=== PATIENT | male | born 1945 | race Caucasian/White ===

== ENCOUNTER 2021-08-31 12:52 | Emergency (ER) | payer MEDICARE, SELFPAY ==
[2021-08-31 16:09] VITALS: BP 180/95; PULSE 81; RESP 18; TEMP 37.3; O2SAT 99; BMI 39.4
[2021-08-31 17:53] LABS: COVID-19 Test Negative (Negative); IDNOW Serial# 08D9AD1C
--- NOTE | 2021-08-31 18:14 | ED.URI ---
HPI - URI/Sore Throat General Chief Complaint: Upper Respiratory Symptoms Stated Complaint: sore throat chest pain Time Seen by Provider: 08/31/21 17:43 History of Present Illness HPI Narrative: Patient here for COVID testing, he did have a mild cough for a day or 2 and a mild sore throat but both symptoms are gone today he is asymptomatic He is eating and drinking with no discomfort no shortness of breath no cough no sputum, he is fully vaccinated Related Data Allergies Allergy/AdvReac Type Severity Reaction Status Date / Time No Known Allergies Allergy Unverified 05/20/20 19:28 [No Known Allergies*] Review of Systems Review of Systems: Negatives are no fever no chills no dizziness no weakness no headache no runny nose no sore throat no neck pain no chest pain no shortness of breath no sputum no abdominal pain no nausea or vomiting Yes all other systems are reviewed and are negative FOR[facility]LY [facility], [facility] Past Medical History Source: nursing notes reviewed Medical History (Updated 09/01/21 @ 00:00 by Background Daemon) Hypertension Social History Social History Advance Directives: No Advance Directives Information Provided: No Physical Exam Vital Signs: Vital Signs: Last Vital Signs Temp 99.2 F 08/31/21 16:09 Pulse 81 08/31/21 16:09 Resp 18 08/31/21 16:09 BP 180/95 H 08/31/21 16:09 Pulse Ox 99 08/31/21 16:09 BMI result Body Mass Index 39.4 General appearance comfortable no acute distress The eyes no redness or discharge The sinuses nontender The pharynx clear with moist mucous membranes no redness swelling or exudate The neck is supple The chest is clear to auscultation bilateral with full symmetric equal breath sounds Heart no murmur auscultated Extremities full range of motion x4 Course Course Course Narrative: Well-appearing patient with negative COVID test is discharged, he is asymptomatic at this time MDM - URI/Sore Throat Lab Data Labs: Lab Results 08/31/21 Range/Units 17:00 COVID-19 (RUMA) Negative (Negative) COVID-19 Clin Com SEE NOTE Discharge Plan Discharge Clinical Impression: Upper respiratory infection Patient Disposition: Home, Self-Care Additional Instructions: COVID test today was negative, and her called symptoms seem to be done Your exam was normal, oxygen level was normal Your blood pressure was elevated so follow with primary doctor for further evaluation to control blood pressure Return to the ER any worse condition or any concerns Interventions: ED Discharge Assessment Last Done: 08/31/21 18:36 Discharge Date/Time: 08/31/21 18:37
== END 2021-08-31 18:37 | disposition home or self-care (01) ==
PROVIDERS: Emergency Provider Emergency Medicine Emergency Medical Services; PCP Internal Medicine
DX: J06.9 Acute upper respiratory infection, unspecified (principal); Z20.822 Contact with and (suspected) exposure to COVID-19; J02.9 Acute pharyngitis, unspecified; I10 Essential (primary) hypertension
CPT/HCPCS: 36415; 87635; 99283

== ENCOUNTER 2021-10-29 14:17 | Inpatient (IN) | payer MEDICARE, SELFPAY ==
--- NOTE | 2021-10-29 | ECG_ITS ---
Test Reason : CHEST PAIN Blood Pressure : / mmHG Vent. Rate : 075 BPM Atrial Rate : 075 BPM P-R Int : 140 ms QRS Dur : 084 ms QT Int : 356 ms P-R-T Axes : -11 -49 042 degrees QTc Int : 397 ms Normal sinus rhythm Left axis deviation Abnormal ECG No previous ECGs available Referred By: Generic ED Physician Electronically Signed By:ARPITA KEBEDE
--- NOTE | ~2021-10-29 | US_ITS ---
EXAMINATION: US VENOUS ULTRASOUND WITH DOPPLER LOWER EXTREMITY, BILATERAL CLINICAL INFORMATION: Shortness of breath. Found to have pulmonary thromboembolism on CTA of the chest done on 10/29/2021. Bilateral lower extremity DVT study is requested. Patient apparently has history of DVT x2 on the left. COMPARISON: CT of the chest done on 10/29/2021. Right lower extremity DVT study done on 08/12/2019. TECHNIQUE: Ultrasound of the deep veins is performed from the hip to the calf with compression sonography and color and pulse Doppler assessment. Spectral analysis with color-flow imaging is performed. FINDINGS: RIGHT: There is normal venous compression and respiratory variation and augmented flow. The visualized common femoral vein, superficial femoral vein, profunda femoral vein, popliteal vein, and the trifurcation region shows no evidence of deep venous thrombosis. There is no significant popliteal fossa cyst. LEFT: There is normal venous compression and respiratory variation and augmented flow. The visualized common femoral vein, superficial femoral vein, and profunda femoral vein shows no evidence of deep venous thrombosis. Intraluminal thrombus however is noted within the distal femoral vein as well as popliteal vein, likely chronic. There are no prior studies available at the moment for comparison. There is no significant popliteal fossa cyst. US/US venous duplex LE BI IMPRESSION: 1. No DVT demonstrated in the right lower extremity, unchanged since 08/12/2019. 2. Intraluminal thrombus is present within the left distal femoral vein and popliteal vein, likely chronic. There are however no prior studies available at the moment for comparison. Follow-up evaluation is recommended in 5-7 days to assess for any possible change. This critical result was discussed with Dr. Mason at 9:16 AM on 10/30/2021 and it was ascertained that the content and urgency of the report was understood at the time of direct communication.
--- NOTE | ~2021-10-29 | CT_ITS ---
EXAMINATION: CT ANGIOGRAM OF THE CHEST WITH CONTRAST (CT PULMONARY ANGIOGRAM FOR PE) CLINICAL INFORMATION: Shortness of breath. Elevated D-dimer test. COMPARISON: CXR from 10/29/2021 TECHNIQUE: Prior to contrast administration, noncontrast localization images were obtained. Subsequently, multidetector volumetric imaging was performed from the thoracic inlet to below the diaphragms following the administration of 65 mL Omnipaque 350 intravenous contrast. No contrast reaction reported. Sagittal, coronal, and MIP oblique sagittal reformatted images were obtained on the CT workstation, uploaded to PACS, and reviewed. This CT examination was performed using dose optimization techniques as appropriate, variously including the following: *Automated exposure control *Adjustment of mA and/or kV according to patient size (this includes techniques or standardized protocols for targeted exams where dose is matched to indication/reason for exam; i.e. extremities or head) *Use of iterative reconstruction technique DLP: Total exam dose-length product 666 mGy-cm FINDINGS: LUNGS AND PLEURA: Trachea and central airways are widely patent and normal in caliber. Linear opacity of mild atelectasis in right lower lobe. No pulmonary consolidation or pleural effusion. Small, 0.3 cm calcified granuloma is present in the right lower lobe (image 328, series 7). No suspicious lung nodule. QUALITY OF STUDY/CONTRAST BOLUS: Satisfactory. CARDIOVASCULAR: Pulmonary arteries are normal in size. There is a nonocclusive filling defect in the anterior segmental branch of the left upper lobe (images [id number], series 7). There are no large pulmonary emboli. The heart size is normal. Trace pericardial effusion is present. There is atherosclerotic calcification of the left anterior descending coronary artery. Mild atherosclerosis of the thoracic aorta without aneurysm or dissection. MEDIASTINUM/LOWER NECK: The esophagus is unremarkable. No mediastinal mass. LYMPHATICS: No pathologic sized axillary, hilar or mediastinal lymph nodes. There are peribronchial lymph nodes in the central right lower lobe that, on coronal images, measures 0.5 cm and 0.8 cm short axis dimension and the 0.5 cm lymph node is partially calcified. These are likely secondary to old granulomatous disease, given the finding of a calcified nodule in the right lower lobe. UPPER ABDOMEN: There is mild reflux of contrast into the inferior vena cava. This could be secondary to rapid rate of intravenous contrast administration and/or presence of mild heart strain. Note that there is no inward bowing of the interventricular septum. Therefore, there is no overt heart strain. OSSEOUS STRUCTURES: No acute or suspicious osseous abnormality. CT/CT angio chest PE protocol IMPRESSION: * Small embolism in the branch to the anterior segment of the left upper lobe. * Mild coronary artery atherosclerosis. Trace pericardial effusion is present. * The finding of contrast reflux into the IVC could be a manifestation of mild right heart strain. The critical test result was discussed with Neelam Servin NP, at 9:27 PM on 10/29/2021 and it was ascertained that the content and the importance of the findings was understood at the time of the direct communication.
--- NOTE | ~2021-10-29 | XR_ITS ---
EXAMINATION: XR CHEST CLINICAL INFORMATION: Shortness of breath COMPARISON: None TECHNIQUE: Frontal view of the chest was obtained. FINDINGS: No significant abnormality is noted involving the heart, lungs, mediastinum, bony thorax or soft tissues. XR/XR chest 1V IMPRESSION: Unremarkable examination.
[2021-10-29 14:25] VITALS: BP 158/85; PULSE 81; RESP 17; TEMP 36.6; O2SAT 99; BMI 38.6
--- NOTE | 2021-10-29 16:46 | ED.CHESTPAIN ---
HPI - Chest Pain General Chief Complaint: Chest Pain Stated Complaint: CP/SOB Time Seen by Provider: 10/29/21 21:48 Source: patient Mode of arrival: ambulatory Limitations: no limitations History of Present Illness HPI narrative: 76-year-old male presents for 2 weeks of chest pain, shortness of breath, shortness of breath on exertion, and chills over the past few days. Chest pain and shortness of breath worsens with exertion, does not notice any edema, dizziness, or changes in vision. MD complaint: chest pain Onset (ago): week(s) (2) Timing of current episode: episodic Prior episodes: Yes Onset: during rest and during exertion Pain location: substernal Pain radiation: none Severity: moderate Pain scale (0-10): 6 Quality: tightness and aching Exacerbating factors: exertion and inspiration Treatment prior to arrival: none Risk Factors Coronary artery disease risk factors: diabetes, hyperlipidemia and hypertension Thoracic aortic dissection risk factors: none Pulmonary embolism risk factors: history of deep vein thrombosis Related Data Home Medications Medication Instructions Recorded Confirmed cholecalciferol (vitamin D3) 50 1 tab PO DAILY 10/29/21 10/29/21 mcg (2,000 unit) tablet duloxetine 20 mg capsule,delayed 1 cap PO DAILY 10/29/21 10/29/21 release glipizide 5 mg tablet 1 tab PO BID 10/29/21 10/29/21 levothyroxine 150 mcg tablet 1 tab PO DAILY 10/29/21 10/29/21 loratadine 10 mg tablet 1 tab PO DAILY 10/29/21 10/29/21 metformin 500 mg tablet 2 tab PO BID 10/29/21 10/29/21 tamsulosin 0.4 mg capsule 1 cap PO BEDTIME 10/29/21 10/29/21 warfarin 5 mg tablet 5 mg PO DAILY 10/29/21 10/29/21 Allergies Allergy/AdvReac Type Severity Reaction Status Date / Time No Known Allergies Allergy Verified 10/29/21 23:26 [No Known Allergies*] Review of Systems Review of Systems: Constitutional: No Weight loss, No Fever, positive Chills, No Night Sweats, No Fatigue, No Malaise ENT/Mouth: No Hearing loss, No Ear Pain, No Nasal Congestion, No Sinus Pain, No Hoarseness, No sore throat, No Rhinorrhea, No Swallowing Difficulty Eyes: No Eye Pain, No Swelling, No Redness, No Foreign Body, No Discharge, No Vision Changes Cardiovascular: Positive Chest Pain, positive SOB, positive Dyspnea on Exertion, No Orthopnea, No Edema, No Palpitations Respiratory: No Cough, No Sputum, No Wheezing, No Smoke Exposure, No Dyspnea Gastrointestinal: No Nausea, No Vomiting, No Diarrhea, No abdominal Pain, No Hematochezia, No Melena Genitourinary: No irregular bleeding, No Dysuria, No Urinary Frequency, No Hematuria, No Urinary Incontinence, No Urgency, No Flank Pain, No Urinary Flow Changes, No Hesitancy Musculoskeletal: No joint pain, No Myalgias, No Joint Swelling Skin: No Skin Lesions, No rash Neuro: No Weakness, No Numbness, No Paresthesias, No Loss of Consciousness, No Dizziness, No Headache Psych: No Anxiety/Panic, No Depression, No SI/HI/AH/VH Heme/Lymph: No Bruising, No Bleeding,No Lymphadenopathy Endocrine: No Polyuria, No Polydipsia, No Temperature Intolerance Yes all other systems are reviewed and are negative [facility] Past Medical History Attestation statement: The following information was validated with the patient. Source: old records reviewed Medical History Hypertension Social History Social History Advance Directives: No Advance Directives Information Provided: No Physical Exam Vital Signs: Vital Signs: Last Vital Signs Temp 98.2 F 10/29/21 23:29 Pulse 66 10/29/21 23:29 Resp 18 10/29/21 23:29 BP 172/94 H 10/29/21 23:29 Pulse Ox 98 10/29/21 23:29 BMI result Body Mass Index 37.8 Appearance: Alert. Oriented X3. No acute distress. Head: Normal external exam. Normocephalic. Atraumatic. No Nathan signs noted. No raccoon eyes noted Eyes: PERRLA. EOMI. Conjunctiva and sclera normal. Eyelids normal. ENT: TM's Normal. Pharynx normal. Uvula midline. Moist mucous membranes. No trismus noted. No drooling noted. No muffled voice noted. Neck: Normal inspection. Neck supple. No adenopathy. CVS: Normal heart rate and rhythm. Heart sound normal. No murmurs noted. Apical pulse equal to pulses to extremities. No edema noted. Respiratory: No respiratory distress. Painless inspiration. Breath sounds normal. No wheezes/rales/rhonchi noted. Chest nontender. No accessory muscle usage noted or decreased air movement noted. Abdomen: Soft and nontender. Bowel sounds normal in all 4 quadrants. No distention noted. No organomegaly noted. No visible injury noted. Back: No CVA tenderness. Full range of motion noted. Skin: Skin warm and dry. Normal skin color. Normal skin turgor. No rashes/lesions/lacerations noted. Extremities: No lower extremity edema. Extremities exhibit normal range of motion. Extremities nontender. Neuro: cranial nerves 2-12 intact, no focal neural deficits, strength 5/5 to all extremities, No motor deficit. No sensory deficit. Course Course Course Narrative: 76-year-old male presents with approximately 2 weeks of chest pain, shortness of breath and shortness of breath on exertion with a few days of chills. Patient does not report any fevers, sick contacts, productive cough, dizziness, or abdominal pain. 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 18:40 elevated D-dimer. Order for PE study 21:30 discussion with Radiology study is positive for embolism to the anterior segment of left upper lobe and there is a finding of contrast reflux into the IVC which could be a manifestation of mild right heart strain. Patient does have trace pericardial effusion and mild coronary artery arthrosclerosis. 22:15 discussion with hospitalist, plan of care is to admit for right heart strain and PE. Will start heparin drip at this time. MDM - Chest Pain Differential Diagnosis Differential diagnosis: Likely fracture of rib, pneumothorax, stable angina, atypical chest pain, st elevation myocardial infarction, chest pain and biliary colic Differential diagnosis: PE Medical Records Data Attestation: I reviewed the patient's medical records. Lab Data Attestation: I reviewed the patient's lab results. Result diagrams: 10/29/21 17:29 10/29/21 17:55 Labs: Lab Results 10/29/21 10/29/21 10/29/21 Range/Units 17:29 17:29 17:29 WBC 4.1 L (4.8-10.8) X10*3/uL RBC 5.16 (4.60-5.80) X10*6/uL Hgb 13.6 L (14.0-18.0) g/dl Hct 45.0 (42.0-52.0) % MCV 87.2 (80.0-98.0) fL MCH 26.4 L (27.0-33.0) pg MCHC 30.2 L (31.0-36.0) g/dl RDW 13.9 (11.0-16.0) % Plt Count 225 (160-400) X10*3/uL MPV 10.3 (9.4-12.4) fL Immature Gran % (Auto) 0.2 (0.0-0.4) % Neut % (Auto) 47.5 (45-73) % Lymph % (Auto) 40.1 H (20-40) % [place] % (Auto) 8.1 (2-11) % Eos % (Auto) 3.4 (0-4) % Baso % (Auto) 0.7 (0-2) % Lymph # (Auto) 1.6 (1.2-4.9) X10*3/uL [place] # (Auto) 0.3 (0.1-1.2) X10*3/uL Eos # (Auto) 0.1 (0.0-0.4) X10*3/uL Baso # (Auto) 0.0 (0.0-0.2) X10*3/uL Abs Immat Gran (auto) 0.01 (0.00-0.03) X10*3/uL Absolute Neuts (auto) 1.9 L (2.0-8.3) x10*3/uL Absolute Nucleated RBC 0.000 (0.0-0.012) X10*3/uL Nucleated RBC % (auto) 0.0 (0.0-0.2) /100WBC PT 17.7 H (9.9-13.0) SEC INR 1.5 H (0.9-1.1) APTT 32.9 (24.1-38.0) SEC D-Dimer High Sensitivty 756 NG/ML Sodium (135-145) mmol/L Potassium (3.3-5.1) mmol/L Chloride (96-108) mmol/L Carbon Dioxide (22-29) mmol/L Anion Gap (12-20) BUN (9-16) mg/dL Creatinine (0.5-1.4) mg/dL Estim Creat Clear Calc Estimated GFR POC Glucose (60-115) mg/dL Random Glucose (60-115) mg/dL Calcium (8.4-10.2) mg/dL Magnesium (1.6-2.6) mg/dL Total Bilirubin (0.0-1.0) mg/dL Direct Bilirubin (0.0-0.5) mg/dL AST (5-37) U/L ALT (0-40) U/L Alkaline Phosphatase (39-117) U/L Troponin I High Sens 5.2 (<3.5-35.0) ng/L B-Natriuretic Peptide 72 (<100) pg/mL Total Protein (6.5-8.0) g/dL Albumin (3.5-5.0) g/dL Lipase (8-78) U/L Urine Color Urine Appearance Urine pH (5.0-8.0) Ur Specific [place] (1.005-1.025) Urine Protein (NEG-TRACE) MG/DL Urine Glucose (UA) (NEG) MG/DL Urine Ketones (NEG) MG/DL Urine Blood (NEG) Urine Nitrite (NEG) Ur Leukocyte Esterase (NEG) COVID-19 (RUMA) (Negative) COVID-19 Clin Com 10/29/21 10/29/21 10/29/21 Range/Units 17:29 17:53 17:55 WBC (4.8-10.8) X10*3/uL RBC (4.60-5.80) X10*6/uL Hgb (14.0-18.0) g/dl Hct (42.0-52.0) % MCV (80.0-98.0) fL MCH (27.0-33.0) pg MCHC (31.0-36.0) g/dl RDW (11.0-16.0) % Plt Count (160-400) X10*3/uL MPV (9.4-12.4) fL Immature Gran % (Auto) (0.0-0.4) % Neut % (Auto) (45-73) % Lymph % (Auto) (20-40) % [place] % (Auto) (2-11) % Eos % (Auto) (0-4) % Baso % (Auto) (0-2) % Lymph # (Auto) (1.2-4.9) X10*3/uL [place] # (Auto) (0.1-1.2) X10*3/uL Eos # (Auto) (0.0-0.4) X10*3/uL Baso # (Auto) (0.0-0.2) X10*3/uL Abs Immat Gran (auto) (0.00-0.03) X10*3/uL Absolute Neuts (auto) (2.0-8.3) x10*3/uL Absolute Nucleated RBC (0.0-0.012) X10*3/uL Nucleated RBC % (auto) (0.0-0.2) /100WBC PT (9.9-13.0) SEC INR (0.9-1.1) APTT (24.1-38.0) SEC D-Dimer High Sensitivty NG/ML Sodium 142 (135-145) mmol/L Potassium 4.5 (3.3-5.1) mmol/L Chloride 109 H (96-108) mmol/L Carbon Dioxide 24 (22-29) mmol/L Anion Gap 14 (12-20) BUN 11 (9-16) mg/dL Creatinine 1.09 (0.5-1.4) mg/dL Estim Creat Clear Calc 80.2 Estimated GFR > 60 POC Glucose 103 (60-115) mg/dL Random Glucose 118 H (60-115) mg/dL Calcium 8.8 (8.4-10.2) mg/dL Magnesium 2.1 (1.6-2.6) mg/dL Total Bilirubin 0.5 (0.0-1.0) mg/dL Direct Bilirubin 0.2 (0.0-0.5) mg/dL AST 17 (5-37) U/L ALT 8 (0-40) U/L Alkaline Phosphatase 67 (39-117) U/L Troponin I High Sens (<3.5-35.0) ng/L B-Natriuretic Peptide (<100) pg/mL Total Protein 6.6 (6.5-8.0) g/dL Albumin 3.8 (3.5-5.0) g/dL Lipase 25 (8-78) U/L Urine Color Urine Appearance Urine pH (5.0-8.0) Ur Specific [place] (1.005-1.025) Urine Protein (NEG-TRACE) MG/DL Urine Glucose (UA) (NEG) MG/DL Urine Ketones (NEG) MG/DL Urine Blood (NEG) Urine Nitrite (NEG) Ur Leukocyte Esterase (NEG) COVID-19 (RUMA) Negative (Negative) COVID-19 Clin Com See Note 10/29/21 10/29/21 Range/Units 19:30 22:04 WBC (4.8-10.8) X10*3/uL RBC (4.60-5.80) X10*6/uL Hgb (14.0-18.0) g/dl Hct (42.0-52.0) % MCV (80.0-98.0) fL MCH (27.0-33.0) pg MCHC (31.0-36.0) g/dl RDW (11.0-16.0) % Plt Count (160-400) X10*3/uL MPV (9.4-12.4) fL Immature Gran % (Auto) (0.0-0.4) % Neut % (Auto) (45-73) % Lymph % (Auto) (20-40) % [place] % (Auto) (2-11) % Eos % (Auto) (0-4) % Baso % (Auto) (0-2) % Lymph # (Auto) (1.2-4.9) X10*3/uL [place] # (Auto) (0.1-1.2) X10*3/uL Eos # (Auto) (0.0-0.4) X10*3/uL Baso # (Auto) (0.0-0.2) X10*3/uL Abs Immat Gran (auto) (0.00-0.03) X10*3/uL Absolute Neuts (auto) (2.0-8.3) x10*3/uL Absolute Nucleated RBC (0.0-0.012) X10*3/uL Nucleated RBC % (auto) (0.0-0.2) /100WBC PT (9.9-13.0) SEC INR (0.9-1.1) APTT (24.1-38.0) SEC D-Dimer High Sensitivty NG/ML Sodium (135-145) mmol/L Potassium (3.3-5.1) mmol/L Chloride (96-108) mmol/L Carbon Dioxide (22-29) mmol/L Anion Gap (12-20) BUN (9-16) mg/dL Creatinine (0.5-1.4) mg/dL Estim Creat Clear Calc Estimated GFR POC Glucose (60-115) mg/dL Random Glucose (60-115) mg/dL Calcium (8.4-10.2) mg/dL Magnesium (1.6-2.6) mg/dL Total Bilirubin (0.0-1.0) mg/dL Direct Bilirubin (0.0-0.5) mg/dL AST (5-37) U/L ALT (0-40) U/L Alkaline Phosphatase (39-117) U/L Troponin I High Sens 3.6 (<3.5-35.0) ng/L B-Natriuretic Peptide (<100) pg/mL Total Protein (6.5-8.0) g/dL Albumin (3.5-5.0) g/dL Lipase (8-78) U/L Urine Color YELLOW Urine Appearance CLEAR Urine pH 6.0 (5.0-8.0) Ur Specific [place] 1.025 (1.005-1.025) Urine Protein NEG (NEG-TRACE) MG/DL Urine Glucose (UA) NEG (NEG) MG/DL Urine Ketones NEG (NEG) MG/DL Urine Blood NEG (NEG) Urine Nitrite NEG (NEG) Ur Leukocyte Esterase NEG (NEG) COVID-19 (RUMA) (Negative) COVID-19 Clin Com Imaging Data Chest x-ray: Attestation: I personally reviewed and interpreted this imaging study as follows: Radiologist's impression: EXAMINATION: XR CHEST CLINICAL INFORMATION: Shortness of breath COMPARISON: None TECHNIQUE: Frontal view of the chest was obtained. FINDINGS: No significant abnormality is noted involving the heart, lungs, mediastinum, bony thorax or soft tissues. XR/XR chest 1V IMPRESSION: Unremarkable examination. CT PE: Attestation: I personally reviewed and interpreted this imaging study as follows: Radiologist's impression: FINDINGS: LUNGS AND PLEURA: Trachea and central airways are widely patent and normal in caliber. Linear opacity of mild atelectasis in right lower lobe. No pulmonary consolidation or pleural effusion. Small, 0.3 cm calcified granuloma is present in the right lower lobe (image 328, series 7). No suspicious lung nodule. QUALITY OF STUDY/CONTRAST BOLUS: Satisfactory. CARDIOVASCULAR: Pulmonary arteries are normal in size. There is a nonocclusive filling defect in the anterior segmental branch of the left upper lobe (images [id number], series 7). There are no large pulmonary emboli. The heart size is normal. Trace pericardial effusion is present. There is atherosclerotic calcification of the left anterior descending coronary artery. Mild atherosclerosis of the thoracic aorta without aneurysm or dissection. MEDIASTINUM/LOWER NECK: The esophagus is unremarkable. No mediastinal mass. LYMPHATICS: No pathologic sized axillary, hilar or mediastinal lymph nodes. There are peribronchial lymph nodes in the central right lower lobe that, on coronal images, measures 0.5 cm and 0.8 cm short axis dimension and the 0.5 cm lymph node is partially calcified. These are likely secondary to old granulomatous disease, given the finding of a calcified nodule in the right lower lobe. UPPER ABDOMEN: There is mild reflux of contrast into the inferior vena cava. This could be secondary to rapid rate of intravenous contrast administration and/or presence of mild heart strain. Note that there is no inward bowing of the interventricular septum. Therefore, there is no overt heart strain. OSSEOUS STRUCTURES: No acute or suspicious osseous abnormality.? CT/CT angio chest PE protocol IMPRESSION: *? Small embolism in the branch to the anterior segment of the left upper lobe. *? Mild coronary artery atherosclerosis. Trace pericardial effusion is present. *? The finding of contrast reflux into the IVC could be a manifestation of mild right heart strain. ? ? The critical test result was discussed with Neelam Servin NP, at 9:27 PM on 10/29/2021 and it was ascertained that the content and the importance of the findings was understood at the time of the direct communication. ECG Data ECG #1: Attestation: I personally reviewed and interpreted this ECG as follows: ECG interpretation date: 10/29/21 ECG interpretation time: 14:29 Prior ECG tracings: not available for review Interpretation: Vent. rate 75 BPM ID interval 140 ms QRS duration 84 ms QT/QTc 356/397 ms P-R-T axes -11 -49 42 Normal sinus rhythm Left anterior fascicular block Abnormal ECG No previous ECGs available Scores [place] PE Clinical symptoms of DVT: 3 Previous DVT or PE: 1.5 Score: 4.5 2-tier Risk: likely risk (17-53%) Critical Care Time Critical Care Time Critical Care Time: Yes Total Critical Care Time: 65 Attestation: I have personally provided critical care time exclusive of time spent on separately billable procedures. Time includes review of laboratory data, radiology results, discussion with consultants, and monitoring for potential decompensation. Interventions were performed as documented. Discharge Plan Discharge Clinical Impression: Chest pain, Pulmonary embolism, Ventricular dysfunction, right Patient Disposition: Admitted As Inpatient
[2021-10-29 16:57] VITALS: BP 152/91; PULSE 68; RESP 16; TEMP 36.8; O2SAT 98
[2021-10-29 17:33] LABS: MANUAL DIFF FLAG NO
[2021-10-29 17:35] LABS: Basophils Percent Auto 0.7 % (0-2); Eosinophils Absolute Auto 0.1 X10*3/uL (0.0-0.4); Eosinophils Percent Auto 3.4 % (0-4); Hemoglobin 13.6 g/dl (14.0-18.0); Imm Gran Abs Auto 0.01 X10*3/uL (0.00-0.03); Imm Gran Pct Auto 0.2 % (0.0-0.4); Lymphocytes Absolute Auto 1.6 X10*3/uL (1.2-4.9); Lymphocytes Percent Auto 40.1 % (20-40); Mean Corpuscular HGB Conc 30.2 g/dl (31.0-36.0); Mean Corpuscular Hemoglobin 26.4 pg (27.0-33.0); Mean Corpuscular Volume 87.2 fL (80.0-98.0); Mean Platelet Volume 10.3 fL (9.4-12.4); Monocytes Absolute Auto 0.3 X10*3/uL (0.1-1.2); Monocytes Percent Auto 8.1 % (2-11); Neutrophils Absolute Auto 1.9 x10*3/uL (2.0-8.3); Neutrophils Percent Auto 47.5 % (45-73); Platelet Count 225 X10*3/uL (160-400); Red Blood Count 5.16 X10*6/uL (4.60-5.80); Red Cell Distribution Width 13.9 % (11.0-16.0); White Blood Count 4.1 X10*3/uL (4.8-10.8)
[2021-10-29 17:42] LABS: INTERNATIONAL NORM RATIO 1.5 (0.9-1.1); Prothrombin Time 17.7 SEC (9.9-13.0)
[2021-10-29 17:44] VITALS: BP 143/87; PULSE 68; RESP 16; TEMP 36.8; O2SAT 97
[2021-10-29 17:45] LABS: D Dimer High Sensitivity 756 NG/ML; Partial Thromboplastin Time 32.9 SEC (24.1-38.0)
[2021-10-29 17:55] LABS: B Type Natriuretic Peptide 72 pg/mL (<100); Troponin-I High Sensitivity 5.2 ng/L (<3.5-35.0)
[2021-10-29 17:58] LABS: Glucose, Whole Blood 103 mg/dL (60-115)
[2021-10-29 18:16] LABS: COVID-19 Test Negative (Negative)
[2021-10-29 18:27] LABS: Alanine Aminotransferase 8 U/L (0-40); Albumin Level 3.8 g/dL (3.5-5.0); Alkaline Phosphatase 67 U/L (39-117); Anion Gap 14 (12-20); Aspartate Amino Transferase 17 U/L (5-37); Bilirubin Direct 0.2 mg/dL (0.0-0.5); Bilirubin Total 0.5 mg/dL (0.0-1.0); Blood Urea Nitrogen 11 mg/dL (9-16); Calcium 8.8 mg/dL (8.4-10.2); Carbon Dioxide 24 mmol/L (22-29); Chloride 109 mmol/L (96-108); Creatinine Clr Calc Pharmacy 80.2; Estimated Glomerular Filt Rate > 60; Glucose Random 118 mg/dL (60-115); Lipase 25 U/L (8-78); Magnesium 2.1 mg/dL (1.6-2.6); Potassium 4.5 mmol/L (3.3-5.1); Sodium 142 mmol/L (135-145); Total Protein 6.6 g/dL (6.5-8.0)
[2021-10-29 19:18] VITALS: BP 149/94; PULSE 65; RESP 16; TEMP 36.7; O2SAT 97
[2021-10-29 19:40] LABS: Appearance Urine CLEAR; Color Urine YELLOW; Glucose Urine UA NEG (NEG); Leukocyte Esterase Urine NEG (NEG); Nitrite Urine NEG (NEG); Specific Gravity - Urine 1.025 (1.005-1.025); Urine Blood NEG (NEG); Urine Ketones NEG (NEG); Urine Protein NEG (NEG-TRACE)
[2021-10-29] MEDS: iohexoL 350 MG/ML 100 ML INFUS..BTL 65 ML IV (19:53)
[2021-10-29 21:36] VITALS: BP 159/90; PULSE 60; RESP 16; O2SAT 98
[2021-10-29 22:37] LABS: Troponin-I High Sensitivity 3.6 ng/L (<3.5-35.0)
[2021-10-29 22:45] VITALS: BMI 37.8
[2021-10-29] MEDS: Heparin Sodium,Porcine/1/2NS 25,000 UNIT/250 ML IV.SOLN 17.23 UNIT IVCONT (23:21)
--- NOTE | 2021-10-29 23:26 | PM.IMHP ---
History of Present Illness Date of Service: 10/29/21 Chief Complaint: sob, chest pain This is a 76-year-old male with past medical history of hypertension, DVT, depression anxiety, diabetes, hypothyroidism, BPH, presents to the hospital with complaints of left-sided chest pain. Patient reports that his pain has been going on for about 3-4 weeks, intermittent, radiating to both arms, lasting few minutes, occurring spontaneous and resolving spontaneously. Worse with deep inspiration. He describes the pain as sharp pain, 6/10. Patient reports some cough, as well as some sputum production, no abdominal pain nausea or vomiting, no diarrhea constipation, no urinary symptoms and no lower extremity edema. On arrival to the ED patient hemodynamically stable with no significant abnormal vitals except for a slightly elevated blood pressure Labs are significant for WBC count of 4.0, PT of 17.7, INR of 1.5, BNP of 72, troponin of 3.6, UA negative, Chest CT angiogram shows small embolism in the branch to the anterior segment of the left upper lobe. Contrast reflux into the IVC could be manage station of mild right heart failure Per patient he has had DVT in his left lower extremity twice in the past and has had placement of a filter in his left femoral vein and takes Coumadin. Patient reports compliance with Coumadin. Review of Systems Review of Systems: Yes all other systems are reviewed and are negative [facility] Medical History (Updated 10/30/21 @ 06:23 by Saroj Nagel MD) BPH (benign prostatic hyperplasia) Depression Diabetes History of colon cancer History of DVT (deep vein thrombosis) Hypertension Hypothyroidism Family History (Updated 10/30/21 @ 06:24 by Saroj aNgel MD) Mother Diabetes Other Hypertension Surgical History (Updated 10/30/21 @ 06:23 by Saroj Nagel MD) H/O thyroidectomy History of colon surgery S/P IVC filter Social History (Updated 10/30/21 @ 06:24 by Saroj Nagel MD) Alcohol intake: current Patient Tobacco Use Status: Never used Tobacco Use of substances other than those prescribed or required for medical reasons: No Advance Directives: No Advance Directives Information Provided: No Meds Allergies Allergy/AdvReac Type Severity Reaction Status Date / Time No Known Allergies Allergy Verified 10/29/21 23:26 [No Known Allergies*] Active Medications: Current Medications Heparin Sodium (Porcine) (Heparin Sodium,Porcine 5,000 Unit/Ml Vial) 4,900 unit 40 unit/kg (4900 unit) IVPUSH PROTOCOL BOLUS PRN; Protocol PRN Reason: 40 unit/kg - Heparin Protocol Heparin Sodium (Porcine) (Heparin Sodium,Porcine 5,000 Unit/Ml Vial) 9,800 unit 80 unit/kg (9800 unit) IVPUSH PROTOCOL BOLUS PRN; Protocol PRN Reason: 80 unit/kg - Heparin Protocol Heparin Sodium/Sodium Chloride () 25,000 unit in 250 mls @ 0 mls/hr IVCONT .Q0M EL; Protocol Last Admin: 10/29/21 23:21 Dose: 14 units/kg/hr, 17.23 mls/hr Documented by: Home Medications Medication Instructions Recorded Confirmed Last Taken Type cholecalciferol (vitamin D3) 50 1 tab PO DAILY 10/29/21 10/29/21 Unknown History mcg (2,000 unit) tablet duloxetine 20 mg capsule,delayed 1 cap PO DAILY 10/29/21 10/29/21 Unknown History release glipizide 5 mg tablet 1 tab PO BID 10/29/21 10/29/21 Unknown History levothyroxine 150 mcg tablet 1 tab PO DAILY 10/29/21 10/29/21 Unknown History loratadine 10 mg tablet 1 tab PO DAILY 10/29/21 10/29/21 Unknown History metformin 500 mg tablet 2 tab PO BID 10/29/21 10/29/21 Unknown History tamsulosin 0.4 mg capsule 1 cap PO BEDTIME 10/29/21 10/29/21 Unknown History warfarin 5 mg tablet 5 mg PO DAILY 10/29/21 10/29/21 Unknown History Physical Exam Vital Signs and Narrative: Vital Signs: Last Vital Signs Temp 98.0 F 10/29/21 19:18 Pulse 60 10/29/21 21:36 Resp 16 10/29/21 21:36 BP 159/90 H 10/29/21 21:36 Pulse Ox 98 10/29/21 21:36 BMI result Body Mass Index 37.8 Const: General: cooperative and no acute distress Orientation/consciousness: patient oriented x3 Eyes: General: appearance normal, both eyes and all related structures Resp: Effort & Inspection: normal respiratory effort Auscultation: clear to auscultation bilaterally Cardio: Rate: regular rate Rhythm: regular rhythm GI: Palpation (GI): Soft to palpation Auscultation: normal bowel sounds Skin: General skin exam: no rashes or lesions noted Neuro: General: patient oriented x3 Cognition (Neuro): normal cognition Extrem: General: Yes normal to inspection and Yes no pedal edema Results Labs CBC and Chem 7: 10/30/21 05:49 10/30/21 05:49 Labs: Laboratory Results - last 24 hr 10/29/21 10/29/21 10/29/21 17:29 17:29 17:29 MCV 87.2 MCH 26.4 L MCHC 30.2 L RDW 13.9 Plt Count 225 MPV 10.3 Immature Gran % (Auto) 0.2 Neut % (Auto) 47.5 Lymph % (Auto) 40.1 H [place] % (Auto) 8.1 Eos % (Auto) 3.4 Baso % (Auto) 0.7 Lymph # (Auto) 1.6 [place] # (Auto) 0.3 Eos # (Auto) 0.1 Baso # (Auto) 0.0 Abs Immat Gran (auto) 0.01 Absolute Neuts (auto) 1.9 L Absolute Nucleated RBC 0.000 Nucleated RBC % (auto) 0.0 PT 17.7 H INR 1.5 H APTT 32.9 D-Dimer High Sensitivty 756 Anion Gap Estim Creat Clear Calc Estimated GFR POC Glucose Random Glucose Calcium Magnesium Total Bilirubin Direct Bilirubin AST ALT Alkaline Phosphatase B-Natriuretic Peptide 72 Total Protein Albumin Lipase Urine Color Urine Appearance Urine pH Ur Specific [place] Urine Protein Urine Glucose (UA) Urine Ketones Urine Blood Urine Nitrite Ur Leukocyte Esterase COVID-19 (RUMA) COVID-19 Clin Com 10/29/21 10/29/21 10/29/21 17:29 17:53 17:55 MCV MCH MCHC RDW Plt Count MPV Immature Gran % (Auto) Neut % (Auto) Lymph % (Auto) [place] % (Auto) Eos % (Auto) Baso % (Auto) Lymph # (Auto) [place] # (Auto) Eos # (Auto) Baso # (Auto) Abs Immat Gran (auto) Absolute Neuts (auto) Absolute Nucleated RBC Nucleated RBC % (auto) PT INR APTT D-Dimer High Sensitivty Anion Gap 14 Estim Creat Clear Calc 80.2 Estimated GFR > 60 POC Glucose 103 Random Glucose 118 H Calcium 8.8 Magnesium 2.1 Total Bilirubin 0.5 Direct Bilirubin 0.2 AST 17 ALT 8 Alkaline Phosphatase 67 B-Natriuretic Peptide Total Protein 6.6 Albumin 3.8 Lipase 25 Urine Color Urine Appearance Urine pH Ur Specific [place] Urine Protein Urine Glucose (UA) Urine Ketones Urine Blood Urine Nitrite Ur Leukocyte Esterase COVID-19 (RUMA) Negative COVID-19 Clin Com See Note 10/29/21 19:30 MCV MCH MCHC RDW Plt Count MPV Immature Gran % (Auto) Neut % (Auto) Lymph % (Auto) [place] % (Auto) Eos % (Auto) Baso % (Auto) Lymph # (Auto) [place] # (Auto) Eos # (Auto) Baso # (Auto) Abs Immat Gran (auto) Absolute Neuts (auto) Absolute Nucleated RBC Nucleated RBC % (auto) PT INR APTT D-Dimer High Sensitivty Anion Gap Estim Creat Clear Calc Estimated GFR POC Glucose Random Glucose Calcium Magnesium Total Bilirubin Direct Bilirubin AST ALT Alkaline Phosphatase B-Natriuretic Peptide Total Protein Albumin Lipase Urine Color YELLOW Urine Appearance CLEAR Urine pH 6.0 Ur Specific [place] 1.025 Urine Protein NEG Urine Glucose (UA) NEG Urine Ketones NEG Urine Blood NEG Urine Nitrite NEG Ur Leukocyte Esterase NEG COVID-19 (RUMA) COVID-19 Clin Com Imaging Radiologist's Impressions: Impressions Chest X-Ray 10/29/21 14:45 IMPRESSION: Unremarkable examination. Chest CTA 10/29/21 20:30 IMPRESSION: * Small embolism in the branch to the anterior segment of the left upper lobe. * Mild coronary artery atherosclerosis. Trace pericardial effusion is present. * The finding of contrast reflux into the IVC could be a manifestation of mild right heart strain. The critical test result was discussed with Neelam Servin NP, at 9:27 PM on 10/29/2021 and it was ascertained that the content and the importance of the findings was understood at the time of the direct communication. Assessment and Plan (1) Pulmonary embolism: Status: Acute (2) Chest pain: Status: Acute (3) Ventricular dysfunction, right: Status: Acute Plan 76-year-old male with past medical history of DVT on Coumadin, with subtherapeutic INR presents to the hospital found to have PE # pulmonary embolus - likely secondary to subtherapeutic INR - patient reports history of IVC filter as well as history of DVT x2 in the past - INR subtherapeutic - will place on heparin drip - there is evidence of right heart strain, BNP is negative, will obtain echocardiogram - consult Hematology-Oncology # chest pain - likely secondary to PE - troponin negative x1, EKG shows no ST T-wave changes - will obtain echocardiogram in the setting of PE to rule out right heart dysfunction # diabetes - low-dose sliding scale insulin - hold oral antihyperglycemics - diabetic diet # BPH - continue tamsulosin # hypothyroidism - continue levothyroxine DVT prophylaxis: heparin Quality Stroke Does the patient have a stroke diagnosis?: No VTE Prior VTE?: No VTE Risk Level:: Medical - moderate - high VTE Device Contraindication: Treatment Not Indicated VTE Drug Contraindication: N/A - Med Ordered
[2021-10-29 23:29] VITALS: BP 172/94; PULSE 66; RESP 18; TEMP 36.8; O2SAT 98
--- NOTE | 2021-10-29 23:34 | PC.NURSE ---
patient resting comfortably in bed at this time. patient updated on plan of care and started on heparin drip. contacted provider for heparin bolus order, no heparin bolus desired at this time by care team. patient on secured entrance monitor, call sheikh in reach.
[2021-10-30 02:52] VITALS: BP 168/95; PULSE 61; RESP 14; O2SAT 98
--- NOTE | 2021-10-30 02:55 | PC.NURSE ---
Pt asleep on stretcher in between care in NAD, breathing with ease on RA, VSS. Pt awoke during VS, denies pain/discomfort. Heparin gtt continues to infuse appropriately. Pt SB-NSR on ekg monitor. Pt stretcher in low locked position, rails raised, call sheikh within reach.
[2021-10-30 05:44] VITALS: BP 173/90; PULSE 62; RESP 12; TEMP 36.7; O2SAT 98
[2021-10-30 05:54] LABS: MANUAL DIFF FLAG NO
[2021-10-30 05:55] LABS: Basophils Percent Auto 0.7 % (0-2); Eosinophils Absolute Auto 0.2 X10*3/uL (0.0-0.4); Hematocrit 44.7 % (42.0-52.0); Imm Gran Abs Auto 0.01 X10*3/uL (0.00-0.03); Imm Gran Pct Auto 0.2 % (0.0-0.4); Lymphocytes Percent Auto 50.4 % (20-40); Mean Corpuscular HGB Conc 31.3 g/dl (31.0-36.0); Mean Corpuscular Hemoglobin 26.6 pg (27.0-33.0); Monocytes Absolute Auto 0.3 X10*3/uL (0.1-1.2); Monocytes Percent Auto 6.9 % (2-11); Neutrophils Absolute Auto 1.4 x10*3/uL (2.0-8.3); Neutrophils Percent Auto 35.8 % (45-73); Platelet Count 220 X10*3/uL (160-400); Red Blood Count 5.26 X10*6/uL (4.60-5.80); Red Cell Distribution Width 13.9 % (11.0-16.0)
--- NOTE | 2021-10-30 05:55 | PC.NURSE ---
Pt awoken during VS and blood draw, denies pain/discomfort. Pt remains SB-NSR on quality assurance monitor chassis. Stretcher in low locked position, rails raised, call sheikh within reach. Awaiting PTT HD to result to titrate heparin gtt accordingly
[2021-10-30 06:12] LABS: Anion Gap 12 (12-20); Blood Urea Nitrogen 9 mg/dL (9-16); Carbon Dioxide 24 mmol/L (22-29); Chloride 107 mmol/L (96-108); Creatinine Clr Calc Pharmacy 81.6; Estimated Glomerular Filt Rate > 60; Glucose Random 113 mg/dL (60-115); Potassium 4.1 mmol/L (3.3-5.1); Sodium 139 mmol/L (135-145)
[2021-10-30 06:51] LABS: PTT Heparin Drip 188.6 SEC (53-77.9)
--- NOTE | 2021-10-30 06:54 | PC.NURSE ---
Pt's PTT HD critically high. Per protocol, heparin being held at this time and stat PTT HD ordered. Oncoming RN to be made aware.
[2021-10-30 07:23] LABS: Glucose, Whole Blood 112 mg/dL (60-115)
--- NOTE | 2021-10-30 07:24 | PHA.MEDREC ---
Pharmacy Consult ? Medication Reconciliation RN has completed the medication reconciliation. Pharmacy reviewed.
--- NOTE | 2021-10-30 08:01 | P.PNIM_ITS ---
Subjective Subjective Date of Service: 10/30/21 Interval History: pulm embolism , has of left leg dvt Review of Systems Patient chest tightness and shortness of breath seems to be improving Denies any abdominal pain or nausea or vomiting or fever or chills. Physical Exam Vital Signs: Vital Signs: Last Vital Signs Temp 98.0 F 10/30/21 05:44 Pulse 62 10/30/21 05:44 Resp 12 10/30/21 05:44 BP 173/90 H 10/30/21 05:44 Pulse Ox 98 10/30/21 05:44 BMI result Body Mass Index 37.8 Appearance: Alert.? Oriented X3.? not in distress.? Eyes: Pupils equal, round and reactive to light.? Sclera nonicteric.? ENT: Pharynx normal.? Moist mucous membranes. cvs: rrr, [id number] . res: clear to auscultation ,no rhonchii or wheezing abd: no rebound or guarding ,nt, bs present. ext pulses present , no cyanosis, has ch venostasis type changes on lower ext left>right . neuro: axo3 , nonfocal. Objective Data Active Medications Acetaminophen (Acetaminophen 325 Mg Tablet) 650 mg PO Q6H PRN PRN Reason: Pain, Mild (Pain Scale 1-3) Dextrose (Dextrose 50 % 25 Gm/50 Ml Syringe) 25 gm IVPUSH Q15M PRN; Protocol PRN Reason: per Hypoglycemia Standing Ord. Docusate Sodium (Docusate Sodium 100 Mg Capsule) 100 mg PO DAILY PRN PRN Reason: Constipation Duloxetine HCl (Duloxetine Hcl 20 Mg Capsule.Dr) 20 mg PO DAILY EL Glucose (Glucose Gel 15 Gm Gel..Gram.) 15 gm PO Q15M PRN; Protocol PRN Reason: per Hypoglycemia Standing Ord. Heparin Sodium (Porcine) (Heparin Sodium,Porcine 5,000 Unit/Ml Vial) 4,900 unit 40 unit/kg (4900 unit) IVPUSH PROTOCOL BOLUS PRN; Protocol PRN Reason: 40 unit/kg - Heparin Protocol Heparin Sodium (Porcine) (Heparin Sodium,Porcine 5,000 Unit/Ml Vial) 9,800 unit 80 unit/kg (9800 unit) IVPUSH PROTOCOL BOLUS PRN; Protocol PRN Reason: 80 unit/kg - Heparin Protocol Heparin Sodium/Sodium Chloride () 25,000 unit in 250 mls @ 0 mls/hr IVCONT .Q0M [facility]; Protocol Last Titration: 10/30/21 06:58 Dose: 0 units/kg/hr, 0 mls/hr Documented by: GHULAM Cosigned by: JOCELYN Insulin Human Lispro (Insulin Lispro 100 Unit/Ml 3 Ml Vial) 0 unit SUBCUT QIDACHS [facility]; Protocol Last Admin: 10/30/21 07:34 Dose: Not Given Documented by: JUANCARLOS Non-Admin Reason: No Insulin Coverage Levothyroxine Sodium (Levothyroxine Sodium 150 Mcg Tablet) 150 mcg PO DAILY@0600 [facility] Loratadine (Loratadine 10 Mg Tablet) 10 mg PO DAILY [facility] Ondansetron HCl (Ondansetron Hcl 4 Mg/2 Ml Vial) 4 mg IVPUSH Q8H PRN PRN Reason: Nausea and Vomiting Sodium Chloride (0.9 % Sodium Chloride Flush 3 Ml Syringe) 3 ml IVFLUSH QSHIFT [facility] Last Admin: 10/29/21 23:51 Dose: Not Given Documented by: GHULAM Non-Admin Reason: IV Running Tamsulosin HCl (Tamsulosin Hcl 0.4 Mg Capsule) 0.4 mg PO BEDTIME [facility] Vitamin D (Cholecalciferol (Vitamin D3) 25 Mcg Tablet) 50 mcg PO DAILY [facility] Labs CBC & Chem 7: 10/30/21 05:49 10/30/21 05:49 Labs: Laboratory Results - last 24 hr 10/29/21 10/29/21 10/29/21 17:29 17:29 17:29 MCV 87.2 MCH 26.4 L MCHC 30.2 L RDW 13.9 Plt Count 225 MPV 10.3 Immature Gran % (Auto) 0.2 Neut % (Auto) 47.5 Lymph % (Auto) 40.1 H [place] % (Auto) 8.1 Eos % (Auto) 3.4 Baso % (Auto) 0.7 Lymph # (Auto) 1.6 [place] # (Auto) 0.3 Eos # (Auto) 0.1 Baso # (Auto) 0.0 Abs Immat Gran (auto) 0.01 Absolute Neuts (auto) 1.9 L Absolute Nucleated RBC 0.000 Nucleated RBC % (auto) 0.0 PT 17.7 H INR 1.5 H APTT 32.9 aPTT Heparin Protocol D-Dimer High Sensitivty 756 Anion Gap Estim Creat Clear Calc Estimated GFR POC Glucose Random Glucose Calcium Magnesium Total Bilirubin Direct Bilirubin AST ALT Alkaline Phosphatase B-Natriuretic Peptide 72 Total Protein Albumin Lipase Urine Color Urine Appearance Urine pH Ur Specific [place] Urine Protein Urine Glucose (UA) Urine Ketones Urine Blood Urine Nitrite Ur Leukocyte Esterase COVID-19 (RUMA) COVID-19 Clin Com 10/29/21 10/29/21 10/29/21 17:29 17:53 17:55 MCV MCH MCHC RDW Plt Count MPV Immature Gran % (Auto) Neut % (Auto) Lymph % (Auto) [place] % (Auto) Eos % (Auto) Baso % (Auto) Lymph # (Auto) [place] # (Auto) Eos # (Auto) Baso # (Auto) Abs Immat Gran (auto) Absolute Neuts (auto) Absolute Nucleated RBC Nucleated RBC % (auto) PT INR APTT aPTT Heparin Protocol D-Dimer High Sensitivty Anion Gap 14 Estim Creat Clear Calc 80.2 Estimated GFR > 60 POC Glucose 103 Random Glucose 118 H Calcium 8.8 Magnesium 2.1 Total Bilirubin 0.5 Direct Bilirubin 0.2 AST 17 ALT 8 Alkaline Phosphatase 67 B-Natriuretic Peptide Total Protein 6.6 Albumin 3.8 Lipase 25 Urine Color Urine Appearance Urine pH Ur Specific [place] Urine Protein Urine Glucose (UA) Urine Ketones Urine Blood Urine Nitrite Ur Leukocyte Esterase COVID-19 (RUMA) Negative COVID-19 Clin Com See Note 10/29/21 10/30/21 10/30/21 19:30 05:49 05:49 MCV 85.0 MCH 26.6 L MCHC 31.3 RDW 13.9 Plt Count 220 MPV 10.0 Immature Gran % (Auto) 0.2 Neut % (Auto) 35.8 L Lymph % (Auto) 50.4 H [place] % (Auto) 6.9 Eos % (Auto) 6.0 H Baso % (Auto) 0.7 Lymph # (Auto) 2.0 [place] # (Auto) 0.3 Eos # (Auto) 0.2 Baso # (Auto) 0.0 Abs Immat Gran (auto) 0.01 Absolute Neuts (auto) 1.4 L Absolute Nucleated RBC 0.000 Nucleated RBC % (auto) 0.0 PT INR APTT aPTT Heparin Protocol 188.6 H* D-Dimer High Sensitivty Anion Gap Estim Creat Clear Calc Estimated GFR POC Glucose Random Glucose Calcium Magnesium Total Bilirubin Direct Bilirubin AST ALT Alkaline Phosphatase B-Natriuretic Peptide Total Protein Albumin Lipase Urine Color YELLOW Urine Appearance CLEAR Urine pH 6.0 Ur Specific [place] 1.025 Urine Protein NEG Urine Glucose (UA) NEG Urine Ketones NEG Urine Blood NEG Urine Nitrite NEG Ur Leukocyte Esterase NEG COVID-19 (RUMA) COVID-19 Clin Com 10/30/21 10/30/21 05:49 07:19 MCV MCH MCHC RDW Plt Count MPV Immature Gran % (Auto) Neut % (Auto) Lymph % (Auto) [place] % (Auto) Eos % (Auto) Baso % (Auto) Lymph # (Auto) [place] # (Auto) Eos # (Auto) Baso # (Auto) Abs Immat Gran (auto) Absolute Neuts (auto) Absolute Nucleated RBC Nucleated RBC % (auto) PT INR APTT aPTT Heparin Protocol D-Dimer High Sensitivty Anion Gap 12 Estim Creat Clear Calc 81.6 Estimated GFR > 60 POC Glucose 112 Random Glucose 113 Calcium 9.0 Magnesium Total Bilirubin Direct Bilirubin AST ALT Alkaline Phosphatase B-Natriuretic Peptide Total Protein Albumin Lipase Urine Color Urine Appearance Urine pH Ur Specific [place] Urine Protein Urine Glucose (UA) Urine Ketones Urine Blood Urine Nitrite Ur Leukocyte Esterase COVID-19 (RUMA) COVID-19 Clin Com Assessment and Plan (1) Pulmonary embolism: Status: Acute (2) Ventricular dysfunction, right: Status: Acute (3) Chest pain: Status: Acute Plan 76-year-old male with past medical history of DVT on Coumadin, with subtherapeut ic INR presents to the hospital found to have PE 1. pulmonary embolus-? likely secondary to subtherapeutic INR sob and chest pain improving - ? patient reports history of IVC filter as well as history of DVT x2 in the past dvt study repeated-?Intraluminal thrombus is present within the left distal femoral vein and popliteal vein, likely chronic.?There are however no prior studies available at the moment for comparison. Follow-up evaluation is recommended in 5-7 days to assess for any possible change. -? INR subtherapeutic trop and bnp seems fine. on place on heparin drip -? there is evidence of right heart strain, BNP is negative, obtain echocardiogram -? consult Hematology-Oncology 2. chest pain -? likely secondary to PE -? troponin negative x2, EKG shows no ST T-wave changes echocardiogram in the setting of PE to rule out right heart dysfunction 3.? diabetes -? low-dose sliding scale insulin -? hold oral antihyperglycemics -? diabetic diet 4. ? BPH -? continue tamsulosin 5.? hypothyroidism -? continue levothyroxine ?DVT prophylaxis: heparin Quality Stroke Does the patient have a stroke diagnosis?: No VTE Prior VTE?: No VTE Risk Level:: Medical - moderate - high VTE Device Contraindication: Treatment Not Indicated VTE Drug Contraindication: N/A - Med Ordered
[2021-10-30 08:15] LABS: PTT Heparin Drip > 200.0 SEC (53-77.9)
[2021-10-30] MEDS: Levothyroxine Sodium 150 MCG TABLET PO (08:23)
[2021-10-30] MEDS: Loratadine 10 MG TABLET PO (08:23)
[2021-10-30] MEDS: Cholecalciferol (Vitamin D3) 25 MCG TABLET 50 MCG PO (08:23)
[2021-10-30] MEDS: 0.9 % Sodium Chloride Flush 3 ML SYRINGE IVFLUSH (08:23)
[2021-10-30] MEDS: DULoxetine HCl 20 MG CAPSULE.DR PO (08:23)
--- NOTE | 2021-10-30 08:27 | PC.NURSE ---
PTT-HD remains critical, greater than 200. Heparin gtt remains held at this time. no bleeding noted or reported. Voided 200 of yellow urine. Bedside ultrasound of lower extr at this time. No insulin coverage needed POC 112. Breathing even/unlabored, sat 98% on room air. AM meds given
[2021-10-30 09:37] LABS: PTT Heparin Drip 59.1 SEC (53-77.9)
--- NOTE | 2021-10-30 10:09 | PC.NURSE ---
New PTT-HD 59.1, will restart per protocol at 10units/kg/hr
[2021-10-30 11:21] VITALS: BP 169/96; PULSE 66; RESP 15; TEMP 36.5; O2SAT 97
[2021-10-30 12:12] LABS: Glucose, Whole Blood 102 mg/dL (60-115)
[2021-10-30 16:47] LABS: PTT Heparin Drip 71.8 SEC (53-77.9)
--- NOTE | 2021-10-30 16:49 | PM.HEMONCCN ---
Subjective - Subjective Chief complaint: pulmonary embolism Patient: new to practice Consult date: 10/30/21 Primary Care Provider: Chloe Ridley MD HPI - Consult Narrative Reason for consult: pulmonary embolism left upper lobe Narrative: Timothy Quiroz is a 76 year old male who came to the ER with several days of chest pain and was found to have a PE in his IKE. He has a history about ten years ago of DVT in the left leg and a second clot and is on indefinite anticoagulation with warfarin. The INR on admission was subtherapeutic.He receives primary care at [facility] in [place] on [facility]. He may have had an IVC filter at one point but it is not mentioned in the report of an abdominal CT done at [facility]. Review of Systems - Constitutional Reports fatigue - ENT Reports other - Cardiovascular Reports chest pain - Respiratory Reports dyspnea - Gastrointestinal Reports other - Genitourinary Genitourinary: Reports difficulty urinating - Musculoskeletal Reports other [facility] Medical History: Medical History (Last Updated 10/30/21 @ 06:23 by Saroj Nagel MD) BPH (benign prostatic hyperplasia) Depression Diabetes History of colon cancer History of DVT (deep vein thrombosis) Hypertension Hypothyroidism Family History: Family History (Last Updated 10/30/21 @ 06:24 by Saroj Nagel MD) Mother Diabetes Other Hypertension Surgical History: Surgical History (Last Updated 10/30/21 @ 06:23 by Saroj Nagel MD) H/O thyroidectomy History of colon surgery S/P IVC filter Social History: Social History (Last Updated 10/30/21 @ 06:24 by Saroj Nagel MD) Tobacco History: Patient Tobacco Use Status: Never used Tobacco Substance Use History: Use of substances other than those prescribed or required for medical reasons: No Advance Directives: Advance Directives: No Advance Directives Information Provided: No Home Medications and Allergies Current Medications: Current Medications Acetaminophen (Acetaminophen 325 Mg Tablet) 650 mg PO Q6H PRN PRN Reason: Pain, Mild (Pain Scale 1-3) Dextrose (Dextrose 50 % 25 Gm/50 Ml Syringe) 25 gm IVPUSH Q15M PRN; Protocol PRN Reason: per Hypoglycemia Standing Ord. Docusate Sodium (Docusate Sodium 100 Mg Capsule) 100 mg PO DAILY PRN PRN Reason: Constipation Duloxetine HCl (Duloxetine Hcl 20 Mg Capsule.) 20 mg PO DAILY [facility] Last Admin: 10/30/21 08:23 Dose: 20 mg Documented by: Glucose (Glucose Gel 15 Gm Gel..Gram.) 15 gm PO Q15M PRN; Protocol PRN Reason: per Hypoglycemia Standing Ord. Heparin Sodium (Porcine) (Heparin Sodium,Porcine 5,000 Unit/Ml Vial) 4,900 unit 40 unit/kg (4900 unit) IVPUSH PROTOCOL BOLUS PRN; Protocol PRN Reason: 40 unit/kg - Heparin Protocol Heparin Sodium (Porcine) (Heparin Sodium,Porcine 5,000 Unit/Ml Vial) 9,800 unit 80 unit/kg (9800 unit) IVPUSH PROTOCOL BOLUS PRN; Protocol PRN Reason: 80 unit/kg - Heparin Protocol Heparin Sodium/Sodium Chloride () 25,000 unit in 250 mls @ 0 mls/hr IVCONT .Q0M [facility]; Protocol Last Titration: 10/30/21 10:25 Dose: 10 units/kg/hr, 12.85 mls/hr Documented by: Insulin Human Lispro (Insulin Lispro 100 Unit/Ml 3 Ml Vial) 0 unit SUBCUT QIDACHS [facility]; Protocol Last Admin: 10/30/21 12:41 Dose: Not Given Documented by: Levothyroxine Sodium (Levothyroxine Sodium 150 Mcg Tablet) 150 mcg PO DAILY@0600 [facility] Last Admin: 10/30/21 08:23 Dose: 150 mcg Documented by: Loratadine (Loratadine 10 Mg Tablet) 10 mg PO DAILY [facility] Last Admin: 10/30/21 08:23 Dose: 10 mg Documented by: Ondansetron HCl (Ondansetron Hcl 4 Mg/2 Ml Vial) 4 mg IVPUSH Q8H PRN PRN Reason: Nausea and Vomiting Sodium Chloride (0.9 % Sodium Chloride Flush 3 Ml Syringe) 3 ml IVFLUSH QSHIFT [facility] Last Admin: 10/30/21 08:23 Dose: 3 ml Documented by: Tamsulosin HCl (Tamsulosin Hcl 0.4 Mg Capsule) 0.4 mg PO BEDTIME [facility] Vitamin D (Cholecalciferol (Vitamin D3) 25 Mcg Tablet) 50 mcg PO DAILY [facility] Last Admin: 10/30/21 08:23 Dose: 50 mcg Documented by: Home Medications Medication Instructions Recorded Confirmed Type cholecalciferol (vitamin D3) 50 1 tab PO DAILY 10/29/21 10/29/21 History mcg (2,000 unit) tablet duloxetine 20 mg capsule,delayed 1 cap PO DAILY 10/29/21 10/29/21 History release glipizide 5 mg tablet 1 tab PO BID 10/29/21 10/29/21 History levothyroxine 150 mcg tablet 1 tab PO DAILY 10/29/21 10/29/21 History loratadine 10 mg tablet 1 tab PO DAILY 10/29/21 10/29/21 History metformin 500 mg tablet 2 tab PO BID 10/29/21 10/29/21 History tamsulosin 0.4 mg capsule 1 cap PO BEDTIME 10/29/21 10/29/21 History warfarin 5 mg tablet 5 mg PO DAILY 10/29/21 10/29/21 History Allergies Allergy/AdvReac Type Severity Reaction Status Date / Time No Known Allergies Allergy Verified 10/29/21 23:26 [No Known Allergies*] Physical Exam Vital signs: Vital Signs Temp 97.7 F 10/30/21 11:21 Pulse 66 10/30/21 11:21 Resp 15 10/30/21 11:21 BP 169/96 H 10/30/21 11:21 Pulse Ox 97 10/30/21 11:21 Intake & Output 10/29/21 10/30/21 10/30/21 18:59 06:59 18:59 Intake Total 131.235 / 131.235 0 / 0 Output Total 700 / 700 200 / 200 Balance -568.765 / -568.765 -200 / -200 Urine Output (Average ml/kg/hr) 0.47 0.14 Intake: Intake, IV Amount 131.235 / 131.235 0 / 0 Heparin Sodium,Porcine/1/2NS 25 131.235 / 131.235 0 / 0 ,000 unit In 250 ml @ Per Protocol IVCONT .Q0M [facility] Rx#: [id number] Output: Output, Urine Amount 700 / 700 200 / 200 Other: Weight 125.645 kg 123.1 kg Weight in Grams [id number] Weight 123.1 kg - Constitutional Present: no acute distress - Routine HEENT Exam Head: Present: atraumatic, normal inspection - Routine Neck Exam Present: supple, full ROM, JVD - Routine Chest/Breast/Axilla Exam Breast: Present: Normal Exam - Routine Respiratory Exam Present: decreased breath sounds - Routine Cardiovascular Exam Cardiovascular: Present: RRR, S1, S2 - Routine Abdominal Exam Present: diminished bowel sounds - Routine Extremities Exam Present: full ROM, nontender Hem/Onc Consult Result - Labs CBC & Chem 7: 10/30/21 05:49 10/30/21 05:49 Labs: Short CBC 10/29/21 10/30/21 Range/Units 17:29 05:49 WBC 4.1 L 4.0 L (4.8-10.8) X10*3/uL Hgb 13.6 L 14.0 (14.0-18.0) g/dl Hct 45.0 44.7 (42.0-52.0) % Plt Count 225 220 (160-400) X10*3/uL BMP 10/29/21 10/30/21 17:55 05:49 Sodium 142 139 Potassium 4.5 4.1 Chloride 109 H 107 Carbon Dioxide 24 24 BUN 11 9 Creatinine 1.09 1.06 Calcium 8.8 9.0 Liver Function 10/29/21 Range/Units 17:55 Total Bilirubin 0.5 (0.0-1.0) mg/dL Direct Bilirubin 0.2 (0.0-0.5) mg/dL AST 17 (5-37) U/L ALT 8 (0-40) U/L Alkaline Phosphatase 67 (39-117) U/L Albumin 3.8 (3.5-5.0) g/dL Urine 10/29/21 Range/Units 19:30 Urine Color YELLOW Urine Appearance CLEAR Urine pH 6.0 (5.0-8.0) Ur Specific Grant 1.025 (1.005-1.025) Urine Protein NEG (NEG-TRACE) MG/DL Urine Glucose (UA) NEG (NEG) MG/DL Assessment and Plan Patient Active problem list reviewed?: Yes (1) Pulmonary embolism Status: Acute Assessment and plan: We will need old records to see about the IVC filter and any thrombophilia evaluation. He should be on iv heparin for several days then either resume warfarin if he has been noncompliant or move to [facility] after discussion roxy ;the PCP. - Time Spent With Patient Time Spent with Patient (in minutes): 25
[2021-10-30 16:59] LABS: Glucose, Whole Blood 126 mg/dL (60-115)
--- NOTE | 2021-10-30 18:13 | PC.NURSE ---
Per protocol last PTT-HD, no rate change on heparin gtt pt remains at 10units/kg/hr
[2021-10-30] MEDS: Heparin Sodium,Porcine/1/2NS 25,000 UNIT/250 ML IV.SOLN 12.85 UNIT IVCONT (20:27)
[2021-10-30] MEDS: Tamsulosin HCL 0.4 MG CAPSULE PO (20:28)
[2021-10-30 21:02] LABS: Glucose, Whole Blood 101 mg/dL (60-115)
[2021-10-30 23:58] VITALS: BP 156/87; PULSE 66; RESP 16; TEMP 36.6; O2SAT 97
[2021-10-31] VITALS (7 sets, daily range): BP systolic 120–174; BP diastolic 78–96; PULSE 62–78; RESP 14–18; TEMP 36.2–36.8; O2SAT 96–98
[2021-10-31] MEDS: 0.9 % Sodium Chloride Flush 3 ML SYRINGE IVFLUSH ×3 (01:26→15:54)
[2021-10-31] MEDS: Levothyroxine Sodium 150 MCG TABLET PO (05:51)
[2021-10-31 07:38] LABS: Glucose, Whole Blood 115 mg/dL (60-115)
[2021-10-31 08:44] LABS: PTT Heparin Drip 61.8 SEC (53-77.9)
[2021-10-31] MEDS: Cholecalciferol (Vitamin D3) 25 MCG TABLET 50 MCG PO (10:03)
[2021-10-31] MEDS: DULoxetine HCl 20 MG CAPSULE.DR PO (10:04)
[2021-10-31] MEDS: Loratadine 10 MG TABLET PO (10:04)
[2021-10-31] MEDS: amLODIPine Besylate 2.5 MG TABLET PO (10:05)
--- NOTE | 2021-10-31 10:30 | CA_ITS ---
Transthoracic Echocardiogram Patient (Last, First, Middle): Timothy Layton, Gender: Male Date of : 1945 Age: 76 Procedure Date: 10/31/2021 Procedure Type: Transthoracic Echocardiogram Location: S3W Height: 180.34 cm Weight: 122.93 kg BSA: 2.40 m2 Heart Rate: bpm BP: 174 / 84 mmHg [place] Reamer: Referring MD: Saroj Nagel MD Symptoms: PE w R heart strain Study Quality: Fair ECG Rhythm: Sinus Conclusions: - The left ventricular systolic function is mildly decreased. The visually estimated ejection fraction is between 40-45%. - The basal inferior segment is hypokinetic. - The left atrium is moderately dilated. - There is mild dilatation of the sinuses of Valsalva measuring 4.20 cm and mild dilatation of the ascending aorta measuring 3.90 cm. Findings Left Ventricle Normal left ventricular cavity size. There is normal left ventricular wall thickness. The left ventricular systolic function is mildly decreased. The visually estimated ejection fraction is between 40-45%. There is evidence of regional wall motion abnormalities. Abnormal diastolic function is noted. Spectral Doppler is indicative of an impaired relaxation filling pattern. E/E prime ratio is between 8 and 15 consistent with indeterminate filling pressures. Wall Motion Rest Echo Findings The basal inferior segment is hypokinetic. Right Ventricle Normal right ventricular cavity size and systolic function. Atria The left atrium is moderately dilated. Aortic Valve Normal aortic valve structure and function. There is no aortic valve stenosis. There is trace (trivial) aortic valve regurgitation. Mitral Valve The mitral valve appears normal. There is trace mitral valve regurgitation. There is no mitral valve stenosis. Pulmonic Valve The pulmonic valve is likely normal. Tricuspid Valve Normal tricuspid valve structure and function. There is no tricuspid valve regurgitation. Tricuspid regurgitation envelope is inadequate for calculation of right ventricular systolic pressure. Normal right atrial pressure. Great Vessels There is mild dilatation of the sinuses of Valsalva measuring 4.20 cm and mild dilatation of the ascending aorta measuring 3.90 cm. Venous The inferior vena cava is normal in size and collapses greater than 50% with inspiration. Pericardium/Pleural There is no evidence of pericardial effusion. Prior Study Comparison No prior study available for comparison. Measurements 2D Linear Measurements IVSd: 1.00 0.6-0.9/0.6-1.0 cm LVIDd: 5.76 3.9-5.3/4.2-5.9 cm LVIDd Index: 2.40 2.4-3.2/2.2-3.1 cm/m2 LVIDs: 4.06 2.0-3.6 cm LVPWd: 1.13 0.7-1.1 cm Ao Root: 4.20 2.1-3.5 cm LA Diam: 4.30 2.7-3.8/3.0-4.0 cm LAIDs Index: 1.79 1.5-2.3 cm/m2 LV Mass: 311.29 67-162/88-224 g LV Mass Index: 129.71 43-95/49-115 g/m2 LVOT Diam: 2.40 3.0+(-)1.3 cm 2D Systolic Function EF 4C: 41.20 >55% EF 2C: 36.90 >55% EF BiP: 38.00 >55% Mitral Valve MV Pk E: 0.55 MV PK A: 0.91 MV Decel Time: 181.00 E/A: 0.60 E'Lateral: 4.13 E'Medial: 4.03 E/E' Med: 13.70 E/E' Lat: 13.40 PHT: 53.00 MVA PHT: 4.15 Decel Sutter: 3.05 Aortic Valve AoV Pk Jose Eduardo: 1.16 AoV Mn Jose Eduardo: 0.79 AoV VTI: 0.28 AoV Pk Grad: 5.00 Aov Mn Grad: 3.00 BARTOLO Cont.VTI: 3.25 LVOT LVOT Pk Jose Eduardo: 0.81 LVOT Mn Jose Eduardo: 0.62 LVOT VTI: 0.20 LVOT Pk Grad: 3.00 LVOT Mn Grad: 2.00 LVOT Diam: 2.40 LVOT Area: 4.52 Diastolic Function MV Pk E: 0.55 MV Pk A: 0.91 E/A: 0.60 E'Medial: 4.03 E/E' Med: 13.70 E' Laterial: 4.13 E/E' Lat: 13.40 Right Ventricle TAPSE (mm): 18.00 TVS' Jose Eduardo: 11.00 Tricuspid Valve TR Pk Jose Eduardo: 1.77 TR Pk Grad: 13.00 Great Vessels Aorta Ao Root-2D: 4.20 2.0-3.7 cm Sinus of Valsalva: 4.20 2.0-3.5 cm Ao Asc: 3.90 2.1-3.4 cm Pulmonary Valve PV Pk Jose Eduardo: 0.82 Peak PV Grad: 3.00 Updated in Other Vendor System with Status of Final Gurdeep Lamar MD electronically signed on 11/01/2021 4:21:00 PM with status of Final
--- NOTE | 2021-10-31 11:45 | MHC.CM.PN ---
PATIENT IS INDEPENDENT WITH HIS ADLS. HE HAS NOT BEEN DRIVING SINCE HIS KNEE SURGERY AND HAS A FRIEND THAT ASSISTS WITH TRANSPORT. HE DOES USE A CANE FOR AMBULATION ASSIST. NO VNA OR DIGITAL WATCH ASSEMBLER IN THE HOME. [facility] DID A HOME ASSESSMENT TWO WEEKS PRIOR TO THIS ADMISSION AND HE ANTICIPATES SOME SERVICES IN THE HOME SOON. PATIENT HAS BEEN COVID-19 VACCINATED AND A BOOSTER MODERNA 11/11/20 AND 12/08/20 PFIZER BOOSTER 09/02/21 INFORMATION UPLOADED INTO [employer] [facility] 10/31 IN CHART
[2021-10-31 11:48] LABS: Glucose, Whole Blood 109 mg/dL (60-115)
--- NOTE | 2021-10-31 12:10 | HO.PM.IMPN ---
Subjective Subjective Date of Service: 10/31/21 Interval History: left leg dvt?(chronic ) , new Pulm embolism Review of Systems Denies any chest pain or shortness of breath or abdominal pain or fever or chills Physical Exam Vital Signs: Vital Signs: Last Vital Signs Temp 97.4 F 10/31/21 11:40 Pulse 71 10/31/21 11:40 Resp 17 10/31/21 11:40 BP 137/94 H 10/31/21 11:40 Pulse Ox 97 10/31/21 11:40 BMI result Body Mass Index 37.8 Appearance: Alert.? Oriented X3.? not in distress.? Eyes: Pupils equal, round and reactive to light.? Sclera nonicteric.? ENT: Pharynx normal.? Moist mucous membranes. cvs: rrr, [id number] . res: clear to auscultation ,no rhonchii or wheezing abd: no rebound or guarding ,nt, bs present. ext pulses present , no cyanosis, has? ch venostasis type changes on lower ext left>right . neuro: axo3 , nonfocal. Objective Data Active Medications Acetaminophen (Acetaminophen 325 Mg Tablet) 650 mg PO Q6H PRN PRN Reason: Pain, Mild (Pain Scale 1-3) Amlodipine Besylate (Amlodipine Besylate 2.5 Mg Tablet) 2.5 mg PO DAILY ON LICENSE OF [facility]; Protocol Last Admin: 10/31/21 10:05 Dose: 2.5 mg Documented by: GIOVANNA Dextrose (Dextrose 50 % 25 Gm/50 Ml Syringe) 25 gm IVPUSH Q15M PRN; Protocol PRN Reason: per Hypoglycemia Standing Ord. Docusate Sodium (Docusate Sodium 100 Mg Capsule) 100 mg PO DAILY PRN PRN Reason: Constipation Duloxetine HCl (Duloxetine Hcl 20 Mg Capsule.) 20 mg PO DAILY ON LICENSE OF [facility] Last Admin: 10/31/21 10:04 Dose: 20 mg Documented by: GIOVANNA Glucose (Glucose Gel 15 Gm Gel..Gram.) 15 gm PO Q15M PRN; Protocol PRN Reason: per Hypoglycemia Standing Ord. Heparin Sodium (Porcine) (Heparin Sodium,Porcine 5,000 Unit/Ml Vial) 4,900 unit 40 unit/kg (4900 unit) IVPUSH PROTOCOL BOLUS PRN; Protocol PRN Reason: 40 unit/kg - Heparin Protocol Heparin Sodium (Porcine) (Heparin Sodium,Porcine 5,000 Unit/Ml Vial) 9,800 unit 80 unit/kg (9800 unit) IVPUSH PROTOCOL BOLUS PRN; Protocol PRN Reason: 80 unit/kg - Heparin Protocol Heparin Sodium/Sodium Chloride () 25,000 unit in 250 mls @ 0 mls/hr IVCONT .Q0M ON [facility]; Protocol Last Titration: 10/31/21 10:13 Dose: 7 units/kg/hr, 9 mls/hr Documented by: GIOVANNA Cosigned by: GERSON Insulin Human Lispro (Insulin Lispro 100 Unit/Ml 3 Ml Vial) 0 unit SUBCUT QIDACHS ON LICENSE OF [facility]; Protocol Last Admin: 10/31/21 12:06 Dose: Not Given Documented by: BOB Non-Admin Reason: No Insulin Coverage Levothyroxine Sodium (Levothyroxine Sodium 150 Mcg Tablet) 150 mcg PO DAILY@0600 ON [facility] Last Admin: 10/31/21 05:51 Dose: 150 mcg Documented by: PAYTON Loratadine (Loratadine 10 Mg Tablet) 10 mg PO DAILY ON LICENSE OF [facility] Last Admin: 10/31/21 10:04 Dose: 10 mg Documented by: GIOVANNA Ondansetron HCl (Ondansetron Hcl 4 Mg/2 Ml Vial) 4 mg IVPUSH Q8H PRN PRN Reason: Nausea and Vomiting Sodium Chloride (0.9 % Sodium Chloride Flush 3 Ml Syringe) 3 ml IVFLUSH QSHIFT ON LICENSE OF [facility] Last Admin: 10/31/21 10:03 Dose: 3 ml Documented by: GIOVANNA Tamsulosin HCl (Tamsulosin Hcl 0.4 Mg Capsule) 0.4 mg PO BEDTIME ON LICENSE OF [facility] Last Admin: 10/30/21 20:28 Dose: 0.4 mg Documented by: MCKAY Vitamin D (Cholecalciferol (Vitamin D3) 25 Mcg Tablet) 50 mcg PO DAILY ON LICENSE OF [facility] Last Admin: 10/31/21 10:03 Dose: 50 mcg Documented by: GIOVANNA Labs CBC & Chem 7: 10/30/21 05:49 10/30/21 05:49 Labs: Laboratory Results - last 24 hr 10/30/21 10/30/21 10/30/21 12:07 16:32 16:55 aPTT Heparin Protocol 71.8 D POC Glucose 102 126 H 10/30/21 10/30/21 10/31/21 20:58 22:33 07:29 aPTT Heparin Protocol 100.0 H D POC Glucose 101 115 10/31/21 10/31/21 08:22 11:11 aPTT Heparin Protocol 61.8 D POC Glucose 109 Assessment and Plan (1) Pulmonary embolism: Status: Acute (2) Ventricular dysfunction, right: Status: Acute Plan 76-year-old male with past medical history of DVT on Coumadin, with subtherapeutic INR presents to the hospital found to have PE 1. pulmonary embolus-? likely secondary to subtherapeutic INR sob? and chest pain improving - ? patient reports history of IVC filter as well as history of DVT x2 in the past dvt study repeated-?Intraluminal thrombus is present within the left distal femoral vein and popliteal vein, likely chronic.?There are however no prior studies available at the moment for comparison. Follow-up evaluation is recommended in 5-7 days to assess for any possible change. -? INR subtherapeutic trop and bnp seems fine. on? place on heparin drip there is evidence of right heart strain-added echocardiogram, BNP is negative d/w Hematology-Oncology dr rodarte -recomended for continue iv heparin and hematology follow up today 2. chest pain -? likely secondary to PE -? troponin negative x2, EKG shows no ST T-wave changes ?echocardiogram in the setting of PE to rule out right heart dysfunction 3.? diabetes: fs in100 -? low-dose sliding scale insulin, avoid coverage below 200 mg/dl -? hold oral antihyperglycemics -? diabetic diet 4. ? BPH -? continue tamsulosin 5.? hypothyroidism -? continue levothyroxine ?DVT prophylaxis: heparin Quality Stroke Does the patient have a stroke diagnosis?: No VTE Prior VTE?: No VTE Risk Level:: Medical - moderate - high VTE Device Contraindication: Treatment Not Indicated VTE Drug Contraindication: N/A - Med Ordered
--- NOTE | 2021-10-31 13:23 | P.PNHO_ITS ---
Medical Summary - Medical Summary Date of Service: 10/31/21 Chief complaint: None reported Interval History Interval history: Patient is feeling better. He denies any chest pain or shortness of breath. He is receiving heparin. He states that he has been on warfarin for more than 10 years. [facility] Medical History: Medical History (Last Updated 10/30/21 @ 06:23 by Saroj Nagel MD) BPH (benign prostatic hyperplasia) Depression Diabetes History of colon cancer History of DVT (deep vein thrombosis) Hypertension Hypothyroidism Family History: Family History (Last Updated 10/30/21 @ 06:24 by Saroj Nagel MD) Mother Diabetes Other Hypertension Surgical History: Surgical History (Last Updated 10/30/21 @ 06:23 by Saroj Nagel MD) H/O thyroidectomy History of colon surgery S/P IVC filter Social History: Social History (Last Updated 10/30/21 @ 06:24 by Saroj Nagel MD) Living Situation History: Household Members: Other Housing: Apartment Do you presently have visiting nurse or other home services: Yes Tobacco History: Patient Tobacco Use Status: Never used Tobacco Occupation Assessmet: service: No Current occupational status: retired Oncology Screenings - ECOG Performance Status ECOG Performance Status: 2 Home Medications and Allergies Current Medications: Current Medications Acetaminophen (Acetaminophen 325 Mg Tablet) 650 mg PO Q6H PRN PRN Reason: Pain, Mild (Pain Scale 1-3) Amlodipine Besylate (Amlodipine Besylate 2.5 Mg Tablet) 2.5 mg PO DAILY [facility]; Protocol Last Admin: 10/31/21 10:05 Dose: 2.5 mg Documented by: Dextrose (Dextrose 50 % 25 Gm/50 Ml Syringe) 25 gm IVPUSH Q15M PRN; Protocol PRN Reason: per Hypoglycemia Standing Ord. Docusate Sodium (Docusate Sodium 100 Mg Capsule) 100 mg PO DAILY PRN PRN Reason: Constipation Duloxetine HCl (Duloxetine Hcl 20 Mg Capsule.Dr) 20 mg PO DAILY [facility] Last Admin: 10/31/21 10:04 Dose: 20 mg Documented by: Glucose (Glucose Gel 15 Gm Gel..Gram.) 15 gm PO Q15M PRN; Protocol PRN Reason: per Hypoglycemia Standing Ord. Heparin Sodium (Porcine) (Heparin Sodium,Porcine 5,000 Unit/Ml Vial) 4,900 unit 40 unit/kg (4900 unit) IVPUSH PROTOCOL BOLUS PRN; Protocol PRN Reason: 40 unit/kg - Heparin Protocol Heparin Sodium (Porcine) (Heparin Sodium,Porcine 5,000 Unit/Ml Vial) 9,800 unit 80 unit/kg (9800 unit) IVPUSH PROTOCOL BOLUS PRN; Protocol PRN Reason: 80 unit/kg - Heparin Protocol Heparin Sodium/Sodium Chloride () 25,000 unit in 250 mls @ 0 mls/hr IVCONT .Q0M [facility]; Protocol Last Titration: 10/31/21 10:13 Dose: 7 units/kg/hr, 9 mls/hr Documented by: Insulin Human Lispro (Insulin Lispro 100 Unit/Ml 3 Ml Vial) 0 unit SUBCUT QIDACHS [facility]; Protocol Last Admin: 10/31/21 12:06 Dose: Not Given Documented by: Levothyroxine Sodium (Levothyroxine Sodium 150 Mcg Tablet) 150 mcg PO DAILY@0600 [facility] Last Admin: 10/31/21 05:51 Dose: 150 mcg Documented by: Loratadine (Loratadine 10 Mg Tablet) 10 mg PO DAILY [facility] Last Admin: 10/31/21 10:04 Dose: 10 mg Documented by: Ondansetron HCl (Ondansetron Hcl 4 Mg/2 Ml Vial) 4 mg IVPUSH Q8H PRN PRN Reason: Nausea and Vomiting Sodium Chloride (0.9 % Sodium Chloride Flush 3 Ml Syringe) 3 ml IVFLUSH QSHIFT [facility] Last Admin: 10/31/21 10:03 Dose: 3 ml Documented by: Tamsulosin HCl (Tamsulosin Hcl 0.4 Mg Capsule) 0.4 mg PO BEDTIME [facility] Last Admin: 10/30/21 20:28 Dose: 0.4 mg Documented by: Vitamin D (Cholecalciferol (Vitamin D3) 25 Mcg Tablet) 50 mcg PO DAILY [facility] Last Admin: 10/31/21 10:03 Dose: 50 mcg Documented by: Home Medications Medication Instructions Recorded Confirmed Type cholecalciferol (vitamin D3) 50 1 tab PO DAILY 10/29/21 10/29/21 History mcg (2,000 unit) tablet duloxetine 20 mg capsule,delayed 1 cap PO DAILY 10/29/21 10/29/21 History release glipizide 5 mg tablet 1 tab PO BID 10/29/21 10/29/21 History levothyroxine 150 mcg tablet 1 tab PO DAILY 10/29/21 10/29/21 History loratadine 10 mg tablet 1 tab PO DAILY 10/29/21 10/29/21 History metformin 500 mg tablet 2 tab PO BID 10/29/21 10/29/21 History tamsulosin 0.4 mg capsule 1 cap PO BEDTIME 10/29/21 10/29/21 History warfarin 5 mg tablet 5 mg PO DAILY 10/29/21 10/29/21 History Allergies Allergy/AdvReac Type Severity Reaction Status Date / Time No Known Allergies Allergy Verified 10/29/21 23:26 [No Known Allergies*] Exam Vital signs: Vital Signs Temp 97.4 F 10/31/21 11:40 Pulse 71 10/31/21 11:40 Resp 17 10/31/21 11:40 BP 137/94 H 10/31/21 11:40 Pulse Ox 97 10/31/21 11:40 Intake & Output 10/30/21 10/31/21 10/31/21 18:59 06:59 18:59 Intake Total 84.596 / 774.234 689.638 / 774.234 75.75 / 75.75 Output Total 200 / 1000 800 / 1000 Balance -115.404 / -225.766 -110.362 / -225.766 75.75 / 75.75 Urine Output (Average ml/kg/hr) 0.14 0.54 0.54 Intake: Intake, Oral Amount 360 / 360 Intake, Oral Supplement Amount 240 / 240 Intake, IV Amount 84.596 / 174.234 89.638 / 174.234 75.75 / 75.75 Heparin Sodium,Porcine/1/2NS 25 84.596 / 174.234 89.638 / 174.234 75.75 / 75.75 ,000 unit In 250 ml @ Per Protocol IVCONT .Q0M [facility] Rx#: [id number] Output: Output, Urine Amount 200 / 1000 800 / 1000 Other: Urine Urinal Urine Color Yellow Last Bowel Movement 10/29/21 Weight 123.1 kg BMI result Body Mass Index 37.8 - Constitutional Present: no acute distress - Routine HEENT Exam Head: Present: atraumatic, normal inspection - Routine Respiratory Exam Present: decreased breath sounds - Routine Cardiovascular Exam Cardiovascular: Present: RRR, S1, S2 - Routine Abdominal Exam Present: diminished bowel sounds - Routine Extremities Exam Present: full ROM, nontender Data - Labs CBC & Chem 7: 10/30/21 05:49 10/30/21 05:49 Labs: 10/29/21 ECG 12 lead EKG Stat XR chest 1V Stat 10/29/21 14:25 EKG Documentation DIRECTED 10/29/21 17:29 B Type Natriuretic Peptide Stat COVID-19 ID NOW ([employer]) Stat Complete Blood Count Auto Diff Stat D Dimer High Sensitivity Stat Partial Thromboplastin Time Stat Prothrombin Time INR Stat Troponin-I High Sensitivity Stat 10/29/21 17:53 Glucose, Whole Blood Routine 10/29/21 17:55 Basic Metabolic Panel Stat Lipase Stat Liver Panel Stat Magnesium Stat 10/29/21 18:39 CT angio chest PE protocol Stat 10/29/21 19:30 UA CC w/rflx Micro + Cult Stat 10/29/21 19:52 iohexoL 350 MG/ML [Omnipaque 350 MG/ML] 65 ml IV ONCE ONE 10/29/21 22:04 Troponin-I High Sensitivity Stat 10/30/21 05:49 Basic Metabolic Panel DAILY@0600 Complete Blood Count Auto Diff DAILY@0600 PTT Heparin Drip Stat 10/30/21 07:13 PTT Heparin Drip Stat 10/30/21 07:19 Glucose, Whole Blood Routine 10/30/21 08:00 US venous duplex LE BI Urgent 10/30/21 09:13 PTT Heparin Drip Stat 10/30/21 12:07 Glucose, Whole Blood Routine 10/30/21 16:32 PTT Heparin Drip Stat 10/30/21 16:55 Glucose, Whole Blood Routine 10/30/21 20:58 Glucose, Whole Blood Routine 10/30/21 22:33 PTT Heparin Drip Stat 10/31/21 07:29 Glucose, Whole Blood Routine 10/31/21 08:22 PTT Heparin Drip Stat 10/31/21 11:11 Glucose, Whole Blood Routine Laboratory Last Values WBC 4.0 X10*3/uL (4.8-10.8) L 10/30/21 05:49 RBC 5.26 X10*6/uL (4.60-5.80) 10/30/21 05:49 Hgb 14.0 g/dl (14.0-18.0) 10/30/21 05:49 Hct 44.7 % (42.0-52.0) 10/30/21 05:49 MCV 85.0 fL (80.0-98.0) 10/30/21 05:49 MCH 26.6 pg (27.0-33.0) L 10/30/21 05:49 MCHC 31.3 g/dl (31.0-36.0) 10/30/21 05:49 RDW 13.9 % (11.0-16.0) 10/30/21 05:49 Plt Count 220 X10*3/uL (160-400) 10/30/21 05:49 MPV 10.0 fL (9.4-12.4) 10/30/21 05:49 Immature Gran % (Auto) 0.2 % (0.0-0.4) 10/30/21 05:49 Neut % (Auto) 35.8 % (45-73) L 10/30/21 05:49 Lymph % (Auto) 50.4 % (20-40) H 10/30/21 05:49 [place] % (Auto) 6.9 % (2-11) 10/30/21 05:49 Eos % (Auto) 6.0 % (0-4) H 10/30/21 05:49 Baso % (Auto) 0.7 % (0-2) 10/30/21 05:49 Lymph # (Auto) 2.0 X10*3/uL (1.2-4.9) 10/30/21 05:49 [place] # (Auto) 0.3 X10*3/uL (0.1-1.2) 10/30/21 05:49 Eos # (Auto) 0.2 X10*3/uL (0.0-0.4) 10/30/21 05:49 Baso # (Auto) 0.0 X10*3/uL (0.0-0.2) 10/30/21 05:49 Abs Immat Gran (auto) 0.01 X10*3/uL (0.00-0.03) 10/30/21 05:49 Absolute Neuts (auto) 1.4 x10*3/uL (2.0-8.3) L 10/30/21 05:49 Absolute Nucleated RBC 0.000 X10*3/uL (0.0-0.012) 10/30/21 05:49 Nucleated RBC % (auto) 0.0 /100WBC (0.0-0.2) 10/30/21 05:49 PT 17.7 SEC (9.9-13.0) H 10/29/21 17:29 INR 1.5 (0.9-1.1) H 10/29/21 17:29 APTT 32.9 SEC (24.1-38.0) 10/29/21 17:29 aPTT Heparin Protocol 61.8 SEC (53-77.9) D 10/31/21 08:22 D-Dimer High Sensitivty 756 NG/ML 10/29/21 17:29 Sodium 139 mmol/L (135-145) 10/30/21 05:49 Potassium 4.1 mmol/L (3.3-5.1) 10/30/21 05:49 Chloride 107 mmol/L (96-108) 10/30/21 05:49 Carbon Dioxide 24 mmol/L (22-29) 10/30/21 05:49 Anion Gap 12 (12-20) 10/30/21 05:49 BUN 9 mg/dL (9-16) 10/30/21 05:49 Creatinine 1.06 mg/dL (0.5-1.4) 10/30/21 05:49 Estim Creat Clear Calc 81.6 10/30/21 05:49 Estimated GFR > 60 10/30/21 05:49 POC Glucose 109 mg/dL (60-115) 10/31/21 11:11 Random Glucose 113 mg/dL (60-115) 10/30/21 05:49 Calcium 9.0 mg/dL (8.4-10.2) 10/30/21 05:49 Magnesium 2.1 mg/dL (1.6-2.6) 10/29/21 17:55 Total Bilirubin 0.5 mg/dL (0.0-1.0) 10/29/21 17:55 Direct Bilirubin 0.2 mg/dL (0.0-0.5) 10/29/21 17:55 AST 17 U/L (5-37) 10/29/21 17:55 ALT 8 U/L (0-40) 10/29/21 17:55 Alkaline Phosphatase 67 U/L (39-117) 10/29/21 17:55 Troponin I High Sens 3.6 ng/L (<3.5-35.0) 10/29/21 22:04 B-Natriuretic Peptide 72 pg/mL (<100) 10/29/21 17:29 Total Protein 6.6 g/dL (6.5-8.0) 10/29/21 17:55 Albumin 3.8 g/dL (3.5-5.0) 10/29/21 17:55 Lipase 25 U/L (8-78) 10/29/21 17:55 Urine Color YELLOW 10/29/21 19:30 Urine Appearance CLEAR 10/29/21 19:30 Urine pH 6.0 (5.0-8.0) 10/29/21 19:30 Ur Specific [place] 1.025 (1.005-1.025) 10/29/21 19:30 Urine Protein NEG MG/DL (NEG-TRACE) 10/29/21 19:30 Urine Glucose (UA) NEG MG/DL (NEG) 10/29/21 19:30 Urine Ketones NEG MG/DL (NEG) 10/29/21 19:30 Urine Blood NEG (NEG) 10/29/21 19:30 Urine Nitrite NEG (NEG) 10/29/21 19:30 Ur Leukocyte Esterase NEG (NEG) 10/29/21 19:30 COVID-19 (RUMA) Negative (Negative) 10/29/21 17:29 COVID-19 Clin Com See Note 10/29/21 17:29 - Imaging Radiologist's impression: ITS Impressions Chest X-Ray 10/29/21 14:45 IMPRESSION: Unremarkable examination. Chest CTA 10/29/21 20:30 IMPRESSION: * Small embolism in the branch to the anterior segment of the left upper lobe. * Mild coronary artery atherosclerosis. Trace pericardial effusion is present. * The finding of contrast reflux into the IVC could be a manifestation of mild right heart strain. The critical test result was discussed with Neelam Servin NP, at 9:27 PM on 10/29/2021 and it was ascertained that the content and the importance of the findings was understood at the time of the direct communication. Venous Duplex 10/30/21 08:32 IMPRESSION: 1. No DVT demonstrated in the right lower extremity, unchanged since 08/12/2019. 2. Intraluminal thrombus is present within the left distal femoral vein and popliteal vein, likely chronic. There are however no prior studies available at the moment for comparison. Follow-up evaluation is recommended in 5-7 days to assess for any possible change. This critical result was discussed with Dr. Mason at 9:16 AM on 10/30/2021 and it was ascertained that the content and urgency of the report was understood at the time of direct communication. Assessment and Plan Patient Active problem list reviewed?: Yes (1) Pulmonary embolism Status: Acute Assessment and plan: 1. This is a pleasant 76-year-old male admitted with pulmonary embolism and left chronic DVT. Patient states that he has been diagnosed with recurrent left lower extremity DVT and has been on warfarin for more than [address] angiogram showed small pulmonary embolism in anterior segment of left upper lobe. His INR was 1.5, subtherapeutic when he presented with symptoms of chest pain and shortness of breath /PE. At this time I recommend switching him to DOAC's, either Xarelto or apixaban as long-term monitoring of INR for warfarin appears to be a problem for him. There is no role of thrombophilia testing, he needs long-term /indefinite anticoagulation. Thank you. - Time Spent With Patient Time Spent with Patient (in minutes): 10
[2021-10-31 14:44] LABS: PTT Heparin Drip 53.3 SEC (53-77.9)
--- NOTE | 2021-10-31 15:25 | PC.NURSE ---
Addendum entered by Ana Alvarez RN 10/31/21 15:57: Heparin drip is infusing at 7units/kg/hr at a rate 8.61 ml/hr Addendum entered by Ana Alvarez RN 10/31/21 15:53: Nursing complaint evaluation supervisor Natasha was notified ,we were able to determine that wt entered by Pharmacy is different than patient wt,pharmacy will re enter order,primary RN notified Original Note: P heparin drip infusing at 7 units/kg/hr at a rate 8.61 ml /hr ,MAR states drip is infusing at 9 ml/hr,system automaticaly states rate was decreased when RN entered the correct rate even there was no changes I pharmacist notified to correct MAR,will check PTT-HD in 6 hours per pharmacist advise E will monitor
[2021-10-31 16:28] LABS: Glucose, Whole Blood 108 mg/dL (60-115)
[2021-10-31 20:19] LABS: Glucose, Whole Blood 178 mg/dL (60-115)
[2021-10-31] MEDS: Apixaban 5 MG TABLET 10 MG PO (21:00)
[2021-10-31] MEDS: Tamsulosin HCL 0.4 MG CAPSULE PO (21:00)
[2021-11-01] MEDS: 0.9 % Sodium Chloride Flush 3 ML SYRINGE IVFLUSH ×3 (00:22→16:28)
[2021-11-01 03:35] VITALS: BP 115/70; PULSE 68; RESP 16; TEMP 36.3; O2SAT 96
[2021-11-01] MEDS: Levothyroxine Sodium 150 MCG TABLET PO (05:51)
[2021-11-01 07:44] LABS: Glucose, Whole Blood 135 mg/dL (60-115)
[2021-11-01 07:55] VITALS: BP 124/84; PULSE 65; RESP 14; TEMP 36; O2SAT 95
[2021-11-01] MEDS: Apixaban 5 MG TABLET 10 MG PO ×2 (08:40→20:31)
[2021-11-01] MEDS: DULoxetine HCl 20 MG CAPSULE.DR PO (08:40)
[2021-11-01] MEDS: amLODIPine Besylate 2.5 MG TABLET PO (08:41)
[2021-11-01] MEDS: Cholecalciferol (Vitamin D3) 25 MCG TABLET 50 MCG PO (08:42)
[2021-11-01] MEDS: Loratadine 10 MG TABLET PO (08:56)
[2021-11-01 10:48] LABS: Glucose, Whole Blood 171 mg/dL (60-115)
[2021-11-01 11:09] LABS: Glucose, Whole Blood 182 mg/dL (60-115)
[2021-11-01 11:45] VITALS: BP 117/84; PULSE 75; RESP 18; TEMP 36; O2SAT 99
--- NOTE | 2021-11-01 13:05 | PM.DS ---
DS: Providers Provider Date of Service: 11/01/21 Date of admission: 10/29/21 23:24 Primary care physician: Chloe Ridley MD Consults: 10/29/21 23:22 Consult to Hematology / Oncology Routine Consulting Provider: Li Bedolla Reason for consultation: PE ( pt on coumadin for hx of DVT) Has provider been notified: No DS: Diagnosis Discharge Diagnosis (1) Pulmonary embolism: Status: Acute DS: Summary Hospital Course Hospital Course: 76-year-old male with past medical history of hypertension, DVT, depression anxiety,? diabetes, hypothyroidism, BPH, presents to the hospital with complaints of left-sided chest pain.? Patient reports that his pain has been going on for about 3-4 weeks, intermittent, radiating to both arms, lasting few minutes, occurring spontaneous and resolving spontaneously.? Worse with deep inspiration.? ? He describes the pain as sharp pain, 6/10. ? Patient reports some cough, as well as some sputum production, no abdominal pain nausea or vomiting, no diarrhea constipation, no urinary symptoms and no lower extremity edema.? On arrival to the ED patient hemodynamically stable with no significant abnormal vitals except for a slightly elevated blood pressure Labs are significant for WBC count of 4.0, PT of 17.7, INR of 1.5,? BNP of 72, troponin of 3.6, UA negative, Chest CT angiogram shows small embolism in the branch to the anterior segment of the left upper lobe.? Contrast reflux into the IVC could be manage station of mild right heart failure ?? Per patient he has had DVT in his left lower extremity twice in the past and has had placement of a filter in his left femoral vein and takes Coumadin.? Patient reports compliance with Coumadin. Hospital course: Patient came to the hospital because of shortness of breath-found to have pulmonary embolism, started on IV heparin and seen by hematology: Patient's symptom medically improved significantly. Currently improved chest pain denies any new symptoms. Will switch the patient to Eliquis since patient was subtherapeutic on warfarin and having pulmonary embolism as above. Further management out patiently as per PCP. Time Spent with Patient Time attestation: Total time spent providing and/or coordinating discharge services: Discharge coordination time: Greater than 30 minutes Quality: Stroke Does the patient have a stroke diagnosis?: No Physical Exam Vital Signs: Vital Signs: Last Vital Signs Temp 96.8 F 11/01/21 11:45 Pulse 75 11/01/21 11:45 Resp 18 11/01/21 11:45 BP 117/84 11/01/21 11:45 Pulse Ox 99 11/01/21 11:45 BMI result Body Mass Index 37.8 DS: Data Data Completed and Pending Labs on day of discharge: Laboratory Results - last 24 hr 10/31/21 10/31/21 10/31/21 14:26 16:13 20:07 aPTT Heparin Protocol 53.3 POC Glucose 108 178 H 10/31/21 11/01/21 11/01/21 20:08 07:40 10:44 aPTT Heparin Protocol POC Glucose 182 H 135 H 171 H Discharge Plan Discharge Patient Disposition: Home, Self-Care Discharge Diagnosis: pulm embolism and possble ch leg dvt Referrals: Chloe Ridley MD [Primary Care Provider] - 1 Week Discharge Medications: New Eliquis 5 mg Tablet 10 mg PO BID Qty: 51 0RF Rx Instructions: take 2 tabs eliquis by mouth twice daily until 11/06/21, then switch to 1 tab eliquis by mouth twice daily on 11/07/21. given 1 month supply -further supply as per pcp. Continued metformin 500 mg tablet 2 tab PO BID 0RF tamsulosin 0.4 mg capsule 1 cap PO BEDTIME 0RF levothyroxine 150 mcg tablet 1 tab PO DAILY 0RF loratadine 10 mg tablet 1 tab PO DAILY 0RF glipizide 5 mg tablet 1 tab PO BID 0RF duloxetine 20 mg capsule,delayed release(DR/EC) 1 cap PO DAILY 0RF cholecalciferol (vitamin D3) 50 mcg (2,000 unit) tablet 1 tab PO DAILY 0RF Discontinued warfarin 5 mg tablet 5 mg PO DAILY 0RF Diet: advance to usual diet Activity on Discharge: As tolerated Stand Alone Forms: Patient Portal Discharge page Care Plan Goals: Patient came to the hospital because of shortness of breath-found to have pulmonary embolism, started on IV heparin and seen by hematology: Patient's symptom medically improved significantly. Currently improved chest pain denies any new symptoms. Will switch the patient to Eliquis since patient was subtherapeutic on warfarin and having pulmonary embolism as above. Further management out patiently as per PCP. Health Concerns: As above. Plan of Treatment: As above. Assessment: As above.
--- NOTE | 2021-11-01 13:07 | HO.PM.IMPN ---
Subjective Subjective Date of Service: 11/01/21 Interval History: pulm embolism ,? right heart starin Review of Systems Patient shortness of breath seems improved significantly, denies any chest pain or abdominal pain or fever or chills Physical Exam Vital Signs: Vital Signs: Last Vital Signs Temp 96.8 F 11/01/21 11:45 Pulse 75 11/01/21 11:45 Resp 18 11/01/21 11:45 BP 117/84 11/01/21 11:45 Pulse Ox 99 11/01/21 11:45 BMI result Body Mass Index 37.8 ?Appearance: Alert.? Oriented X3.? not in distress.? Eyes: Pupils equal, round and reactive to light.? Sclera nonicteric.? ENT: Pharynx normal.? Moist mucous membranes. cvs: rrr, [id number] . res: clear to auscultation ,no rhonchii or wheezing abd: no rebound or guarding ,nt, bs present. ext pulses present , no cyanosis, has? ch venostasis type changes on lower ext left>right . neuro: axo3 , nonfocal. Objective Data Active Medications Acetaminophen (Acetaminophen 325 Mg Tablet) 650 mg PO Q6H PRN PRN Reason: Pain, Mild (Pain Scale 1-3) Amlodipine Besylate (Amlodipine Besylate 2.5 Mg Tablet) 2.5 mg PO DAILY [facility]; Protocol Last Admin: 11/01/21 08:41 Dose: 2.5 mg Documented by: BIRGIT Comments: 147/83 Apixaban (Apixaban 5 Mg Tablet) 10 mg PO BID [facility] Stop: 11/07/21 09:01 Last Admin: 11/01/21 08:40 Dose: 10 mg Documented by: BIRGIT Dextrose (Dextrose 50 % 25 Gm/50 Ml Syringe) 25 gm IVPUSH Q15M PRN; Protocol PRN Reason: per Hypoglycemia Standing Ord. Docusate Sodium (Docusate Sodium 100 Mg Capsule) 100 mg PO DAILY PRN PRN Reason: Constipation Duloxetine HCl (Duloxetine Hcl 20 Mg Capsule.Dr) 20 mg PO DAILY [facility] Last Admin: 11/01/21 08:40 Dose: 20 mg Documented by: BIRGIT Glucose (Glucose Gel 15 Gm Gel..Gram.) 15 gm PO Q15M PRN; Protocol PRN Reason: per Hypoglycemia Standing Ord. Insulin Human Lispro (Insulin Lispro 100 Unit/Ml 3 Ml Vial) 0 unit SUBCUT QIDACHS [facility]; Protocol Last Admin: 11/01/21 11:25 Dose: Not Given Documented by: BIRGIT Non-Admin Reason: No Insulin Coverage Comments: BS 171, no coverage needed Levothyroxine Sodium (Levothyroxine Sodium 150 Mcg Tablet) 150 mcg PO DAILY@0600 [facility] Last Admin: 11/01/21 05:51 Dose: 150 mcg Documented by: KARINE Loratadine (Loratadine 10 Mg Tablet) 10 mg PO DAILY [facility] Last Admin: 11/01/21 08:56 Dose: 10 mg Documented by: BIRGIT Ondansetron HCl (Ondansetron Hcl 4 Mg/2 Ml Vial) 4 mg IVPUSH Q8H PRN PRN Reason: Nausea and Vomiting Sodium Chloride (0.9 % Sodium Chloride Flush 3 Ml Syringe) 3 ml IVFLUSH QSHIFT [facility] Last Admin: 11/01/21 08:40 Dose: 3 ml Documented by: BIRGIT Tamsulosin HCl (Tamsulosin Hcl 0.4 Mg Capsule) 0.4 mg PO BEDTIME [facility] Last Admin: 10/31/21 21:00 Dose: 0.4 mg Documented by: SANKET Vitamin D (Cholecalciferol (Vitamin D3) 25 Mcg Tablet) 50 mcg PO DAILY [facility] Last Admin: 11/01/21 08:42 Dose: 50 mcg Documented by: BIRGIT Labs CBC & Chem 7: 10/30/21 05:49 10/30/21 05:49 Labs: Laboratory Results - last 24 hr 10/31/21 10/31/21 10/31/21 14:26 16:13 20:07 aPTT Heparin Protocol 53.3 POC Glucose 108 178 H 10/31/21 11/01/21 11/01/21 20:08 07:40 10:44 aPTT Heparin Protocol POC Glucose 182 H 135 H 171 H Assessment and Plan (1) Pulmonary embolism: Status: Acute (2) Ventricular dysfunction, right: Status: Acute Plan 76-year-old male with past medical history of DVT on Coumadin, with subtherapeutic INR presents to the hospital found to have PE 1. pulmonary embolus-? likely secondary to subtherapeutic INR sob? and chest pain improving - ? patient reports history of IVC filter as well as history of DVT x2 in the past dvt study repeated-?Intraluminal thrombus is present within the left distal femoral vein and popliteal vein, likely chronic.?There are however no prior studies available at the moment for comparison. Follow-up evaluation is recommended in 5-7 days to assess for any possible change. -? INR subtherapeutic trop and bnp seems fine. on? place on heparin drip there is evidence of right heart strain-added echocardiogram, BNP is negative d/w Hematology-Oncology dr rodarte -switched to po eliquis his echo prelim seems abnormal -added acrdiology toni , d/w the patient . 2. chest pain -? likely secondary to PE -? troponin negative x2, EKG shows no ST T-wave changes ?echocardiogram in the setting of PE to rule out right heart dysfunction 3.? diabetes: fs [id number]'s -? low-dose sliding scale insulin, avoid coverage below 200 mg/dl -? hold oral antihyperglycemics -? diabetic diet 4. ? BPH -? continue tamsulosin 5.? hypothyroidism -? continue levothyroxine ?DVT prophylaxis: heparin Quality Stroke Does the patient have a stroke diagnosis?: No VTE Prior VTE?: No VTE Risk Level:: Medical - moderate - high VTE Device Contraindication: Treatment Not Indicated VTE Drug Contraindication: N/A - Med Ordered
[2021-11-01 15:21] VITALS: BP 135/76; PULSE 69; RESP 18; TEMP 36.3; O2SAT 96
[2021-11-01 16:16] LABS: Glucose, Whole Blood 140 mg/dL (60-115)
[2021-11-01 19:23] VITALS: BP 156/92; PULSE 76; RESP 16; TEMP 36.3; O2SAT 97
[2021-11-01 19:59] LABS: Glucose, Whole Blood 145 mg/dL (60-115)
[2021-11-01] MEDS: Tamsulosin HCL 0.4 MG CAPSULE PO (20:31)
[2021-11-01] MEDS: Aspirin Enteric Coated 81 MG TABLET.DR PO (20:31)
[2021-11-01 23:31] VITALS: BP 158/86; PULSE 61; RESP 16; TEMP 36.1; O2SAT 97
--- NOTE | 2021-11-02 | CA_ITS ---
Acquisition Time: 2021-11-03 08:25:23 Total Exercise Time: 00:04:00 Test Indications: Chest Pain Medications: SEE EMAR Protocol: DORINDA Max HR: 144 BPM 98% of Pred: 146 BPM Max BP: 190/088 mmHG Max Work Load: 4.6 METS Exercise stress test with exercise 4 min of Dorinda stage 1 ( stage held due to knee discomfort), with mild sob, no chest discomfort, with isolated PACs, PVCs, short runs of atrial tachycardia, 2-5 beats, without EKG changes meeting criteria for ischemia at his acheived workload.Test reviewed with Dr Lamar. Referred By: Gurdeep Lamar Overread By: KARTHIKEYAN REDDY
[2021-11-02] MEDS: 0.9 % Sodium Chloride Flush 3 ML SYRINGE IVFLUSH ×3 (00:38→15:56)
[2021-11-02 03:58] VITALS: BP 131/70; PULSE 66; RESP 16; TEMP 36.2; O2SAT 97
[2021-11-02] MEDS: Levothyroxine Sodium 150 MCG TABLET PO (05:48)
[2021-11-02 06:08] LABS: Hematocrit 45.5 % (42.0-52.0)
[2021-11-02 07:33] LABS: Glucose, Whole Blood 120 mg/dL (60-115)
[2021-11-02 07:45] VITALS: BP 166/99; PULSE 70; RESP 18; TEMP 36.4; O2SAT 98
[2021-11-02] MEDS: DULoxetine HCl 20 MG CAPSULE.DR PO (09:13)
[2021-11-02] MEDS: Loratadine 10 MG TABLET PO (09:14)
[2021-11-02] MEDS: Apixaban 5 MG TABLET 10 MG PO ×2 (09:14→20:05)
[2021-11-02] MEDS: amLODIPine Besylate 2.5 MG TABLET PO (09:14)
[2021-11-02] MEDS: Cholecalciferol (Vitamin D3) 25 MCG TABLET 50 MCG PO (09:27)
[2021-11-02 10:50] LABS: Glucose, Whole Blood 163 mg/dL (60-115)
--- NOTE | 2021-11-02 11:17 | P.CONCA_ITS ---
History of Present Illness History of Present Illness Date of Service: 11/02/21 Requesting physician: Palmer Dixon Chief complaint: PE, chest pain Narrative: pleasant 76 year gentleman with background history of hypertension, diabetes and deep vein thrombosis. He also has IVC filter. He is presenting with chest pain ongoing for 2 months. He has exertional chest tightness and shortness of breath. With these symptoms he presented to [facility] and his workup has shown pulmonary embolism. On the CT scan he was also noted to have some concern for RV strain and echocardiogram was done. Echocardiography is showing ejection fraction of 40 45% with inferior wall motion abnormality. He is denying any street of cardiovascular issues and no coronary disease in the past. He has a small PE on the CT scan and his symptoms are more suggestive for coronary disease then pulmonary embolism for the presentation. Blood pressure is elevated. He was on Coumadin and has been changed to Eliquis. [facility] Past Medical History Medical History (Updated 11/02/21 @ 13:41 by Gurdeep Lamar MD) BPH (benign prostatic hyperplasia) Depression Diabetes History of colon cancer History of DVT (deep vein thrombosis) Hypertension Hypothyroidism Family History Family History (Updated 10/30/21 @ 06:24 by Saroj Nagel MD) Mother Diabetes Other Hypertension Surgical History Surgical History (Updated 10/30/21 @ 16:59 by Wilmar Murrell MD) H/O thyroidectomy History of colon surgery S/P IVC filter Social History Social History (Updated 10/30/21 @ 06:24 by Saroj Nagel MD) Household Members: Other Housing: Apartment Do you presently have visiting nurse or other home services: Yes Alcohol intake: current Alcohol intake frequency: does not drink Patient Tobacco Use Status: Never used Tobacco service: No Current occupational status: retired Meds Allergies Allergy/AdvReac Type Severity Reaction Status Date / Time No Known Allergies Allergy Verified 10/29/21 23:26 [No Known Allergies*] Active Medications: Current Medications Acetaminophen (Acetaminophen 325 Mg Tablet) 650 mg PO Q6H PRN PRN Reason: Pain, Mild (Pain Scale 1-3) Amlodipine Besylate (Amlodipine Besylate 2.5 Mg Tablet) 2.5 mg PO DAILY [facility]; Protocol Last Admin: 11/02/21 09:14 Dose: 2.5 mg Documented by: Apixaban (Apixaban 5 Mg Tablet) 10 mg PO BID [facility] Stop: 11/07/21 09:01 Last Admin: 11/02/21 09:14 Dose: 10 mg Documented by: Aspirin (Aspirin Enteric Coated 81 Mg Tablet.) 81 mg PO BEDTIME [facility] Last Admin: 11/01/21 20:31 Dose: 81 mg Documented by: Dextrose (Dextrose 50 % 25 Gm/50 Ml Syringe) 25 gm IVPUSH Q15M PRN; Protocol PRN Reason: per Hypoglycemia Standing Ord. Docusate Sodium (Docusate Sodium 100 Mg Capsule) 100 mg PO DAILY PRN PRN Reason: Constipation Duloxetine HCl (Duloxetine Hcl 20 Mg Capsule.) 20 mg PO DAILY [facility] Last Admin: 11/02/21 09:13 Dose: 20 mg Documented by: Glucose (Glucose Gel 15 Gm Gel..Gram.) 15 gm PO Q15M PRN; Protocol PRN Reason: per Hypoglycemia Standing Ord. Insulin Human Lispro (Insulin Lispro 100 Unit/Ml 3 Ml Vial) 0 unit SUBCUT QIDACHS [facility]; Protocol Last Admin: 11/02/21 10:57 Dose: Not Given Documented by: Levothyroxine Sodium (Levothyroxine Sodium 150 Mcg Tablet) 150 mcg PO DAILY@0600 [facility] Last Admin: 11/02/21 05:48 Dose: 150 mcg Documented by: Loratadine (Loratadine 10 Mg Tablet) 10 mg PO DAILY [facility] Last Admin: 11/02/21 09:14 Dose: 10 mg Documented by: Ondansetron HCl (Ondansetron Hcl 4 Mg/2 Ml Vial) 4 mg IVPUSH Q8H PRN PRN Reason: Nausea and Vomiting Sodium Chloride (0.9 % Sodium Chloride Flush 3 Ml Syringe) 3 ml IVFLUSH QSHIFT [facility] Last Admin: 11/02/21 09:19 Dose: 3 ml Documented by: Tamsulosin HCl (Tamsulosin Hcl 0.4 Mg Capsule) 0.4 mg PO BEDTIME [facility] Last Admin: 11/01/21 20:31 Dose: 0.4 mg Documented by: Vitamin D (Cholecalciferol (Vitamin D3) 25 Mcg Tablet) 50 mcg PO DAILY [facility] Last Admin: 11/02/21 09:27 Dose: 50 mcg Documented by: Home Medications Medication Instructions Recorded Confirmed Last Taken Type cholecalciferol (vitamin D3) 50 1 tab PO DAILY 10/29/21 10/29/21 Unknown History mcg (2,000 unit) tablet duloxetine 20 mg capsule,delayed 1 cap PO DAILY 10/29/21 10/29/21 Unknown History release glipizide 5 mg tablet 1 tab PO BID 10/29/21 10/29/21 Unknown History levothyroxine 150 mcg tablet 1 tab PO DAILY 10/29/21 10/29/21 Unknown History loratadine 10 mg tablet 1 tab PO DAILY 10/29/21 10/29/21 Unknown History metformin 500 mg tablet 2 tab PO BID 10/29/21 10/29/21 Unknown History tamsulosin 0.4 mg capsule 1 cap PO BEDTIME 10/29/21 10/29/21 Unknown History Physical Exam Vital Signs: Vital Signs: Last Vital Signs Temp 97.6 F 11/02/21 07:45 Pulse 70 11/02/21 07:45 Resp 18 11/02/21 07:45 BP 166/99 H 11/02/21 07:45 Pulse Ox 98 11/02/21 07:45 BMI result Body Mass Index 37.8 GENERAL APPEARANCE: in no acute distress, pleasant. NECK: no carotid bruit, no jugular venous distention. SKIN: no suspicious lesions, warm and dry. HEART: no murmurs, regular rate and rhythm. LUNGS: clear to auscultation bilaterally. ABDOMEN: soft, nontender. EXTREMITIES: no edema. PERIPHERAL PULSES: equal. NEUROLOGIC: No gross deficits, AAO X 3 Objective Labs and Meds Result diagrams: 11/02/21 05:36 10/30/21 05:49 Lab results: Laboratory Results - last 24 hr 11/01/21 11/01/21 11/02/21 15:31 19:56 05:36 Hgb 14.0 Hct 45.5 POC Glucose 140 H 145 H 11/02/21 11/02/21 07:28 10:47 Hgb Hct POC Glucose 120 H 163 H Assessment and Plan (1) Chest pain: Status: Acute (2) Cardiomyopathy: Status: Acute (3) Pulmonary embolism: Status: Acute Plan pleasant 76-year-old gentleman who has background history of DVT, diabetes and hypertension who is presenting with chest pain ongoing for 2 months. He has exertional chest tightness and shortness of breath. His workup has shown a small pulmonary embolism. I think his clinical story does not fit in with PE as a cause for symptoms. he has been changed to Eliquis for the pulmonary embolism. Agree with continuing that for now. I think given mildly reduced ejection fraction and inferior wall motion abnormality and his symptoms being exertional chest discomfort he need ischemic evaluation. We will pursue exercise stress test on him. If stress test showed concerning features then I will consider transferring [facility] for cardiac catheterization. Please add baby aspirin to his regimen. His workup is currently suggestive of coronary disease. Blood pressure is improving with amlodipine addition. Thank you for allowing me to participate in the care of your patient. Please feel free to contact me if you have any questions. Procedures Date of Service Date of Service: 11/02/21
--- NOTE | 2021-11-02 11:24 | MHC.CM.PN ---
Addendum entered by Estefania Albetro 11/02/21 11:47: CHANGE OF PLAN- CARDIOLOGY WANTS TO PERFORM A STRESS TEST FOR Sunday. Original Note: PLAN IS FOR PATIENT TO AMBULATE, AND IF ABLE TO DO DISTANCE, HOME TODAY
--- NOTE | 2021-11-02 11:30 | PM.DS ---
DS: Providers Provider Date of Service: 11/03/21 Date of admission: 10/29/21 23:24 Primary care physician: Chloe Ridley MD Consults: 10/29/21 23:22 Consult to Hematology / Oncology Routine Consulting Provider: Li Bedolla Reason for consultation: PE ( pt on coumadin for hx of DVT) Has provider been notified: No 11/01/21 17:16 Consult to Cardiology Routine Consulting Provider: Gurdeep Lamar Reason for consultation: pulm embolism and abnormal echo DS: Diagnosis Discharge Diagnosis (1) Pulmonary embolism: Status: Acute (2) Ventricular dysfunction, right: Status: Acute DS: Summary Hospital Course Hospital Course: 76-year-old male with past medical history of hypertension, DVT, depression anxiety,? diabetes, hypothyroidism, BPH, presents to the hospital with complaints of left-sided chest pain.? Patient reports that his pain has been going on for about 3-4 weeks, intermittent, radiating to both arms, lasting few minutes, occurring spontaneous and resolving spontaneously.? Worse with deep inspiration.? ? He describes the pain as sharp pain, 6/10. ? Patient reports some cough, as well as some sputum production, no abdominal pain nausea or vomiting, no diarrhea constipation, no urinary symptoms and no lower extremity edema.? On arrival to the ED patient hemodynamically stable with no significant abnormal vitals except for a slightly elevated blood pressure Labs are significant for WBC count of 4.0, PT of 17.7, INR of 1.5,? BNP of 72, troponin of 3.6, UA negative, Chest CT angiogram shows small embolism in the branch to the anterior segment of the left upper lobe.? Contrast reflux into the IVC could be manage station of mild right heart failure ?? Per patient he has had DVT in his left lower extremity twice in the past and has had placement of a filter in his left femoral vein and takes Coumadin.? Patient reports compliance with Coumadin. Hospital course: Patient came to the hospital because of shortness of breath-found to have pulmonary embolism, started on IV heparin and seen by hematology: Patient's symptom medically improved significantly. Currently improved chest pain denies any new symptoms. He is on Eliquis for patient. Cardiology performed exercise stress test showing no ischemia. Metoprolol and Imdur added to his regimen and will follow on outpatient basis. Time Spent with Patient Time attestation: Total time spent providing and/or coordinating discharge services: Discharge coordination time: Greater than 30 minutes Quality: Stroke Does the patient have a stroke diagnosis?: No Physical Exam Vital Signs: Vital Signs: Selected Entries 11/03/21 07:13 Temperature 97.8 F Pulse Rate 80 Respiratory Rate 18 Blood Pressure 140/96 H Pulse Oximetry 98 Oxygen Delivery Me thod Room Air Const: Other: General: AO X 3, no acute distress Resp: CTA bilateral CVS: S1,S2,RRR GI: +BS, NT, no distention Skin: No rash Neuro: motor grossly intact Psych: appropriate affect DS: Data Data Completed and Pending Labs on day of discharge: Laboratory Results - last 24 hr 11/01/21 11/01/21 11/02/21 15:31 19:56 05:36 Hgb 14.0 Hct 45.5 POC Glucose 140 H 145 H 11/02/21 11/02/21 07:28 10:47 Hgb Hct POC Glucose 120 H 163 H Discharge Plan Discharge Anticipated Discharge Date/Time: 11/03/21 13:34 Patient Disposition: Home, Self-Care Discharge Diagnosis: pulm embolism and possble ch leg dvt Referrals: Chloe Ridley MD [Primary Care Provider] - 1 Week Discharge Medications: New Eliquis 5 mg Tablet 10 mg PO BID Qty: 51 0RF Rx Instructions: take 2 tabs eliquis by mouth twice daily until 11/06/21, then switch to 1 tab eliquis by mouth twice daily on 11/07/21. given 1 month supply -further supply as per pcp. metoprolol succinate [Toprol XL] 25 mg tablet extended release 24 hr 25 mg PO DAILY Qty: 30 0RF isosorbide mononitrate 30 mg Tablet Extended Release 24 Hr 30 mg PO DAILY Qty: 30 0RF Protocol: Hold for SBP< HOLD for SBP < : 90 Continued metformin 500 mg tablet 2 tab PO BID 0RF tamsulosin 0.4 mg capsule 1 cap PO BEDTIME 0RF levothyroxine 150 mcg tablet 1 tab PO DAILY 0RF loratadine 10 mg tablet 1 tab PO DAILY 0RF glipizide 5 mg tablet 1 tab PO BID 0RF duloxetine 20 mg capsule,delayed release(DR/EC) 1 cap PO DAILY 0RF cholecalciferol (vitamin D3) 50 mcg (2,000 unit) tablet 1 tab PO DAILY 0RF Discontinued warfarin 5 mg tablet 5 mg PO DAILY 0RF Discharge Orders: Discharge Order (Routine); Ordered 11/02/21 Ordered By: Palmer Dixon Diet: advance to usual diet Activity on Discharge: As tolerated Stand Alone Forms: Patient Portal Discharge page Care Plan Goals: Patient came to the hospital because of shortness of breath-found to have pulmonary embolism, started on IV heparin and seen by hematology: Patient's symptom medically improved significantly. Currently improved chest pain denies any new symptoms. Will switch the patient to Eliquis since patient was subtherapeutic on warfarin and having pulmonary embolism as above. Further management out patiently as per PCP. To follow up with cardiology on outpatient basis.. Cardiology has started him on Imdur and Toprol Health Concerns: As above. Plan of Treatment: As above. Assessment: As above. Patient Instructions: Apixaban (By mouth) Discharge Date/Time: 11/03/21 15:15
[2021-11-02 12:00] VITALS: BP 138/70; PULSE 80; RESP 18; TEMP 36.4; O2SAT 96
--- NOTE | 2021-11-02 13:12 | HO.PM.IMPN ---
Subjective Subjective Date of Service: 11/02/21 Interval History: f/u on chest pain, PE... No further chest pain Review of Systems no chest pain, no sob Physical Exam Vital Signs: Vital Signs: Last Vital Signs Temp 97.5 F 11/02/21 12:00 Pulse 80 11/02/21 12:00 Resp 18 11/02/21 12:00 BP 138/70 11/02/21 12:00 Pulse Ox 96 11/02/21 12:00 BMI result Body Mass Index 37.8 Const: Other: General: AO X 3, no acute distress Resp: CTA bilateral CVS: S1,S2,RRR GI: +BS, NT, no distention Skin: No rash Neuro: motor grossly intact Psych: appropriate affect Objective Data Active Medications Acetaminophen (Acetaminophen 325 Mg Tablet) 650 mg PO Q6H PRN PRN Reason: Pain, Mild (Pain Scale 1-3) Amlodipine Besylate (Amlodipine Besylate 2.5 Mg Tablet) 2.5 mg PO DAILY [facility]; Protocol Last Admin: 11/02/21 09:14 Dose: 2.5 mg Documented by: BIRGIT Comments: 145/76 , 71 Apixaban (Apixaban 5 Mg Tablet) 10 mg PO BID [facility] Stop: 11/07/21 09:01 Last Admin: 11/02/21 09:14 Dose: 10 mg Documented by: BIRGIT Aspirin (Aspirin Enteric Coated 81 Mg Tablet.) 81 mg PO BEDTIME [facility] Last Admin: 11/01/21 20:31 Dose: 81 mg Documented by: SANKET Dextrose (Dextrose 50 % 25 Gm/50 Ml Syringe) 25 gm IVPUSH Q15M PRN; Protocol PRN Reason: per Hypoglycemia Standing Ord. Docusate Sodium (Docusate Sodium 100 Mg Capsule) 100 mg PO DAILY PRN PRN Reason: Constipation Duloxetine HCl (Duloxetine Hcl 20 Mg Capsule.) 20 mg PO DAILY [facility] Last Admin: 11/02/21 09:13 Dose: 20 mg Documented by: BIRGIT Glucose (Glucose Gel 15 Gm Gel..Gram.) 15 gm PO Q15M PRN; Protocol PRN Reason: per Hypoglycemia Standing Ord. Insulin Human Lispro (Insulin Lispro 100 Unit/Ml 3 Ml Vial) 0 unit SUBCUT QIDACHS [facility]; Protocol Last Admin: 11/02/21 10:57 Dose: Not Given Documented by: BIRGIT Non-Admin Reason: No Insulin Coverage Levothyroxine Sodium (Levothyroxine Sodium 150 Mcg Tablet) 150 mcg PO DAILY@0600 [facility] Last Admin: 11/02/21 05:48 Dose: 150 mcg Documented by: JAMAL Loratadine (Loratadine 10 Mg Tablet) 10 mg PO DAILY [facility] Last Admin: 11/02/21 09:14 Dose: 10 mg Documented by: BIRGIT Ondansetron HCl (Ondansetron Hcl 4 Mg/2 Ml Vial) 4 mg IVPUSH Q8H PRN PRN Reason: Nausea and Vomiting Sodium Chloride (0.9 % Sodium Chloride Flush 3 Ml Syringe) 3 ml IVFLUSH QSHIFT [facility] Last Admin: 11/02/21 09:19 Dose: 3 ml Documented by: BIRGIT Tamsulosin HCl (Tamsulosin Hcl 0.4 Mg Capsule) 0.4 mg PO BEDTIME [facility] Last Admin: 11/01/21 20:31 Dose: 0.4 mg Documented by: SANKET Vitamin D (Cholecalciferol (Vitamin D3) 25 Mcg Tablet) 50 mcg PO DAILY [facility] Last Admin: 11/02/21 09:27 Dose: 50 mcg Documented by: BIRGIT Labs CBC & Chem 7: 11/02/21 05:36 10/30/21 05:49 Labs: Laboratory Results - last 24 hr 11/01/21 11/01/21 11/02/21 15:31 19:56 07:28 POC Glucose 140 H 145 H 120 H 11/02/21 10:47 POC Glucose 163 H Assessment and Plan (1) Pulmonary embolism: Status: Acute (2) Ventricular dysfunction, right: Status: Acute Plan 76-year-old male with past medical history of DVT on Coumadin, with subtherapeutic INR presents to the hospital found to have PE 1. pulmonary embolus-reccurent with subtherapeutic INR -continue Eliquis 2. chest p -? likely secondary to PE -? troponin negative x2, EKG shows no ST T-wave changes ?echocardiogram in the setting of PE to rule out right heart dysfunction -cardiology recommends stress tomorrow 3.? diabetes: fs [id number]'s -? low-dose sliding scale insulin, avoid coverage below 200 mg/dl -? hold oral antihyperglycemics -? diabetic diet 4. ? BPH -? continue tamsulosin 5.? hypothyroidism -? continue levothyroxine ?DVT prophylaxis: heparin Quality Stroke Does the patient have a stroke diagnosis?: No VTE Prior VTE?: No VTE Risk Level:: Medical - moderate - high VTE Device Contraindication: Treatment Not Indicated VTE Drug Contraindication: N/A - Med Ordered
[2021-11-02 15:05] VITALS: BP 140/89; PULSE 78; RESP 18; TEMP 36.7; O2SAT 96
[2021-11-02 15:53] LABS: Glucose, Whole Blood 149 mg/dL (60-115)
[2021-11-02 19:13] VITALS: BP 160/92; PULSE 82; RESP 16; TEMP 36.3; O2SAT 95
[2021-11-02 19:53] LABS: Glucose, Whole Blood 119 mg/dL (60-115)
[2021-11-02] MEDS: Aspirin Enteric Coated 81 MG TABLET.DR PO (20:05)
[2021-11-02] MEDS: Tamsulosin HCL 0.4 MG CAPSULE PO (20:05)
[2021-11-02 23:21] VITALS: BP 149/72; PULSE 75; RESP 18; TEMP 36.8; O2SAT 96
[2021-11-03 03:47] VITALS: BP 123/63; PULSE 69; RESP 18; TEMP 36.7; O2SAT 96
[2021-11-03] MEDS: Levothyroxine Sodium 150 MCG TABLET PO (05:47)
[2021-11-03 07:13] VITALS: BP 140/96; PULSE 80; RESP 18; TEMP 36.6; O2SAT 98
[2021-11-03 07:23] LABS: Glucose, Whole Blood 115 mg/dL (60-115)
[2021-11-03] MEDS: Loratadine 10 MG TABLET PO (08:18)
[2021-11-03] MEDS: Cholecalciferol (Vitamin D3) 25 MCG TABLET 50 MCG PO (08:19)
[2021-11-03] MEDS: Isosorbide Mononitrate 30 MG TAB.ER.24H PO (08:19)
[2021-11-03] MEDS: Apixaban 5 MG TABLET 10 MG PO (08:19)
[2021-11-03] MEDS: amLODIPine Besylate 2.5 MG TABLET PO (08:19)
[2021-11-03] MEDS: DULoxetine HCl 20 MG CAPSULE.DR PO (08:19)
[2021-11-03] MEDS: 0.9 % Sodium Chloride Flush 3 ML SYRINGE IVFLUSH ×2 (08:22)
[2021-11-03 11:05] VITALS: BP 123/73; PULSE 73; RESP 18; TEMP 36.7; O2SAT 94
[2021-11-03 11:23] LABS: Glucose, Whole Blood 245 mg/dL (60-115)
[2021-11-03] MEDS: Insulin Lispro 100 UNIT/ML 3 ML VIAL SUBCUT (11:42)
--- NOTE | 2021-11-03 12:10 | MHC.CM.PN ---
IMM 11/03/21 Male 76 DX PE chest pain. He is discharged today to home. He has arranged for a ride home.
--- NOTE | 2021-11-03 12:48 | PM.PNCARD ---
Subjective Subjective Date of Service: 11/03/21 Principal diagnosis: PE, CMP, WMA on echo Interval history: Cardiology follow up for echo findings. Seen at 0900. Today he reports feeling well. Breathing is comfortable. No PND, orthopnea or edema. No cough. No chest pains, palpitations, dizziness. Steady on feet with ambulation. Hoping to go home today. Review of Systems Review of Systems as above Yes all other systems are reviewed and are negative Physical Exam Vital Signs: Last Vital Signs Temp 98.0 F 11/03/21 11:05 Pulse 73 11/03/21 11:05 Resp 18 11/03/21 11:05 BP 123/73 11/03/21 11:05 Pulse Ox 94 11/03/21 11:05 BMI result Body Mass Index 37.8 Const General: cooperative, no acute distress, alert and awake Orientation/consciousness: patient oriented x3 Neck Neck: Yes normal visual inspection and Yes no JVD Resp Effort & Inspection: normal respiratory effort, able to speak in complete sentences and not labored Auscultation: clear to auscultation bilaterally, no crackles, no rales, no rhonchi and no wheezes Cardio Rate: regular rate Rhythm: regular rhythm Heart sounds: S1 normal heart sound present and S2 normal heart sound present Peripheral pulses: Peripheral pulses 2+ throughout GI Inspection: Yes normal to inspection Neuro General: patient oriented x3 Extrem General: Yes normal to inspection and No edema Objective Labs and Meds Result diagrams: 11/02/21 05:36 10/30/21 05:49 Lab results: Laboratory Results - last 24 hr 11/02/21 11/02/21 11/03/21 15:08 19:50 07:14 POC Glucose 149 H 119 H 115 11/03/21 11:09 POC Glucose 245 H Progress Note: A&P Assessment and plan (1) Cardiomyopathy: Status: Acute Assessment and Plan: Admit with chest discomfort and sob. CTA shows small PE. Ruled out for ACS with normal troponins and EKG without acute ST/ T wave abn. He was anticoagulated for PE. Has hx of DVT and has IVC filter. Echo 10/31 shows EF 40-45%, LA mod dilated, basal inferior hypokinesis, mildly dilated aorta 4.2 cm at sinus of valsalva and 3.9 cm ascending. He has cardiac risk factors of age, HTN, DM. He underwent Exercise stress test today showing decreased activity tolerance, related to knee discomfort, mild sob, no chest discomfort, without EKG changes of ischemia noted at achieved workload. He did have isolated PACs, PVCs and short runs of atrial tach, up to 5 beats, asymptomatic. With his echo findings and limited activity tolerance, will plan for outpt pharmacological nuclear stress test to further evaluate for ischemia. He is on Eliquis for anticoagulation. He should be on statin, with his history of DM. With CMP and brief episodes of atrial tachycardia, will start Metoprolol xl 25mg daily, for neurohormal modulation and ectopy supression. Will arrange for outpt holter monitor to further assess arrythmia. Can continue with Isosorbide. Will stop Amlodipine with the addition Metoprolol. Can be discharged from cardiology perspective. We will arrange for outpt cardiology follow up. (2) Chest pain: Status: Acute Assessment and Plan: CP and sob with exertion prior to admit. Only mild sob on stress test, no CP. Needs further evaluation for ischemia. (3) Pulmonary embolism: Status: Acute Assessment and Plan: Managed by hospitalist. On Eliquis. Has IVC filter. Fall Risk Details Current Medications: Current Medications Acetaminophen (Acetaminophen 325 Mg Tablet) 650 mg PO Q6H PRN PRN Reason: Pain, Mild (Pain Scale 1-3) Amlodipine Besylate (Amlodipine Besylate 2.5 Mg Tablet) 2.5 mg PO DAILY [facility]; Protocol Last Admin: 11/03/21 08:19 Dose: 2.5 mg Documented by: Apixaban (Apixaban 5 Mg Tablet) 10 mg PO BID [facility] Stop: 11/07/21 09:01 Last Admin: 11/03/21 08:19 Dose: 10 mg Documented by: Aspirin (Aspirin Enteric Coated 81 Mg Tablet.) 81 mg PO BEDTIME [facility] Last Admin: 11/02/21 20:05 Dose: 81 mg Documented by: Dextrose (Dextrose 50 % 25 Gm/50 Ml Syringe) 25 gm IVPUSH Q15M PRN; Protocol PRN Reason: per Hypoglycemia Standing Ord. Docusate Sodium (Docusate Sodium 100 Mg Capsule) 100 mg PO DAILY PRN PRN Reason: Constipation Duloxetine HCl (Duloxetine Hcl 20 Mg Capsule.) 20 mg PO DAILY [facility] Last Admin: 11/03/21 08:19 Dose: 20 mg Documented by: Glucose (Glucose Gel 15 Gm Gel..Gram.) 15 gm PO Q15M PRN; Protocol PRN Reason: per Hypoglycemia Standing Ord. Insulin Human Lispro (Insulin Lispro 100 Unit/Ml 3 Ml Vial) 0 unit SUBCUT QIDACHS [facility]; Protocol Last Admin: 11/03/21 11:42 Dose: 2 unit Documented by: Isosorbide Mononitrate (Isosorbide Mononitrate 30 Mg Tab.Er.24h) 30 mg PO DAILY [facility]; Protocol Last Admin: 11/03/21 08:19 Dose: 30 mg Documented by: Levothyroxine Sodium (Levothyroxine Sodium 150 Mcg Tablet) 150 mcg PO DAILY@0600 [facility] Last Admin: 11/03/21 05:47 Dose: 150 mcg Documented by: Loratadine (Loratadine 10 Mg Tablet) 10 mg PO DAILY [facility] Last Admin: 11/03/21 08:18 Dose: 10 mg Documented by: Ondansetron HCl (Ondansetron Hcl 4 Mg/2 Ml Vial) 4 mg IVPUSH Q8H PRN PRN Reason: Nausea and Vomiting Sodium Chloride (0.9 % Sodium Chloride Flush 3 Ml Syringe) 3 ml IVFLUSH QSHIFT [facility] Last Admin: 11/03/21 08:22 Dose: 3 ml Documented by: Tamsulosin HCl (Tamsulosin Hcl 0.4 Mg Capsule) 0.4 mg PO BEDTIME [facility] Last Admin: 11/02/21 20:05 Dose: 0.4 mg Documented by: Vitamin D (Cholecalciferol (Vitamin D3) 25 Mcg Tablet) 50 mcg PO DAILY [facility] Last Admin: 11/03/21 08:19 Dose: 50 mcg Documented by: Time Spent With Patient Time: Total time spent is greater than 50% in coordination of care (as documented) at patient's floor/unit and/or counseling patient: 24 Time with patient: 15 - 24 minutes Progress Note: Quality Stroke Does the patient have a stroke diagnosis?: No Procedures Date of Service Date of Service: 11/03/21
[2021-11-03 13:25] VITALS: PULSE 125
[2021-11-03] MEDS: Metoprolol Succinate ER 25 MG TAB.ER.24H PO (13:26)
== END 2021-11-03 15:15 | disposition home or self-care (01) | DRG 176 ==
LOC: HO.ED 22:55 → HO.EDOVER 23:32 → HO.S3 10-30 21:45 → HO.IMC 11-02 17:45
PROVIDERS: Internal Medicine; Nurse Practitioner Family; Admitting Provider Internal Medicine; Emergency Provider Emergency Medicine; PCP Internal Medicine; Visit Provider Internal Medicine
DX: I26.99 Other pulmonary embolism without acute cor pulmonale (principal); I42.9 Cardiomyopathy, unspecified; I11.9 Hypertensive heart disease without heart failure; E03.9 Hypothyroidism, unspecified; N40.0 Benign prostatic hyperplasia without lower urinary tract symptoms; R79.1 Abnormal coagulation profile; R00.0 Tachycardia, unspecified; Z20.822 Contact with and (suspected) exposure to COVID-19; Z95.828 Presence of other vascular implants and grafts; Z86.718 Personal history of other venous thrombosis and embolism; Z85.038 Personal history of other malignant neoplasm of large intestine; Z79.01 Long term (current) use of anticoagulants; Z79.84 Long term (current) use of oral hypoglycemic drugs; Z79.890 Hormone replacement therapy; Z79.899 Other long term (current) drug therapy
CPT/HCPCS: 36415; 71045; 71275; 80048; 80076; 81003; 82947; 83690; 83735; 83880; 84484; 85014; 85018; 85025; 85379; 85610; 85730; 87635; 93005; 93017; 93306; 93970; 96365; 99285; 99291; Q9967

== ENCOUNTER → 2021-11-28 09:36 | Outpatient (REF) | payer MEDICARE, SELFPAY ==
--- NOTE | ~2021-11-28 | NM_ITS ---
Lexiscan Myocardial perfusion study Indication: Chest pain, assess for coronary disease and ischemia Technique: The patient was brought in for a Lexiscan perfusion study on 11/28/2021 and was injected 0.4 mg of Lexiscan intravenously. Within a minute of this injection 45 mCi of sestamibi was given intravenously. Images were obtained using the SPECT gamma camera interlaced with the gating device. Images were obtained in supine position. Resting perfusion study was performed on 12/01/2021. Patient was administered 45 mCi of sestamibi intravenously at rest. Images were then obtained in supine position. Images were processed with the software and compared side to side in short axis, horizontal long axis and vertical long axis views. Findings: Raw acquisition reviewed. Arms by the patient's side. The stress perfusion study showed diminished tracer uptake along the inferolateral wall. With CT attenuation corrected, there seems to be improvement except in the most distal inferior wall. The gated study shows mildly reduced normal LV systolic function with calculated LVEF of 49%. LV cavity is normal in size. The gated study shows mild inferior hypokinesis. Seen in the basal inferior wall and distal inferolateral wall. Resting study shows diminished tracer uptake in the inferolateral wall. There is improvement with CT attenuation correction suggestive of diaphragmatic attenuation artifact, except in the most distal inferolateral wall. Gating at rest reveals ejection fraction at 52%. Hypokinesis in the basal inferior wall and distal inferolateral wall. The findings are consistent with fixed defect along the inferolateral wall with good improvement with CT attenuation correction but not entirely. NM/NM cardiolite stress test Impression: 1. Myocardial perfusion imaging study shows no clear reversible defects. Fixed defect in the inferolateral wall, basal inferior wall that could be from diaphragmatic artifact. Less likely nontransmural infarct. 2. Gated LVEF is 49% during stress and 52% during rest. 3. Transient ischemic dilatation not present. EKG component of the test reported separately.
--- NOTE | 2021-11-28 09:40 | HM_ITS ---
* Total monitoring time 3 days. * Underlying rhythm is sinus. Average rate 68/Min. Range 46-106/Min. * No atrial fibrillation or flutter or AV blocks or pauses. * Frequent supraventricular ectopy with a burden of 2.6%. Brief runs noted. Longest 28 beats. * Occasional ventricular ectopy. 3 morphologies. 20 couplets. No runs. * No patient events. MTDD
--- NOTE | 2021-11-28 09:40 | CA_ITS ---
Acquisition Time: 2021-11-28 10:57:01 Total Exercise Time: 00:02:00 Test Indications: PULMONARY EMBOLI Medications: Protocol: LEXISCAN Max HR: 118 BPM 80% of Pred: 146 BPM Max BP: 140/084 mmHG Max Work Load: 1.7 METS Pharmacological stress test with Lexiscan injection, while walking on treadmill, without anginal symptoms, with isolated PACs, with normotensive response to injection, with nondiagnostic EKG for ischemia. Nuclear images penbding. Test reviewed with Dr Irizarry. Referred By: Elisa Winn Overread By: ELISA WINN
== END ==
LOC: HO.CARD 09:36
PROVIDERS: Visit Provider Nurse Practitioner Family
DX: R07.9 Chest pain, unspecified (principal); I47.1 Supraventricular tachycardia; I42.9 Cardiomyopathy, unspecified; I26.99 Other pulmonary embolism without acute cor pulmonale
CPT/HCPCS: 78452; 93017; 93242; A9500; J0280; J2785

== ENCOUNTER → 2022-01-09 14:58 | Outpatient (BNVA) | payer MEDICARE, SELFPAY | PROVIDERS: PCP Internal Medicine; Visit Provider Internal Medicine Cardiovascular Disease | DX: I26.99 Other pulmonary embolism without acute cor pulmonale (principal); I42.9 Cardiomyopathy, unspecified | CPT/HCPCS: 99212 ==

== ENCOUNTER → 2022-04-26 14:26 | Outpatient (BNVA) | payer MEDICARE, SELFPAY | PROVIDERS: PCP Internal Medicine; Visit Provider Internal Medicine Cardiovascular Disease | DX: I42.9 Cardiomyopathy, unspecified (principal); I47.1 Supraventricular tachycardia; I26.99 Other pulmonary embolism without acute cor pulmonale | CPT/HCPCS: 93005; 99212 ==

== ENCOUNTER 2023-04-10 13:59 | Emergency (ER) | payer MEDICARE, SELFPAY ==
[2023-04-10 14:06] VITALS: BP 146/76; PULSE 67; RESP 18; TEMP 36.9; O2SAT 95; BMI 37.2
--- NOTE | 2023-04-10 14:07 | ED.GENADULT ---
HPI - General Adult General Chief complaint: Skin/Abscess/Foreign Body Stated complaint: Wound Left Foot Time Seen by Provider: 04/10/23 14:15 Source: patient and old records reviewed Mode of arrival: ambulatory Limitations: no limitations History of Present Illness HPI narrative: 77 yo male with history of DM, PE on Eliquis, HTN, cardiomyopathy who presents to the ER for evaluation of a wound to his left lower leg that he noticed 1 week ago after he scratched the area. He states the area has gotten slightly bigger, the size of a dime. It is not draining and it does not have surrounding redness. No fever or chills. No pain in the area. No known insect bites. He reports chronic skin changes and LE swelling to the LLE due to history of DVT in the past. MD complaint: wound left lower leg Onset (ago): week(s) (1) Location: left and lower extremity Radiation: non-radiation Severity: mild Relieving factors: none Exacerbating factors: none Associated symptoms: denies other symptoms Treatments prior to arrival: none Related Data Home Medications Medication Instructions Recorded Confirmed cholecalciferol (vitamin D3) 50 1 tab PO DAILY 10/29/21 04/26/22 mcg (2,000 unit) tablet duloxetine 20 mg capsule,delayed 1 cap PO DAILY 10/29/21 04/26/22 release apixaban 5 mg tablet (Eliquis) 5 mg PO BID 01/09/22 04/26/22 glipizide 5 mg tablet 5 mg PO BID 01/09/22 04/26/22 levothyroxine 150 mcg tablet 150 mcg PO DAILY 01/09/22 04/26/22 loratadine 10 mg tablet 10 mg PO DAILY 01/09/22 04/26/22 metformin 500 mg tablet 1,000 mg PO BID 01/09/22 04/26/22 tamsulosin 0.4 mg capsule 0.4 mg PO BEDTIME 01/09/22 04/26/22 Previous Rx's Medication Instructions Recorded isosorbide mononitrate 30 mg 30 mg PO DAILY #30 tabs 11/03/21 tablet,extended release 24 hr metoprolol succinate 25 mg 25 mg PO DAILY #30 tabs 11/03/21 tablet,extended release 24 hr (Toprol XL) amoxicillin 875 mg-potassium 1 tab PO BID #14 tabs 04/10/23 clavulanate 125 mg tablet bacitracin zinc 500 unit/gram 1 appl topical Q8H #28 grams 04/10/23 topical ointment Allergies Allergy/AdvReac Type Severity Reaction Status Date / Time No Known Allergies Allergy Verified 04/26/22 15:05 [No Known Allergies*] Review of Systems Review of Systems: Yes all other systems are reviewed and are negative PMFSH Past Medical History Attestation statement: The following information was validated with the patient. Medical History BPH (benign prostatic hyperplasia) Cardiomyopathy Depression Diabetes History of colon cancer History of DVT (deep vein thrombosis) Hypertension Hypothyroidism Ventricular dysfunction, right Surgical History H/O thyroidectomy History of colon surgery S/P IVC filter Family History Family History Mother Diabetes Other Hypertension Social History Social History Household Members: Other Housing: Apartment Do you presently have visiting nurse or other home services: Yes Alcohol intake: current Alcohol intake frequency: holidays/special occasions only Patient Tobacco Use Status: Former Tobacco user Years Smoked: 5 +/- Advance Directives: No service: No Current occupational status: retired Physical Exam ED Vital Signs: Vital Signs - 24 hr 04/10/23 14:06 Temperature 98.4 F Pulse Rate 67 Respiratory Rate 18 Blood Pressure 146/76 H Pulse Oximetry 95 Oxygen Delivery Method Room Air BMI result Body Mass Index 37.2 Appearance: Alert. Oriented X3. No acute distress. HEENT: normal inspection CVS: Normal heart rate and rhythm. Pulses normal. Respiratory: No respiratory distress. Skin: Skin warm and dry. Normal skin color. Normal skin turgor. No rashes. Extremities: left lower extremity with chronic venous stasis changes, hyperpigmentation and 1+ edema of the lower leg. left medial lower leg about 4 inches proximal to the medial malleolus there is an irregularly shaped superficial wound with pink/yellow granulation tissue approx 1x1cm, no drainage or surrounding erythema or warmth Neuro: Oriented X 3. No motor deficit. No sensory deficit. Medical Decision Making Medical Decision Making MDM Narrative: 77 yo male with history of DM, PE on Eliquis, HTN, cardiomyopathy who presents to the ER for evaluation of a wound to his left lower leg that he noticed 1 week ago after he scratched the area. Exam is reassuring without any signs of abscess or significant cellulitis. Leg and foot are warm and well perfused. No drainage from the wound. Will plan to start oral and topical abx and refer to the wound clinic for further management and monitoring. Comfortable w/ d/c home. patient agrees w/ plan and return precautions were discussed. Differential Diagnosis Differential Diagnoses: The differential diagnosis associated with the presentation includes nonhealing wound, PVD, PAD, cellulitis, abscess External Record Review External record reviewed: Prior outpatient labs Tests considered The following testing was considered but not selected: lab workup considered but would not chemical cell changer Prescription Management I considered prescription management with: Antibiotic Chronic Conditions Patient?s care impacted by: Diabetes Critical Care Time Critical Care Time Critical Care Time: No Discharge Plan Discharge Clinical Impression: Leg wound, left Patient Disposition: Home, Self-Care Instructions: Acute Wounds (DC) Additional Instructions: Take the prescribed antibiotics as directed, complete the entire course and do not miss any doses Use the bacitracin cream 2-3 times per day Recommend following up with the wound clinic and your doctor for close monitoring of the wound If you develop new or worsening symptoms call 911 or come back to the ER for further evaluation. Prescriptions: New amoxicillin-pot clavulanate 875-125 mg tablet 1 tab PO BID Qty: 14 0RF bacitracin zinc 500 unit/gram ointment 1 appl topical Q8H Qty: 28 0RF No Action duloxetine 20 mg capsule,delayed release(DR/EC) 1 cap PO DAILY cholecalciferol (vitamin D3) 50 mcg (2,000 unit) tablet 1 tab PO DAILY metoprolol succinate [Toprol XL] 25 mg tablet extended release 24 hr 25 mg PO DAILY Qty: 30 0RF isosorbide mononitrate 30 mg Tablet Extended Release 24 Hr 30 mg PO DAILY Qty: 30 0RF Protocol: Hold for SBP< HOLD for SBP < : 90 glipizide 5 mg tablet 5 mg PO BID levothyroxine 150 mcg tablet 150 mcg PO DAILY loratadine 10 mg tablet 10 mg PO DAILY metformin 500 mg tablet 1,000 mg PO BID tamsulosin 0.4 mg capsule 0.4 mg PO BEDTIME Eliquis 5 mg tablet 5 mg PO BID Referrals: [facility] [place] [facility] [Outside] (left lower leg wound) Interventions: ED Discharge Assessment Last Done: 04/10/23 14:26 Discharge Date/Time: 04/10/23 14:28
== END 2023-04-10 14:28 | disposition home or self-care (01) ==
LOC: HO.ED 14:21
PROVIDERS: Emergency Provider Emergency Medicine; PCP Internal Medicine
DX: S91.312A Laceration without foreign body, left foot, initial encounter (principal); X58.XXXA Exposure to other specified factors, initial encounter; Y93.9 Activity, unspecified; Y92.9 Unspecified place or not applicable; Y99.9 Unspecified external cause status; Z87.891 Personal history of nicotine dependence; Z79.899 Other long term (current) drug therapy
CPT/HCPCS: 99282; 99283

== ENCOUNTER 2023-05-09 13:51 | Emergency (ER) | payer MEDICARE, SELFPAY ==
[2023-05-09 14:16] VITALS: BP 141/89; PULSE 68; RESP 18; TEMP 36.8; O2SAT 95; BMI 39.2
--- NOTE | 2023-05-09 14:17 | ED.SKABFB ---
HPI - Skin/Abscess/Foreign Bdy General Chief complaint: Extremity Problem Stated complaint: wound on leg Time Seen by Provider: 05/09/23 14:19 Source: patient Mode of arrival: ambulatory Limitations: no limitations History of Present Illness HPI narrative: 77 yo male with history of DM, PE on Eliquis, HTN, cardiomyopathy here with complaint of wound to the left lower leg >1 month. Of note patient was seen here on April 10 for similar wound and was discharged on Augmentin. Patient reports he is here because although the wound does not appear infected it is not closed completely. He denies fevers, chills, drainage, redness, swelling, warmth. Patient has not seen wound care in the past Related Data Home Medications Medication Instructions Recorded Confirmed cholecalciferol (vitamin D3) 50 1 tab PO DAILY 10/29/21 04/26/22 mcg (2,000 unit) tablet duloxetine 20 mg capsule,delayed 1 cap PO DAILY 10/29/21 04/26/22 release apixaban 5 mg tablet (Eliquis) 5 mg PO BID 01/09/22 04/26/22 glipizide 5 mg tablet 5 mg PO BID 01/09/22 04/26/22 levothyroxine 150 mcg tablet 150 mcg PO DAILY 01/09/22 04/26/22 loratadine 10 mg tablet 10 mg PO DAILY 01/09/22 04/26/22 metformin 500 mg tablet 1,000 mg PO BID 01/09/22 04/26/22 tamsulosin 0.4 mg capsule 0.4 mg PO BEDTIME 01/09/22 04/26/22 Previous Rx's Medication Instructions Recorded isosorbide mononitrate 30 mg 30 mg PO DAILY #30 tabs 11/03/21 tablet,extended release 24 hr metoprolol succinate 25 mg 25 mg PO DAILY #30 tabs 11/03/21 tablet,extended release 24 hr (Toprol XL) amoxicillin 875 mg-potassium 1 tab PO BID #14 tabs 04/10/23 clavulanate 125 mg tablet bacitracin zinc 500 unit/gram 1 appl topical Q8H #28 grams 04/10/23 topical ointment Allergies Allergy/AdvReac Type Severity Reaction Status Date / Time No Known Allergies Allergy Verified 05/09/23 14:16 [No Known Allergies*] Review of Systems Review of Systems: Yes all other systems are reviewed and are negative Constitutional: Constitutional: Reports no additional constitutional complaints, Denies body ache(s), Denies chills, Denies fever(s), Denies headache(s) and Denies weakness Eyes: Eyes: Reports no additional eye complaints and Denies change in vision ENT: Reports system reviewed and no additional complaints, except as documented, Denies dizziness, Denies headache(s), Denies nasal congestion, Denies nasal discharge and Denies neck pain Cardiovascular: Cardiovascular: Reports no additional cardiovascular complaints, Denies chest pain, Denies leg edema and Denies dyspnea Respiratory: Respiratory: Reports no additional respiratory complaints, Denies cough and Denies dyspnea Gastrointestinal: Gastrointestinal: Reports no additional gastrointestinal complaints, Denies abdominal pain, Denies diarrhea, Denies nausea and Denies vomiting Genitourinary: Genitourinary: Denies urinary incontinence Musculoskeletal: Musculoskeletal: Reports no additional musculoskeletal complaints, Denies back pain, Denies arthralgias, Denies joint swelling, Denies neck pain, Denies numbness and Denies tingling Integumentary/Breasts: Skin/Breast: Reports system reviewed and no additional complaints, except as docu, Denies rash and Reports wounds Neurologic: Reports system reviewed and no additional complaints, except as documented, Denies Abnormal speech present, Denies dizziness, Denies headache(s), Denies numbness, Denies tingling and Denies weakness PMFSH Past Medical History Attestation statement: The following information was validated with the patient. Source: old records reviewed and nursing notes reviewed Medical History BPH (benign prostatic hyperplasia) Cardiomyopathy Depression Diabetes History of colon cancer History of DVT (deep vein thrombosis) Hypertension Hypothyroidism Ventricular dysfunction, right Surgical History H/O thyroidectomy History of colon surgery S/P IVC filter Family History Family History Mother Diabetes Other Hypertension Social History Social History Household Members: Other Housing: Apartment Do you presently have visiting nurse or other home services: Yes Alcohol intake: current Alcohol intake frequency: holidays/special occasions only Patient Tobacco Use Status: Former Tobacco user Years Smoked: 5 +/- service: No Current occupational status: retired Physical Exam Vital Signs: Vital Signs: Last Vital Signs Temp 98.3 F 05/09/23 14:16 Pulse 68 05/09/23 14:16 Resp 18 05/09/23 14:16 BP 141/89 H 05/09/23 14:16 Pulse Ox 95 05/09/23 14:16 O2 Del Method Room Air 05/09/23 14:16 BMI result Body Mass Index 39.2 Const: General: cooperative, healthy appearing, comfortable and no acute distress Orientation/consciousness: patient oriented x3 Limitations: no limitations HEENT: Head: Yes normal to inspection Ears: hearing grossly normal bilaterally General nose exam: Normal external nose present Face and sinus: Yes normal facial exam Mouth: Normal oral and palatal mucosa present Throat: Yes posterior oropharynx normal Eyes: General: appearance normal, both eyes and all related structures Pupils: Equal, round and reactive pupils present Neck: Neck: Yes normal visual inspection Chest: Chest palpation & inspection: normal inspection of the chest Resp: Effort & Inspection: normal respiratory effort Auscultation: clear to auscultation bilaterally Cardio: Rate: regular rate Rhythm: regular rhythm Peripheral pulses: Peripheral pulses 2+ throughout GI: Inspection: Yes normal to inspection Palpation (GI): Soft to palpation and nontender Auscultation: normal bowel sounds Back/Spine/Pelvis: Thoracic/Lumbar Spine: thoracic and lumbar spine normal to inspection Skin: General skin exam: no rashes or lesions noted Neuro: General: patient oriented x3, no focal motor deficits and normal sensation to monofilament Cranial nerves: Yes Equal, round and reactive pupils present Cognition (Neuro): normal cognition Speech: No Abnormal speech present Gait exam (Neuro): Normal gait present Motor exam (neuro): 5/5 motor strength present throughout Extrem: Other: To the medial aspect of the left ankle there is a circular area with irregular edges which is small with no surrounding erythema, exudate, drainage, swelling or tenderness. Patient has full range of motion of the left ankle. CMS intact distally. General: Yes normal to inspection Medical Decision Making Medical Decision Making MDM Narrative: 77 yo male with history of DM, PE on Eliquis, HTN, cardiomyopathy here with complaint of wound to the left lower leg >1 month. Of note patient was seen here on April 10 for similar wound and was discharged on Augmentin. Patient reports he is here because although the wound does not appear infected it is not closed completely. He denies fevers, chills, drainage, redness, swelling, warmth. Patient has not seen wound care in the past On exam patient has a nonhealing wound to the left lower extremity-this is likely a diabetic ulcer. There are no active signs of infection. Patient would benefit from seeing wound care and following up with them. He will need a referral from his primary care Reviewed worrisome signs and symptoms of when to return to the emergency room. Comfortable plan for discharge home. Differential Diagnosis Differential Diagnoses: The differential diagnosis associated with the presentation includes Nonhealing diabetic wound No evidence of osteomyelitis, cellulitis Admission/Observation Consideration of admission/observation: Escalation of care including admission/observation considered No evidence of the infection necessitating IV antibiotics and admission Tests considered The following testing was considered but not selected: No concern for osteomyelitis and necessitting need for x-ray Prescription Management I considered prescription management with: Antibiotic No signs of infection necessitating antibiotic use Discharge Plan Discharge Clinical Impression: Leg wound, left Patient Disposition: Home, Self-Care Instructions: Chronic Wounds (ED) Additional Instructions: Return for increasing redness, swelling, drainage, fever Call your primary care doctor for referral to see the wound care center for further management [facility] also has a wound care center at [address] [place], [place] [id number] Prescriptions: No Action duloxetine 20 mg capsule,delayed release(DR/EC) 1 cap PO DAILY cholecalciferol (vitamin D3) 50 mcg (2,000 unit) tablet 1 tab PO DAILY metoprolol succinate [Toprol XL] 25 mg tablet extended release 24 hr 25 mg PO DAILY Qty: 30 0RF isosorbide mononitrate 30 mg Tablet Extended Release 24 Hr 30 mg PO DAILY Qty: 30 0RF Protocol: Hold for SBP< HOLD for SBP < : 90 glipizide 5 mg tablet 5 mg PO BID levothyroxine 150 mcg tablet 150 mcg PO DAILY loratadine 10 mg tablet 10 mg PO DAILY metformin 500 mg tablet 1,000 mg PO BID tamsulosin 0.4 mg capsule 0.4 mg PO BEDTIME amoxicillin-pot clavulanate 875-125 mg tablet 1 tab PO BID Qty: 14 0RF bacitracin zinc 500 unit/gram ointment 1 appl topical Q8H Qty: 28 0RF Eliquis 5 mg tablet 5 mg PO BID Referrals: [facility] [Provider Group] - 1 week [facility] [place]Provider Group] - 1 week
== END 2023-05-09 15:08 | disposition home or self-care (01) ==
PROVIDERS: Emergency Provider Emergency Medicine; PCP Internal Medicine
DX: S81.802D Unspecified open wound, left lower leg, subsequent encounter (principal); X58.XXXD Exposure to other specified factors, subsequent encounter; E11.9 Type 2 diabetes mellitus without complications; I10 Essential (primary) hypertension; Z86.711 Personal history of pulmonary embolism; Z85.038 Personal history of other malignant neoplasm of large intestine; Z87.891 Personal history of nicotine dependence; Z79.01 Long term (current) use of anticoagulants; Z79.899 Other long term (current) drug therapy; Z79.84 Long term (current) use of oral hypoglycemic drugs
CPT/HCPCS: 99282

== ENCOUNTER 2023-05-17 12:44 | Emergency (ER) | payer MEDICARE, SELFPAY ==
[2023-05-17 12:51] VITALS: BP 187/104; PULSE 68; RESP 19; TEMP 37.1; O2SAT 97; BMI 39.0
--- NOTE | 2023-05-17 12:51 | ED.GENADULT ---
HPI - General Adult General Chief complaint: Wound/Laceration Stated complaint: Wound on L leg Time Seen by Provider: 05/17/23 15:19 Source: patient, RN notes reviewed and old records reviewed Mode of arrival: ambulatory History of Present Illness HPI narrative: 77 yo male with history of DM, PE on Eliquis, HTN, cardiomyopathy, presenting to the ED complaining of persistent nonhealing left lower leg wound > 1 month. Patient was evaluated in our ED for similar symptoms on 04/10 discharged on Augmentin, and again on 05/09, recommended to follow-up with wound care however patient never did. States area is healing however is not close completely that is why he presented today. Denies wound worsening, fever/chills, drainage from area, redness Related Data Home Medications Medication Instructions Recorded Confirmed cholecalciferol (vitamin D3) 50 1 tab PO DAILY 10/29/21 04/26/22 mcg (2,000 unit) tablet duloxetine 20 mg capsule,delayed 1 cap PO DAILY 10/29/21 04/26/22 release apixaban 5 mg tablet (Eliquis) 5 mg PO BID 01/09/22 04/26/22 glipizide 5 mg tablet 5 mg PO BID 01/09/22 04/26/22 levothyroxine 150 mcg tablet 150 mcg PO DAILY 01/09/22 04/26/22 loratadine 10 mg tablet 10 mg PO DAILY 01/09/22 04/26/22 metformin 500 mg tablet 1,000 mg PO BID 01/09/22 04/26/22 tamsulosin 0.4 mg capsule 0.4 mg PO BEDTIME 01/09/22 04/26/22 Previous Rx's Medication Instructions Recorded isosorbide mononitrate 30 mg 30 mg PO DAILY #30 tabs 11/03/21 tablet,extended release 24 hr metoprolol succinate 25 mg 25 mg PO DAILY #30 tabs 11/03/21 tablet,extended release 24 hr (Toprol XL) amoxicillin 875 mg-potassium 1 tab PO BID #14 tabs 04/10/23 clavulanate 125 mg tablet bacitracin zinc 500 unit/gram 1 appl topical Q8H #28 grams 04/10/23 topical ointment Allergies Allergy/AdvReac Type Severity Reaction Status Date / Time No Known Allergies Allergy Verified 05/17/23 12:56 [No Known Allergies*] Review of Systems Review of Systems: Constitutional: No Fever, No Chills ENT/Mouth: No Ear Pain, No Nasal Congestion, No sore throat, No Rhinorrhea, No Swallowing Difficulty Cardiovascular: No Chest Pain, No SOB Respiratory: No Cough Gastrointestinal: No Nausea, No Vomiting, No Abdominal pain Genitourinary: No Dysuria, No Urinary Incontinence/retention, No Urgency, No Flank Pain Musculoskeletal: No joint pain, No Myalgias, No Joint Swelling Skin: + Skin Lesions, No rash Neuro: No Weakness, No Numbness, No Paresthesias Yes all other systems are reviewed and are negative Constitutional: Constitutional: Reports as per [facility] Past Medical History Attestation statement: The following information was validated with the patient. Source: old records reviewed Medical History Cardiomyopathy History of colon cancer Hypothyroidism Depression BPH (benign prostatic hyperplasia) Diabetes History of DVT (deep vein thrombosis) Ventricular dysfunction, right Hypertension Surgical History History of colon surgery H/O thyroidectomy S/P IVC filter Family History Family History Mother Diabetes Other Hypertension Social History Social History Household Members: Other Housing: Apartment Do you presently have visiting nurse or other home services: Yes Alcohol intake: current Alcohol intake frequency: holidays/special occasions only Patient Tobacco Use Status: Former Tobacco user Years Smoked: 5 +/- Advance Directives: No service: No Current occupational status: retired Physical Exam ED Vital Signs: Vital Signs - 24 hr 05/17/23 12:51 Temperature 98.8 F Pulse Rate 68 Respiratory Rate 19 Blood Pressure 187/104 H Pulse Oximetry 97 Oxygen Delivery Method Room Air BMI result Body Mass Index 39.0 Const General: cooperative, healthy appearing and no acute distress Orientation/consciousness: patient oriented x3 Limitations: no limitations HENMT Head: Yes normal to inspection and Yes atraumatic Ears: hearing grossly normal bilaterally General nose exam: Normal external nose present Face and sinus: Yes normal facial exam Eyes General: appearance normal, both eyes and all related structures EOM: EOMs intact bilaterally Neck Neck: Yes normal visual inspection and Yes no meningeal signs Resp Effort & Inspection: normal respiratory effort and no respiratory distress Auscultation: clear to auscultation bilaterally Cardio Rate: regular rate Skin Other: + appropriately healing wound to left medial malleolus, circular with irregular edges. No surrounding erythema, fluctuance/induration, drainage or swelling. Nontender. Neurovascular intact distally. No pitting edema or calf tenderness. Rashes: no rashes Neuro General: patient oriented x3, tone normal and no meningeal signs Cranial nerves: Yes CN's II-XII intact bilaterally Gait exam (Neuro): Normal gait present Extrem General: Yes normal to inspection Course Course Course Narrative: This is an RME: Additional HPI, ROS, PE not included below will be deferred to primary provider. This is a [id number]-male, with a hx of DM, PE on Eliquis, HTN, cardiomyopathy, presenting to the ER with a complaints of chronic wound. Patient has been seen here multiple times, last seen May 09 for wound on his left lower leg. He was told to follow-up with wound care. He is unable to see them until the end of the month and patient is concerned to wait this long. Medial aspect of left ankle circular area with irregular edges, no surrounding erythema exudates, chronic venous stasis changes noted to LE. BP elevated, pt afebrile Plan: Basic labs, further ER eval ordered -no leukocytosis. +mild JUANCARLOS with creatinine of 1.52 >> will give 1 L IVF and repeat -1900--repeat creatinine 1.41, improved after IVF. Plan for discharge home and recommended close PCP follow-up as well as wound care Results discussed with patient including worrisome signs and symptoms and strict return precautions, and when to return to the emergency department. They verbalized understanding and feel safe for discharge at this time. Medications Administered Discontinued Medications Generic Name Dose Route Start Last Admin Trade Name Freq PRN Reason Stop Dose Admin Sodium Chloride 1,000 mls @ 999 mls/hr 05/17/23 15:30 05/17/23 17:27 Ns IV 05/17/23 16:30 Infused .Q1H1M EL Infusion Medical Decision Making Medical Decision Making [facility] Narrative: 77 yo male with history of DM, PE on Eliquis, HTN, cardiomyopathy, presenting to the ED complaining of persistent nonhealing left lower leg wound > 1 month. On exam vital signs stable, NAD, nontoxic appearing, physical exam as above with appropriately healing diabetic wound. No evidence of infection or abscess at this time. Low suspicion for osteomyelitis, DVT, cellulitis. Labs ordered in triage Please refer to course for remaining clinical decision making, interpretation of labs/imaging results, and discussions with consultants and/or family members. Differential Diagnosis Differential Diagnoses: The differential diagnosis associated with the presentation includes As above Admission/Observation Consideration of admission/observation: Escalation of care including admission/observation considered Lab Data MDM Lab Attestation statement: I reviewed the patient's lab results. 05/17/23 13:30 05/17/23 18:37 Labs: Lab Results 05/17/23 05/17/23 Range/Units 13:30 18:37 WBC 4.8 (4.8-10.8) X10*3/uL RBC 4.96 (4.60-5.80) X10*6/uL Hgb 13.8 L (14.0-18.0) g/dl Hct 43.6 (42.0-52.0) % MCV 87.9 (80.0-98.0) fL MCH 27.8 (27.0-33.0) pg MCHC 31.7 (31.0-36.0) g/dl RDW 14.4 (11.0-16.0) % Plt Count 210 (160-400) X10*3/uL MPV 10.7 (9.4-12.4) fL Immature Gran % (Auto) 0.6 H (0.0-0.4) % Neut % (Auto) 55.4 (45-73) % Lymph % (Auto) 33.7 (20-40) % [place] % (Auto) 5.9 (2-11) % Eos % (Auto) 3.6 (0-4) % Baso % (Auto) 0.8 (0-2) % Lymph # (Auto) 1.6 (1.2-4.9) X10*3/uL [place] # (Auto) 0.3 (0.1-1.2) X10*3/uL Eos # (Auto) 0.2 (0.0-0.4) X10*3/uL Baso # (Auto) 0.0 (0.0-0.2) X10*3/uL Abs Immat Gran (auto) 0.03 (0.00-0.03) X10*3/uL Absolute Neuts (auto) 2.6 (2.0-8.3) x10*3/uL Absolute Nucleated RBC 0.000 (0.0-0.012) X10*3/uL Nucleated RBC % (auto) 0.0 (0.0-0.2) /100WBC Sodium 141 142 (135-145) mmol/L Potassium 4.2 4.2 (3.3-5.1) mmol/L Chloride 103 105 (96-108) mmol/L Carbon Dioxide 30 H 27 (22-29) mmol/L Anion Gap 12 14 (12-20) BUN 10 10 (9-16) mg/dL Creatinine 1.52 H 1.41 H (0.5-1.4) mg/dL Estim Creat Clear Calc 54.4 58.7 Estimated GFR 45 49 Random Glucose 187 H 119 H (60-115) mg/dL Calcium 9.3 9.6 (8.4-10.2) mg/dL Total Bilirubin 0.7 (0.0-1.0) mg/dL Direct Bilirubin 0.2 (0.0-0.5) mg/dL AST 37 (5-37) U/L ALT 17 (0-40) U/L Alkaline Phosphatase 72 (39-117) U/L Total Protein 7.7 (6.5-8.0) g/dL Albumin 4.3 (3.5-5.0) g/dL Radiology Impression Discussion of test interpretation with radiology: I have reviewed the radiologist's reading. External Record Review External record reviewed: Inpatient record, Office record, Outpatient record, Prior outpatient labs, Prior outpatient radiology, Primary care record and Outside ED record Tests considered The following testing was considered but not selected: As above Prescription Management I considered prescription management with: Pain Medication and Antibiotic Chronic Conditions Patient?s care impacted by: Diabetes Discharge Plan Discharge Clinical Impression: Leg wound, left, JUANCARLOS (acute kidney injury) Patient Disposition: Home, Self-Care Instructions: Acute Kidney Injury (DC), Chronic Wounds (ED) Additional Instructions: Your wound is appropriately healing YOU NEED TO FOLLOW-UP WITH WOUND CARE Your kidney function was elevated today Please have close follow-up with her primary care doctor Prescriptions: No Action duloxetine 20 mg capsule,delayed release(DR/EC) 1 cap PO DAILY cholecalciferol (vitamin D3) 50 mcg (2,000 unit) tablet 1 tab PO DAILY metoprolol succinate [Toprol XL] 25 mg tablet extended release 24 hr 25 mg PO DAILY Qty: 30 0RF isosorbide mononitrate 30 mg Tablet Extended Release 24 Hr 30 mg PO DAILY Qty: 30 0RF Protocol: Hold for SBP< HOLD for SBP < : 90 glipizide 5 mg tablet 5 mg PO BID levothyroxine 150 mcg tablet 150 mcg PO DAILY loratadine 10 mg tablet 10 mg PO DAILY metformin 500 mg tablet 1,000 mg PO BID tamsulosin 0.4 mg capsule 0.4 mg PO BEDTIME amoxicillin-pot clavulanate 875-125 mg tablet 1 tab PO BID Qty: 14 0RF bacitracin zinc 500 unit/gram ointment 1 appl topical Q8H Qty: 28 0RF Eliquis 5 mg tablet 5 mg PO BID Referrals: [facility] [place], [place] Wound Care Management [Provider Group] Zeeshan Wang MD [Primary Care Provider] -
[2023-05-17 13:51] LABS: MANUAL DIFF FLAG NO
[2023-05-17 13:54] LABS: Basophils Percent Auto 0.8 % (0-2); Eosinophils Absolute Auto 0.2 X10*3/uL (0.0-0.4); Eosinophils Percent Auto 3.6 % (0-4); Hematocrit 43.6 % (42.0-52.0); Hemoglobin 13.8 g/dl (14.0-18.0); Imm Gran Abs Auto 0.03 X10*3/uL (0.00-0.03); Imm Gran Pct Auto 0.6 % (0.0-0.4); Lymphocytes Absolute Auto 1.6 X10*3/uL (1.2-4.9); Lymphocytes Percent Auto 33.7 % (20-40); Mean Corpuscular HGB Conc 31.7 g/dl (31.0-36.0); Mean Corpuscular Hemoglobin 27.8 pg (27.0-33.0); Mean Corpuscular Volume 87.9 fL (80.0-98.0); Mean Platelet Volume 10.7 fL (9.4-12.4); Monocytes Absolute Auto 0.3 X10*3/uL (0.1-1.2); Monocytes Percent Auto 5.9 % (2-11); Neutrophils Absolute Auto 2.6 x10*3/uL (2.0-8.3); Neutrophils Percent Auto 55.4 % (45-73); Platelet Count 210 X10*3/uL (160-400); Red Blood Count 4.96 X10*6/uL (4.60-5.80); Red Cell Distribution Width 14.4 % (11.0-16.0); White Blood Count 4.8 X10*3/uL (4.8-10.8)
[2023-05-17 14:08] LABS: Alanine Aminotransferase 17 U/L (0-40); Albumin Level 4.3 g/dL (3.5-5.0); Alkaline Phosphatase 72 U/L (39-117); Anion Gap 12 (12-20); Aspartate Amino Transferase 37 U/L (5-37); Bilirubin Direct 0.2 mg/dL (0.0-0.5); Bilirubin Total 0.7 mg/dL (0.0-1.0); Blood Urea Nitrogen 10 mg/dL (9-16); Calcium 9.3 mg/dL (8.4-10.2); Carbon Dioxide 30 mmol/L (22-29); Chloride 103 mmol/L (96-108); Creatinine Clr Calc Pharmacy 54.4; Estimated Glomerular Filt Rate 45; Glucose Random 187 mg/dL (60-115); Potassium 4.2 mmol/L (3.3-5.1); Sodium 141 mmol/L (135-145); Total Protein 7.7 g/dL (6.5-8.0)
[2023-05-17] MEDS: 0.9 % Sodium Chloride 1,000 ML 999 ML IV (15:48)
--- NOTE | 2023-05-17 15:56 | PC.NURSE ---
20g Iv placed in right lateral AC 1L NS infusing per order- venous stasis ulcer cleansed with NS followed by xeroform, nonstick, kerlix and tape.
[2023-05-17 18:53] LABS: Anion Gap 14 (12-20); Blood Urea Nitrogen 10 mg/dL (9-16); Calcium 9.6 mg/dL (8.4-10.2); Carbon Dioxide 27 mmol/L (22-29); Chloride 105 mmol/L (96-108); Creatinine Clr Calc Pharmacy 58.7; Estimated Glomerular Filt Rate 49; Glucose Random 119 mg/dL (60-115); Potassium 4.2 mmol/L (3.3-5.1); Sodium 142 mmol/L (135-145)
== END 2023-05-17 20:01 | disposition home or self-care (01) ==
PROVIDERS: Physician Assistant; Physician Assistant Medical; Emergency Provider Student in an Organized Health Care Education/Training Program; PCP Internal Medicine
DX: S81.802D Unspecified open wound, left lower leg, subsequent encounter (principal); X58.XXXD Exposure to other specified factors, subsequent encounter; N17.9 Acute kidney failure, unspecified; E11.9 Type 2 diabetes mellitus without complications; I10 Essential (primary) hypertension; Z86.718 Personal history of other venous thrombosis and embolism; Z79.01 Long term (current) use of anticoagulants; Z79.84 Long term (current) use of oral hypoglycemic drugs; Z79.899 Other long term (current) drug therapy; Z87.891 Personal history of nicotine dependence
CPT/HCPCS: 36415; 80048; 80076; 85025; 96360; 96361; 99283; 99284

== ENCOUNTER 2023-05-23 14:11 | Outpatient (RCR) | payer OTHER, SELFPAY | END 2023-06-29 14:46 | disposition home or self-care (01) | LOC: HO.WCC 14:11 | PROVIDERS: PCP Internal Medicine; Visit Provider Surgery | DX: I87.312 Chronic venous hypertension (idiopathic) with ulcer of left lower extremity (principal); L97.322 Non-pressure chronic ulcer of left ankle with fat layer exposed; Z79.84 Long term (current) use of oral hypoglycemic drugs; Z79.01 Long term (current) use of anticoagulants; Z79.899 Other long term (current) drug therapy; Z86.718 Personal history of other venous thrombosis and embolism | CPT/HCPCS: 11042; 97597; 99213 ==

== ENCOUNTER 2025-03-31 15:54 | Outpatient (AMB) | payer OTHER, SELFPAY ==
--- NOTE | 2025-03-31 16:27 | HO.NEPHOV_ITS ---
Vital Signs 03/31/25 16:30 Height 5 ft 10 in Weight 267 lb 2 oz BMI 38.3 BP 130/90 H Blood Pressure Location Lt brachial Position Sitting Pulse 68 Pulse Source Pulse Oximeter Pulse Oximetry (%) 97 Oxygen Delivery Method Room Air Intake Visit Reasons: ENP: CKD STG 2-# Not in service Soybean [employer]er Required: No Accompanied by: Self / Same As Patient Allergies No Known Allergies (No Known Allergies*) Allergy (Verified 03/31/25 16:30) HPI Comments Details: I had the pleasure of seeing Timothy in consultation for chronic kidney disease and hypertension. He is 79 years of age who has diabetes mellitus, hypertension, history of systolic congestive heart failure. He is on MAHESH inhibitor. His blood pressure is fairly well controlled. He is taking metformin for his diabetes mellitus. He does not check his blood sugar very regularly. He denies having retinopathy. He has history of BPH and is on medications. He has no history of any malignancies. He denies coronary artery disease, CVA, carotid stenosis or peripheral arterial disease. He does not have any epistaxis, photosensitivity, skin rashes, joint swellings, pedal edema, paroxysmal nocturnal dyspnea, orthopnea, hematuria, sensory neural hearing deficits. He has no family history of ESRD or renal transplantation. His serum creatinine has been close to 1.6. He did not have any specific new systemic complaints at the time of this office visit. [facility] Medical History (Updated 03/31/25 @ 16:39 by Hugo Freeman MD) Pain in both knees Memory loss Stage 2 chronic kidney disease Chronic systolic congestive heart failure Cardiomyopathy History of colon cancer Hypothyroidism Depression BPH (benign prostatic hyperplasia) Diabetes History of DVT (deep vein thrombosis) Ventricular dysfunction, right Hypertension Surgical History History of total knee arthroplasty History of partial colectomy H/O colonoscopy History of colon surgery H/O thyroidectomy S/P IVC filter Family History Mother Diabetes Other Hypertension Social History Household Members: Other Housing: Apartment Do you presently have visiting nurse or other home services: Yes Alcohol intake: current Alcohol intake frequency: holidays/special occasions only Patient Tobacco Use Status: Former Tobacco user Years Smoked: 5 +/- service: No Current occupational status: retired Review of Systems Const All systems reviewed & are unremarkable except as noted in HPI and below Physical Exam Vital Signs: Last Vital Signs Pulse 68 03/31/25 16:30 BP 130/90 H 03/31/25 16:30 Pulse Ox 97 03/31/25 16:30 Oxygen Delivery Method Room Air 03/31/25 16:30 BMI result Body Mass Index 38.3 Const General: comfortable and no acute distress Orientation/consciousness: patient oriented x3 HEENT Head: Yes normocephalic Mouth: Normal oral and palatal mucosa present Eyes EOM: EOMs intact bilaterally Neck Neck: Yes supple Resp Auscultation: clear to auscultation bilaterally Cardio Jugular venous distension: no JVD Rate: regular rate GI Palpation (GI): Soft to palpation Auscultation: normal bowel sounds General: Yes no CVA tenderness Back/Spine/Pelvis Back: no CVA tenderness Skin General skin exam: no rashes or lesions noted Neuro General: patient oriented x3 and moves all extremities Extrem General: Yes no pedal edema Assessment & Plan Assessment & Plan (1) Hypertension: Code(s): I10 - Essential (primary) hypertension Category: Medical Qualifiers: Hypertension type: primary hypertension Qualified Code(s): I10 - Essential (primary) hypertension (2) CKD stage 3a, GFR 45-59 ml/min: Code(s): N18.31 - Chronic kidney disease, stage 3a Category: Medical Plan 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 He is not known to have any significant proteinuria. He is a diabetic, but denies any retinopathy. He is not on SGLT2 inhibitor. He has chronic systolic heart failure. He has no diagnosis of amyloidosis. He has no history of hypercalcemia, new bone or back pain. He has BPH and is on medications. His CKD can also be contributed from his cardiac dysfunction. I have ordered a detail workup including imaging studies. He will need a follow-up echocardiogram. After reviewing all the data, I intend initiate him on Farxiga at the next office visit in addition to low-dose MAHESH inhibitor if he is able to tolerate them. He should avoid nonsteroidal anti-inflammatories and maintain good hydration. I would not make any medication changes at this visit but all these have been explained in detail. All questions were answered and follow-up appointment was given. Orders: Orders Electrolytes 1 Month N18.31 - Chronic kidney disease, stage 3a Calcium 1 Month N18.31 - Chronic kidney disease, stage 3a Blood Urea Nitrogen 1 Month N18.31 - Chronic kidney disease, stage 3a Creatinine 1 Month N18.31 - Chronic kidney disease, stage 3a Proteinase 3 PR3 Antibodies 1 Month N18.31 - Chronic kidney disease, stage 3a Myeloperoxidase Antibody 1 Month N18.31 - Chronic kidney disease, stage 3a Protein Creatinine Ratio, Ur 1 Month N18.31 - Chronic kidney disease, stage 3a Parathyroid Hormone Intact 1 Month I10 - Essential (primary) hypertension, N18.31 - Chronic kidney disease, stage 3a US renal BI 3 Weeks I10 - Essential (primary) hypertension, N18.31 - Chronic kidney disease, stage 3a Hepatitis B Core Antibody 1 Month N18.31 - Chronic kidney disease, stage 3a Hepatitis B Surface Antigen 1 Month N18.31 - Chronic kidney disease, stage 3a Immunofixation Pnl, Serum 1 Month N18.31 - Chronic kidney disease, stage 3a Phospholipase A2 Receptor Pnl 1 Month N18.31 - Chronic kidney disease, stage 3a UA and rflx microscopic 1 Month N18.31 - Chronic kidney disease, stage 3a Vitamin D 25-OH Total 1 Month I10 - Essential (primary) hypertension, N18.31 - Chronic kidney disease, stage 3a US renal doppler 3 Weeks I10 - Essential (primary) hypertension, N18.31 - Chronic kidney disease, stage 3a Coding Level of Care Code New Pt Level 4 (16705) Diagnoses Primary hypertension I10 Hypertension type: primary hypertension CKD stage 3a, GFR 45-59 ml/min N18.
--- NOTE | 2025-03-31 16:27 | HO.NEPHOV_ITS ---
Vital Signs 03/31/25 16:30 Height 5 ft 10 in Weight 267 lb 2 oz BMI 38.3 BP 130/90 H Blood Pressure Location Lt brachial Position Sitting Pulse 68 Pulse Source Pulse Oximeter Pulse Oximetry (%) 97 Oxygen Delivery Method Room Air Intake Visit Reasons: ENP: CKD STG 2-# Not in service Allergies No Known Allergies (No Known Allergies*) Allergy (Verified 03/31/25 16:30) PFSH Medical History (Updated 03/31/25 @ 16:39 by Hugo Freeman MD) Pain in both knees Memory loss Stage 2 chronic kidney disease Chronic systolic congestive heart failure Cardiomyopathy History of colon cancer Hypothyroidism Depression BPH (benign prostatic hyperplasia) Diabetes History of DVT (deep vein thrombosis) Ventricular dysfunction, right Hypertension Surgical History (Updated 03/30/25 @ 09:12 by Dhara Jacobson MA) History of total knee arthroplasty History of partial colectomy H/O colonoscopy History of colon surgery H/O thyroidectomy S/P IVC filter Family History Mother Diabetes Other Hypertension Social History Household Members: Other Housing: Apartment Do you presently have visiting nurse or other home services: Yes Alcohol intake: current Alcohol intake frequency: holidays/special occasions only Patient Tobacco Use Status: Former Tobacco user Years Smoked: 5 +/- service: No Current occupational status: retired Results Reviewed Nephrology Results: Hgb, (14.0-18.0) 13.8 g/dl L 05/17/23 WBC, (4.8-10.8) 4.8 X10*3/uL 05/17/23 Plt Count, (160-400) 210 X10*3/uL 05/17/23 Sodium, (135-145) 142 mmol/L 05/17/23 Potassium, (3.3-5.1) 4.2 mmol/L 05/17/23 Chloride, (96-108) 105 mmol/L 05/17/23 Carbon Dioxide, (22-29) 27 mmol/L 05/17/23 BUN, (9-16) 10 mg/dL 05/17/23 Creatinine, (0.5-1.4) 1.41 mg/dL H 09/14/23 Calcium, (8.4-10.2) 9.6 mg/dL 05/17/23 Assessment & Plan Assessment & Plan (1) CKD stage 3a, GFR 45-59 ml/min: Code(s): N18.31 - Chronic kidney disease, stage 3a Category: Medical (2) Hypertension: Code(s): I10 - Essential (primary) hypertension Category: Medical Qualifiers: Hypertension type: primary hypertension Qualified Code(s): I10 - Es sential (primary) hypertension (3) CKD stage 3a, GFR 45-59 ml/min: Code(s): N18.31 - Chronic kidney disease, stage 3a Category: Medical Orders: Orders Electrolytes 1 Month N18.31 - Chronic kidney disease, stage 3a Calcium 1 Month N18.31 - Chronic kidney disease, stage 3a Blood Urea Nitrogen 1 Month N18.31 - Chronic kidney disease, stage 3a Creatinine 1 Month N18.31 - Chronic kidney disease, stage 3a Proteinase 3 PR3 Antibodies 1 Month N18.31 - Chronic kidney disease, stage 3a Myeloperoxidase Antibody 1 Month N18.31 - Chronic kidney disease, stage 3a Protein Creatinine Ratio, Ur 1 Month N18.31 - Chronic kidney disease, stage 3a Parathyroid Hormone Intact 1 Month I10 - Essential (primary) hypertension, N18.31 - Chronic kidney disease, stage 3a US renal BI 3 Weeks I10 - Essential (primary) hypertension, N18.31 - Chronic kidney disease, stage 3a Hepatitis B Core Antibody 1 Month N18.31 - Chronic kidney disease, stage 3a Hepatitis B Surface Antigen 1 Month N18.31 - Chronic kidney disease, stage 3a Immunofixation Pnl, Serum 1 Month N18.31 - Chronic kidney disease, stage 3a Phospholipase A2 Receptor Pnl 1 Month N18.31 - Chronic kidney disease, stage 3a UA and rflx microscopic 1 Month N18.31 - Chronic kidney disease, stage 3a Vitamin D 25-OH Total 1 Month I10 - Essential (primary) hypertension, N18.31 - Chronic kidney disease, stage 3a US renal doppler 3 Weeks I10 - Essential (primary) hypertension, N18.31 - Chronic kidney disease, stage 3a Coding Level of Care Code New Pt Level 4 (36847) Diagnoses CKD stage 3a, GFR 45-59 ml/min N18.31 Primary hypertension I10 Hypertension type: primary hypertension
[2025-03-31 16:30] VITALS: BP 130/90; PULSE 68; O2SAT 97; BMI 38.3
--- OUTSIDE RECORDS SUMMARY | 2025-03-31 16:36 | XMS_ITS | Encounter Summary ---
Author Organization [facility] Address [address] [place] [address] Care Team Providers Care Concrete Pavement Installer Name Role Phone Zeeshan Wang MD Primary Care Provider [phone] Encounter Details Date Type Department Care Team (Late st Contact Info) Description 11/18/2024 Lab Requisition [facility] - Main Lab [address] [facility] [place] [address] Valente Coello PA [address] [place] [phone] Gross hematuria Social History Tobacco Use Types Packs/Day Years [...] PM EST Office Visit Internal Medicine - [place] [address] [place] [phone] Zeeshan Wang MD 175 [facility] [address] [place], [place] [phone] documented as of this encounter Procedures Procedure Name Priority Date/Time Associated Diagnosis Comments CULTURE URINE Routine 11/18/2024 2:30 PM EDT Gross hematuria documented in this encounter Results * (ABNORMAL) Culture urine (11/18/2024 2:30 PM EDT) Culture, Urine 10,000-49,000 CFU/mL Streptococcus beta-hemolytic Group B(A) 11/19/2024 2:19 PM EDT [facility] Comment: Susceptibility testing is not routinely performed for Beta Streptococcus isolates since these organisms are predictably sensitive to Penicillin. If the Patient is not responding, is allergic to Penicillin, or further therapeutic information is requir ed, please consult an Infectious Disease Specialist. Urine Urine specimen obtained by clean catch procedure / Unknown 11/18/2024 2:30 PM EDT 11/18/2024 6:04 PM EDT [facility] MICROBIOLOGY - GE NERAL ORDERABLES Final Result [facility] [address] [place] [address], documented in this encounter Visit Diagnoses Diagnosis Gross hematuria documented in this encounter Additional Health Concerns Infection Onset Date Last Indicated Resolved Time Respiratory Rule-Out 01/24/2025 01/24/2025 025 6:32 PM EDT COVID-19 Rule-Out 01/24/2025 01/24/2025 01/24/2025 6:32 PM EDT Parainfluenza Virus 01/24/2025 01/24/2025 documented as of this encounter Care Teams Concrete Pavement Installer Relationship Specialty Start Date End Date Zeeshan Wang MD [address] [address] PCP - General 12/11/22 documented as of this encounter
== END 2025-03-31 16:43 | disposition home or self-care (01) ==
LOC: HO.HKAS 15:55
PROVIDERS: PCP Internal Medicine; Referring Provider Internal Medicine; Visit Provider Internal Medicine Nephrology
DX: I10 Essential (primary) hypertension (principal); N18.31 Chronic kidney disease, stage 3a
CPT/HCPCS: 99204

== ENCOUNTER → 2025-03-31 15:54 | Outpatient (BNVA) | payer OTHER, SELFPAY | PROVIDERS: PCP Internal Medicine; Referring Provider Internal Medicine; Visit Provider Internal Medicine Nephrology | DX: N18.31 Chronic kidney disease, stage 3a (principal); I10 Essential (primary) hypertension | CPT/HCPCS: 99202 ==

== ENCOUNTER 2025-04-22 14:28 | Outpatient (REF) | payer OTHER, SELFPAY ==
--- OUTSIDE RECORDS SUMMARY | 2025-04-22 15:28 | XMS_ITS | Encounter Summary ---
Author Organization [facility] Address [address] [place] [address] Care Team Providers Care Test Center Administrator Name Role Phone Zeeshan Wang MD Primary Care Provider [phone] Encounter Details Date Type Department Care Team (Late st Contact Info) Description 11/18/[address] [facility] - Main Lab [address] [facility] [place] [address] Valente Coello PA [address] [place] [phone] Gross hematuria Social History Tobacco Use Types [...] PM EST Office Visit Internal Medicine - [place] [address] [place] [phone] Zeeshan Wang MD 175 [facility] [address] [place], [place] [phone] documented as of this encounter Procedures Procedure Name Priority Date/Time Associated Diagnosis Comments CULTURE URINE Routine 11/18/2024 2:30 PM EDT Gross hematuria documented in this encounter Results * (ABNORMAL) Culture urine (11/18/2024 2:30 PM EDT) Culture, Urine 10,000-49,000 CFU/mL Streptococcus beta-hemolytic Group B(A) 11/19/2024 2:19 PM EDT [facility] Comment: Susceptibility testing is not [...] MICROBIOLOGY - GE NERAL ORDERABLES Final Result [facility] [address] [place] [address], documented in this encounter Visit Diagnoses Diagnosis Gross hematuria documented in this encounter Additional Health Concerns Infection Onset Date Last Indicated Resolved Time Respiratory Rule-Out 01/24/2025 01/24/2025 025 6:32 PM EDT COVID-19 Rule-Out 01/24/2025 01/24/2025 01/24/2025 6:32 PM EDT Parainfluenza Virus 01/24/2025 01/24/2025 documented as of this encounter Care Teams Test Center Administrator Relationship Specialty Start Date End Date Zeeshan Wang MD [address] [address] PCP - General 12/11/22 documented as of this encounter
[2025-04-22 18:28] LABS: Appearance Urine Clear; Glucose Urine UA Negative (Negative); PH 6.0 (5.0-9.0); Specific Gravity - Urine 1.015 (1.005-1.025); UMIC TRIGGER UA YES
[2025-04-22 18:45] LABS: Anion Gap 15 (12-20); Blood Urea Nitrogen 13 mg/dL (9-16); Calcium 9.3 mg/dL (8.4-10.2); Carbon Dioxide 28 mmol/L (22-29); Chloride 99 mmol/L (96-108); Estimated Glomerular Filt Rate 53; Potassium 4.1 mmol/L (3.3-5.1); Sodium 138 mmol/L (135-145)
[2025-04-22 18:49] LABS: Protein/Creatinine Ratio, Ur 0.78 (<0.2); Total Protein Urine Random 92 mg/dL (<12)
[2025-04-22 18:55] LABS: Parathyroid Hormone Intact 115.1 pg/mL (8.7-77.1)
[2025-04-23 08:23] LABS: HBc Num1 0.08 S/CO (0.00-0.79); HBsAGNum1 0.54 S/CO (0.00-0.99); Hepatitis B Surface Antigen Negative (Negative)
[2025-04-23 14:33] LABS: Proteinase 3 PR3 Antibodies <1.0 AI
[2025-04-28 21:48] LABS: Phospholipase A2 IgG ELISA <4 RU/mL; Phospholipase A2 IgG IFA NEGATIVE (NEGATIVE)
== END 2025-04-22 14:29 | disposition home or self-care (01) ==
LOC: HO.HKASLDS 14:28
PROVIDERS: Visit Provider Internal Medicine Nephrology
DX: Z11.59 Encounter for screening for other viral diseases (principal); Z01.84 Encounter for antibody response examination; I12.9 Hypertensive chronic kidney disease with stage 1 through stage 4 chronic kidney disease, or unspecified chronic kidney disease; N18.31 Chronic kidney disease, stage 3a
CPT/HCPCS: 36415; 80051; 81001; 82306; 82310; 82565; 82570; 82784; 83520; 83970; 84156; 84520; 86021; 86255; 86334; 86704; 87340

== ENCOUNTER 2025-04-24 08:04 | Outpatient (REF) | payer OTHER, SELFPAY ==
--- NOTE | ~2025-04-24 | US_ITS ---
CLINICAL HISTORY: N18.31 - Chronic kidney disease, stage 3a --- Additional Notes or Special Instructions: Needs to R O renal artery stenosis US Renal with Doppler Comparison: None provided Findings: Right kidney normal size and echotexture, 9.3 cm length. No hydronephrosis. Normal color Doppler. Resistive indices within normal limits. Left kidney normal size and echotexture, 10 cm length. No hydronephrosis. Normal color Doppler. Resistive indices within normal limits. Renal veins are patent. Aorta is patent. IMPRESSION: Unremarkable duplex evaluation of the kidneys. No findings of renal artery stenosis This document has been electronically signed by: Telly Martinez MD on 04/25/2025 09:42:47
--- OUTSIDE RECORDS SUMMARY | 2025-04-24 08:08 | XMS_ITS | Encounter Summary ---
Author Organization [facility] Address [address] [place] [address] Care Team Providers Care Mechanical Engineering Technician Name Role Phone Zeeshan Wang MD Primary Care Provider [phone] Encounter Details Date Type Department Care Team (Late st Contact Info) Description 11/18/2024 Lab Requisition [facility] - Main Lab [address] [facility] [place] [address] Valente Coello PA [address] [place] [phone] Gross hematuria Social History Tobacco Use Types [...] Care Team (Late st Contact Info) Description 04/30/2025 11:45 AM EDT Office Visit Orthopedics - [place] [address] [place] [address] Rian Mast PA [address] [place], [place] 08/18/2025 1:15 PM EST Office Visit Internal Medicine - [place] [address] [place] [address] Zeeshan Wang MD [address] [place] [phone] documented as of this encounter Procedures Procedure Name Priority Date/Time Associated Diagnosis Comments CULTURE URINE Routine 11/18/2024 2:30 PM EDT Gross hematuria documented in this encounter Results * (ABNORMAL) Culture urine (11/18/2024 2:30 PM EDT) Culture, Urine 10,000-49,000 CFU/mL Streptococcus beta-hemolytic Group B(A) 11/19/2024 2:19 PM EDT [facility] Comment: Susceptibility testing is not routinely [...] MICROBIOLOGY - GE NERAL ORDERABLES Final Result [facility] [address] [place] [address], documented in this encounter Visit Diagnoses Diagnosis Gross hematuria documented in this encounter Additional Health Concerns Infection Onset Date Last Indicated Resolved Time Respiratory Rule-Out 01/24/2025 01/24/2025 025 6:32 PM EDT COVID-19 Rule-Out 01/24/2025 01/24/2025 01/24/2025 6:32 PM EDT Parainfluenza Virus 01/24/2025 01/24/2025 documented as of this encounter Care Teams Mechanical Engineering Technician Relationship Specialty Start Date End Date Zeeshan Wang MD [address] [place] [address] (work) PCP - General 12/11/22 documented as of this encounter
== END 2025-04-24 08:05 | disposition home or self-care (01) ==
LOC: HO.US 08:04
PROVIDERS: PCP Internal Medicine; Visit Provider Internal Medicine Nephrology
DX: I12.9 Hypertensive chronic kidney disease with stage 1 through stage 4 chronic kidney disease, or unspecified chronic kidney disease (principal); N18.31 Chronic kidney disease, stage 3a
CPT/HCPCS: 76775; 93975

== ENCOUNTER → 2025-04-24 08:07 | Outpatient (BNV) | payer OTHER, SELFPAY | PROVIDERS: PCP Internal Medicine; Visit Provider Radiology Diagnostic Radiology | DX: N18.31 Chronic kidney disease, stage 3a (principal) | CPT/HCPCS: 93975 ==

== ENCOUNTER 2025-04-30 14:11 | Outpatient (AMB) | payer OTHER, SELFPAY ==
--- OUTSIDE RECORDS SUMMARY | 2024-06-27 13:53 | XMS_ITS | Encounter Summary ---
Author Organization [facility] Address [address] [place] [address] Care Team Providers Care Torch Brazer Name Role Phone Zeeshan Wang MD Primary Care Provider [phone] Encounter Details Date Type Department Care Team (Latest Contact Info) Description 06/27/2024 1:53 PM EDT Hospital Encounter TH HISTORIC ENCOUNTERS [facility] CONVERSION ONLY Zeeshan Wang MD [address] [place] [address] Spondylosis without myelopathy or radiculopathy, lumbar region Social History Tobacco Use Types Packs/Day Years Used Date Smoking Tobacco: Former Cigarettes 1 36 0 09/03/1966 - 09/03/2002 Smokeless Tobacco: Never Alcohol Use Standard Drinks/Week Comments No 0 (1 standard drink = 0.6 oz pur e alcohol) Sex and Gender Information Value Date Recorded Sex Assigned at Not on file Legal Sex Male 1:10 PM EST Gender Identity Not on file Sexual Orientation Not on file documented as of this encounter Plan of Treatment Upcoming Encounters Date Type Department Care Team (Late st Contact Info) Description 08/18/2025 1:15 PM EST Office Visit Internal Medicine - [place] [address] [place] [id number] Zeeshan Wang MD [address] [place] [address] documented as of this encounter Procedures Procedure Name Priority Date/Time Associated Diagnosis Comments CR SPINE LUMBAR W OBLIQ MIN 4V Routine 06/27/2024 3:17 PM EDT Spondylosis without myelopathy or radiculopathy, lumbar region documented in this encounter Results * CR SPINE LUMBAR W OBLIQ MIN 4V (06/27/2024 3:17 PM EDT) Anatomical Region Laterality Modality Radiographic Alexandra ging 06/27/2024 1:58 PM EDT Narrative 06/27/2024 3:[address] [facility] Diagnostic Imaging Department [address] [place] [id number] Patient: ANDREWTIMOTHY./Age/Sex: 1945 - 79 - M Unit#: [id number] Location/Status: SPDIGEN/REG CLI Mnemonic/Ordering Site: SPINLUMWOB/SPDI Ordering Physician: ZEESHAN WANG MD CR Spine Lumbar W Obliq min 4v - 06/27/24 - 0076 Report Status:Signed EXAMINATION: LUMBAR SPINE CLINICAL INFORMATION: Back pain for 6 months COMPARISON: None. TECHNIQUE: Frontal, lateral, both oblique views, coned down view lumbosacral junction on the lateral projection FINDINGS: There are 5 intact lumbar-type vertebrae in normal alignment. No significant disc narrowing. No significant volume loss. Mild marginal osteophytes. The canal appears relatively narrow length developmental basis. The pedicles appear intact. There is some facet disease at L4/L5 and L5/S1. There is no pars defect demonstrated. There is a suggestion of some foraminal narrowing at L3/L4, L4/L5 and L5/S1. Faint arterial calcification. Nonobstructive gas pattern. IMPRESSION: No acute abnormality. There are some degenerative changes. Dictating Physician: Ed HILL BRET MD Electronically Signed by: Ed HILL BRET MD Dic Date/Time: 06/27/241513 Sign date/Time: 06/27/241516 Procedure Note David Hill MD - 07/05/2024 [facility] Diagnostic Imaging Department [address] [place] [id number] Patient: PEDRO MORALESAYE Castano./Age/Sex: 1945 - 79 - M Unit#: [id number] Location/Status: SPDIGEN/REG CLI Mnemonic/Ordering Site: SPINLUMWOB/SPDI Ordering Physician: ZEESHAN WANG MD CR Spine Lumbar W Obliq min 4v - 06/27/24 - 1416 Report Status:Signed EXAMINATION: LUMBAR SPINE CLINICAL INFORMATION: Back pain for 6 months COMPARISON: None. TECHNIQUE: Frontal, lateral, both oblique views, coned down view lumbosacral junctionon the lateral projection FINDINGS: There are 5 intact lumbar-type vertebrae in normal alignment. Nosignificant disc narrowing. No significant volume loss. Mild marginal osteophytes. The canal appears relatively narrow length developmental basis. Thepedicles appear intact. There is some facet disease at L4/L5 and L5/S1. There is nopars defect demonstrated. There is a suggestion of some foraminal narrowing at L3/L4, L4/L5 andL5/S1. Faint arterial calcification. Nonobstructive gas pattern. IMPRESSION: No acute abnormality. There are some degenerative changes. Dictating Physician: Ed HILL BRET MD Electronically Signed by: Ed HILL BRET MD Dic Date/Time: 06/27/24 1514 Sign date/Time: 06/27/24 1517 Zeeshan Wang MD IMG XR PROCEDURES Final Result documented in this encounter Visit Diagnoses Diagnosis Spondylosis without myelopathy or radiculopathy, lumbar region documented in this encounter Additional Health Concerns Infection Onset Date Last Indicated Resolved Time Respiratory Rule-Out 01/24/2025 01/24/2025 025 6:32 PM EDT COVID-19 Rule-Out 01/24/2025 01/24/2025 01/24/2025 6:32 PM EDT Parainfluenza Virus 01/24/2025 01/24/2025 documented as of this encounter Care Teams Torch Brazer Relationship Specialty Start Date End Date Zeeshan Wang MD [address] [place] [address] PCP - General 12/11/22 documented as of this encounter
--- NOTE | 2025-04-30 14:43 | HO.NEPHOV ---
Vital Signs 04/30/25 14:49 Height 5 ft 10 in Weight 265 lb 6 oz BMI 38.1 BP 122/92 H Blood Pressure Location Lt brachial Position Sitting Pulse 80 Pulse Source Pulse Oximeter Pulse Oximetry (%) 95 Oxygen Delivery Method Room Air Intake Visit Reasons: 1mon f/u w/labs-Conf Diesel Truck Mechanic Required: Yes Diesel Truck Mechanic Language: Finishing Machine Tender Services: Diesel Truck Mechanic Present Diesel Truck Mechanic Name: Rahul [id number] Information Interpreted: clinical only Accompanied by: Self / Same As Patient Allergies No Known Allergies (No Known Allergies*) Allergy (Verified 04/30/25 14:49) HPI Comments Details: Timothy was seen in F/U for chronic kidney disease and hypertension. He is 80 years of age who has diabetes mellitus, hypertension, history of systolic congestive heart failure. He is not on MAHESH inhibitor/ARB. His blood pressure is fairly well controlled. He is taking metformin for his diabetes mellitus. He does not check his blood sugar very regularly. He denies having retinopathy. He has history of BPH and is on medications. He has no history of any malignancies. He denies coronary artery disease, CVA, carotid stenosis or peripheral arterial disease. He does not have any epistaxis, photosensitivity, skin rashes, joint swellings, pedal edema, paroxysmal nocturnal dyspnea, orthopnea, hematuria, sensory neural hearing deficits. He has no family history of ESRD or renal transplantation. His serum creatinine is 1.2. He did not have any specific new systemic complaints at the time of this office visit. [facility] Medical History (Updated 04/30/25 @ 15:04 by Hugo Freeman MD) Pain in both knees Memory loss Stage 2 chronic kidney disease Chronic systolic congestive heart failure Cardiomyopathy History of colon cancer Hypothyroidism Depression BPH (benign prostatic hyperplasia) Diabetes History of DVT (deep vein thrombosis) Ventricular dysfunction, right Hypertension Surgical History History of total knee arthroplasty History of partial colectomy H/O colonoscopy History of colon surgery H/O thyroidectomy S/P IVC filter Family History Mother Diabetes Other Hypertension Social History Household Members: Other Housing: Apartment Do you presently have visiting nurse or other home services: Yes Alcohol intake: current Alcohol intake frequency: holidays/special occasions only Patient Tobacco Use Status: Former Tobacco user Years Smoked: 5 +/- service: No Current occupational status: retired Review of Systems Const All systems reviewed & are unremarkable except as noted in HPI and below Physical Exam Vital Signs: Last Vital Signs Pulse 80 04/30/25 14:49 BP 122/92 H 04/30/25 14:49 Pulse Ox 95 04/30/25 14:49 Oxygen Delivery Method Room Air 04/30/25 14:49 BMI result Body Mass Index 38.1 Const General: comfortable and no acute distress Orientation/consciousness: patient oriented x3 HEENT Head: Yes normocephalic Mouth: Normal oral and palatal mucosa present Eyes EOM: EOMs intact bilaterally Neck Neck: Yes supple Resp Auscultation: clear to auscultation bilaterally Cardio Jugular venous distension: no JVD Rate: regular rate GI Palpation (GI): Soft to palpation Auscultation: normal bowel sounds General: Yes no CVA tenderness Back/Spine/Pelvis Back: no CVA tenderness Skin General skin exam: no rashes or lesions noted Neuro General: patient oriented x3 and moves all extremities Extrem General: Yes no pedal edema Results Reviewed Nephrology Results: Hgb, (14.0-18.0) 13.8 g/dl L 05/17/23 WBC, (4.8-10.8) 4.8 X10*3/uL 05/17/23 Plt Count, (160-400) 210 X10*3/uL 05/17/23 Sodium, (135-145) 138 mmol/L 04/22/25 Potassium, (3.3-5.1) 4.1 mmol/L 04/22/25 Chloride, (96-108) 99 mmol/L 04/22/25 Carbon Dioxide, (22-29) 28 mmol/L 04/22/25 BUN, (9-16) 13 mg/dL 04/22/25 Creatinine, (0.5-1.4) 1.31 mg/dL 04/22/25 Calcium, (8.4-10.2) 9.3 mg/dL 04/22/25 PTH Intact, (8.7-77.1) 115.1 pg/mL H 04/22/25 Urine Protein, (Neg-Trace) 100 (2+) mg/dL H 04/22/25 Urine Creatinine 118.14 mg/dL 04/22/25 Protein/Creatinin Ratio, (<0.2) 0.78 H 04/22/25 Renal US 04/25/25 Assessment & Plan Assessment & Plan (1) Hypertension: Code(s): I10 - Essential (primary) hypertension Category: Medical Qualifiers: Hypertension type: primary hypertension Qualified Code(s): I10 - Essential (primary) hypertension (2) CKD stage 3a, GFR 45-59 ml/min: Code(s): N18.31 - Chronic kidney disease, stage 3a Category: Medical (3) Proteinuria: Code(s): R80.9 - Proteinuria, unspecified Category: Medical Qualifiers: Proteinuria type: other Qualified Code(s): R80.8 - Other proteinuria Plan 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 He is known to have proteinuria. He is a diabetic, but denies any retinopathy. He is not on SGLT2 inhibitor. He has chronic systolic heart failure. He has no diagnosis of amyloidosis. He has no history of hypercalcemia, new bone or back pain. He has BPH and is on medications. His CKD can also be contributed from his cardiac dysfunction. He will need a follow-up echocardiogram. I intend initiate him on Farxiga at the next office visit in addition to low-dose MAHESH inhibitor if he is able to tolerate them. He should avoid nonsteroidal anti-inflammatories and maintain good hydration. I would not make any medication changes at this visit but all these have been explained in detail. All questions were answered and follow-up appointment was given. Orders: Orders Protein Creatinine Ratio, Ur 3 Months I10 - Essential (primary) hypertension, N18.31 - Chronic kidney disease, stage 3a, R80.9 - Proteinuria, unspecified Blood Urea Nitrogen 3 Months I10 - Essential (primary) hypertension, N18.31 - Chronic kidney disease, stage 3a, R80.9 - Proteinuria, unspecified Electrolytes 3 Months I10 - Essential (primary) hypertension, N18.31 - Chronic kidney disease, stage 3a, R80.9 - Proteinuria, unspecified Creatinine 3 Months I10 - Essential (primary) hypertension, N18.31 - Chronic kidney disease, stage 3a, R80.9 - Proteinuria, unspecified Coding Level of Care Code Est Pt Level 4 (38331) Diagnoses Primary hypertension I10 Hypertension type: primary hypertension CKD stage 3a, GFR 45-59 ml/min N18.31 Other proteinuria R80.8 Proteinuria type: other
[2025-04-30 14:49] VITALS: BP 122/92; PULSE 80; O2SAT 95; BMI 38.1
--- OUTSIDE RECORDS SUMMARY | 2025-04-30 14:56 | XMS_ITS | Encounter Summary ---
Author Organization [facility] Address [address] [place] [address] Care Team Providers Care Audio Visual Director Name Role Phone Zeeshan Wang MD Primary Care Provider [phone] Encounter Details Date Type Department Care Team (Late Contact Info) Description 09/29/2024 Lab Requisition [facility] - Main Lab [address] [facility] [place] [address] Valente Coello PA [address] [place] [address] Testicular hypofunction Social History Tobacco Use Types Packs/Day Years [...] Encounters Date Type Department Care Team (Late Contact Info) Description 08/18/2025 1:15 PM EST Office Visit Internal Medicine - [place] [address] [facility] [address] [place] [address] Zeeshan Wang MD [address] [place] [address] documented as of this encounter Procedures Procedure Name Priority Date/Time Associated Diagnosis Comments CBC WITH AUTO DIFFERENTIAL Routine 09/29/2024 12:56 PM EST Testicular hypofunction CBC AND DIFFERENTIAL Routine 09/29/2024 12:56 PM EST Testicular hypofunction documented in this encounter Results * (ABNORMAL) CBC auto differential (09/29/2024 12:56 PM EST) WBC 3.4(L) 4.8 - 10.8 K/mcL LAB HEMETOLOGY METHOD 09/29/2024 7:19 PM [facility] RBC 5.40 4.50 - 5.50 M/mcL LAB HEMETOLOGY METHOD 09/29/2024 7:19 PM [facility] Hemoglobin 14.0 13.5 - 17.5 g/dL LAB HEMETOLOGY METHOD 09/29/2024 7:19 PM [facility] Hematocrit 46.4 42.0 - 54.0 % LAB HEMETOLOGY METHOD 09/29/2024 7:19 PM [facility] MCV 86.6 79.0 - 98.0 FL LAB HEMETOLOGY METHOD 09/29/2024 7:19 PM [facility] MCH 26.1(L) 27.0 - 32.0 pcg LAB HEMETOLOGY METHOD 09/29/2024 7:19 PM [facility] MCHC 30.2(L) 32.0 - 37.0 g/dL LAB HEMETOLOGY METHOD 09/29/2024 7:19 PM [facility] RDW 15.6(H) 11.0 - 15.0 % LAB HEMETOLOGY METHOD 09/29/2024 7:19 PM [facility] Platelets 182 130 - 400 K/mcL LAB HEMETOLOGY METHOD 09/29/2024 7:19 PM [facility] MPV 11.3(H) 7.0 - 11.0 FL LAB HEMETOLOGY METHOD 09/29/2024 7:19 PM [facility] NRBC 0.0 <1.0 % LAB HEMETOLOGY METHOD 09/29/2024 7:19 PM [facility] NRBC Absolute 0.00 <0.10 K/mcL LAB HEMETOLOGY METHOD 09/29/2024 7:19 PM [facility] Neutrophils Relative 49.6 % LAB HEMETOLOGY METHOD 09/29/2024 7:19 PM [facility] Lymphocytes Relative 37.0 % LAB HEMETOLOGY METHOD 09/29/2024 7:19 PM [facility] Monocytes Relative 8.9 % LAB HEMETOLOGY METHOD 09/29/2024 7:19 PM [facility] Eosinophils Relative 3.3 % LAB HEMETOLOGY METHOD 09/29/2024 7:19 PM [facility] Basophils Relative 0.9 % LAB HEMETOLOGY METHOD 09/29/2024 7:19 PM [facility] Immature Granulocytes Relative 0.3 % LAB HEMETOLOGY METHOD 09/29/2024 7:19 PM [facility] Neutrophils Absolute 1.68 1.50 - 7.00 K/mcL LAB HEMETOLOGY METHOD 09/29/2024 7:19 PM [facility] Lymphocytes Absolute 1.25 1.00 - 5.00 K/mcL LAB HEMETOLOGY METHOD 09/29/2024 7:19 PM [facility] Monocytes Absolute 0.30 0.20 - 1.00 K/mcL LAB HEMETOLOGY METHOD 09/29/2024 7:19 PM [facility] Eosinophils Absolute 0.11 0.00 - 0.50 K/mcL LAB HEMETOLOGY METHOD 09/29/2024 7:19 PM [facility] Basophils Absolute 0.03 0.00 - 0.20 K/mcL LAB HEMETOLOGY METHOD 09/29/2024 7:19 PM [facility] Immature Granulocytes Absolute 0.01 0.00 - 0.03 K/mcL LAB HEMETOLOGY METHOD 09/29/2024 7:19 PM EST [facility] Blood Venous blood specimen / Unknown 09/29/2024 12:56 PM EST 09/29/2024 6:13 PM EST [facility] BLOOD ORDERABLES Final Result [facility] [address] [place] [address], documented in this encounter Visit Diagnoses Diagnosis Testicular hypofunction Other testicular hypofunction documented in this encounter Additional Health Concerns Infection Onset Date Last Indicated Resolved Time Respiratory Rule-Out 01/24/2025 01/24/2025 025 6:32 PM EDT COVID-19 Rule-Out 01/24/2025 01/24/2025 01/24/2025 6:32 PM EDT Parainfluenza Virus 01/24/2025 01/24/2025 documented as of this encounter Care Teams Audio Visual Director Relationship Specialty Start Date End Date Zeeshan Wang MD [address] [address] PCP - General 12/11/22 documented as of this encounter
--- OUTSIDE RECORDS SUMMARY | 2025-04-30 14:56 | XMS_ITS | Encounter Summary ---
Author Organization [facility] Address [address] [place] [address] Care Team Providers Care Building Specialist Name Role Phone Zeeshan Wang MD Primary Care Provider [phone] Encounter Details Date Type Department Care Team (Late Contact Info) Description 11/18/[address] [facility] - Main Lab [address] [facility] [place] [address] Valente Coello PA [address] [place] [phone] Gross hematuria Social History Tobacco Use Types [...] PM EST Office Visit Internal Medicine - [place] [address] [place] [address] Zeeshan Wang MD [address] [place] [address] documented as of this encounter Procedures Procedure [...] Final Result [facility] [address] [place] [address], documented in this encounter Visit Diagnoses Diagnosis Gross hematuria documented in this encounter Additional Health Concerns Infection Onset Date Last Indicated Resolved Time Respiratory Rule-Out 01/24/2025 01/24/2025 025 6:32 PM EDT COVID-19 Rule-Out 01/24/2025 01/24/2025 01/24/2025 6:32 PM EDT Parainfluenza Virus 01/24/2025 01/24/2025 documented as of this encounter Care Teams Building Specialist Relationship Specialty Start Date End Date Zeeshan Wang MD [address] [facility] [address] [place] [address] PCP - General 12/11/22 documented as of this encounter
--- OUTSIDE RECORDS SUMMARY | 2025-04-30 14:56 | XMS_ITS | Encounter Summary ---
Author Organization [facility] Address [address] [place] [address] Care Team Providers Care Plumbing Assembler Name Role Phone Zeeshan Wang MD Primary Care Provider [phone] Encounter Details Date Type Department Care Team (Late Contact Info) Description 11/26/2024 Lab Requisition [facility] - Main Lab [address] [facility] [place] [address] Valente Coello PA [address] [place] [phone] Gross hematuria Social History Tobacco Use Types [...] PM EST Office Visit Internal Medicine - [place] [address] [facility] [address] [place] [address] Zeeshan Wang MD [address] [place] [address] documented as of this encounter Procedures Procedure Name Priority Date/Time Associated Diagnosis Comments AP OUTSIDE CONSULT Routine 11/18/2024 12 :00 AM EDT Gross hematuria documented in this encounter Results * Anatomic pathology outside consult (11/18/2024 12:00 AM EDT) Final Diagnosis A. Urine, Voided, ([id number]): Negative for high grade urothelial carcinoma. Results of [employer] fluorescence in situ hybridization (FISH) testing: CEP3: Normal CEP7: Normal CEP17: Normal LSI 9p21: Normal Interpretation: Normal profile Controls stained appropriately. Note: The results are intended as a screening device and should be interpreted in association with other clinical and pathological findings. 12/01/2024 9:50 AM EDT [facility] Clinical Information Gross hematuria R31.0 Received one ThinPrep slide for cytology and one ThinPrep slide for U[employer] FISH 12/01/2024 9:50 AM EDT [facility] Gross Description A. Urine, Voided, ([id number]): Received one ThinPrep slide for cytology and one ThinPrep slide for [employer]Vysion FISH 12/01/2024 9:50 AM EDT [facility] Disclaimer Unless otherwise specified, all tissue is 10% NB formalin fixed and paraffin embedded. Technical pathology services provided by [facility] at [address] [place] [address] [address], [place] [address] (CLIA #[id number]/Julia Lundy MD, Secondary Connector Armature) 12/01/2024 9:50 AM EDT [facility] Tissue Urine specimen from urethra / Unknown 11/18/2024 11/26/2024 8:31 AM EDT us Val[facility] PATHOLOGY ORDERAB LES Final Result [facility] [address] [place] [address], documented in this encounter Visit Diagnoses Diagnosis Gross hematuria documented in this encounter Additional Health Concerns Infection Onset Date Last Indicated Resolved Time Respiratory Rule-Out 01/24/2025 01/24/2025 025 6:32 PM EDT COVID-19 Rule-Out 01/24/2025 01/24/2025 01/24/2025 6:32 PM EDT Parainfluenza Virus 01/24/2025 01/24/2025 documented as of this encounter Care Teams Plumbing Assembler Relationship Specialty Start Date End Date Zeeshan Wang MD [address] [address] PCP - General 12/11/22 documented as of this encounter
--- OUTSIDE RECORDS SUMMARY | 2025-04-30 14:56 | XMS_ITS | Clinical Summary ---
Author Organization [facility] [place] [address] Phone Care Team Providers Care Band Splitter Name Role Phone Zeeshan Wang MD Primary Care Provider [phone] Allergies No known active allergies Medications atorvastatin (LIPITOR) 20 mg tablet TAKE 1 TABLET BY MOUTH DAILY 90 tablet 2 5 Active tamsulosin (FLOMAX) 0.4 mg 24 hr capsule Take 1 capsule (0.4 mg total) by mouth 1 (one) time each day. 90 capsule 1 5 Active apixaban (ELIQUIS) 5 mg tablet Take 1 tablet (5 mg total) by mouth 2 (two) times a day. 180 each 1 5 09/12/19 26 Active multivitamin (multivitamin with folic acid) tablet Take 1 tablet by mouth daily. 9 Active metFORMIN (GLUCOPHAGE) 500 mg tablet Take 2 tablets (1,000 mg total) by mouth 2 (two) times a day with meals. 3 Active loratadine (CLARITIN) 10 mg tablet Take 1 tablet (10 mg total) by mouth 1 (one) time each day. 3 Active lisinopriL (PRINIVIL,ZESTR IL) 20 mg tablet Take 1 tablet (20 mg total) by mouth 1 (one) time each day. Active metoprolol succinate (TOPROL-XL) 25 mg 24 hr tablet Take 1 tablet (25 mg total) by mouth 1 (one) time each day. 90 tablet 1 5 Active levothyroxine (SYNTHROID, LEVOTHROID) 175 mcg tablet Take 1 tablet (175 mcg total) by mouth 1 (one) time each day before breakfast. 90 tablet 1 5 Active ammonium lactate (LAC-HYDRIN) 12 % lotion Apply topically if needed for dry skin. 400 g 1 5 Active metoprolol succinate (TOPROL-XL) 25 mg 24 hr tablet Take 1 tablet (25 mg total) by mouth 1 (one) time each day. 90 tablet 1 5 04/01/20 25 Discontinu ed(Reorder ) levothyroxine (SYNTHROID, LEVOTHROID) 175 mcg tablet Take 1 tablet (175 mcg total) by mouth 1 (one) time each day before breakfast. 04/20/20 25 Discontinu ed(Reorder ) ammonium lactate (LAC-HYDRIN) 12 % lotion Apply topically if needed for dry skin. 04/20/20 25 Discontinu ed(Reorder ) Encounters Date Type Department Care Team Description 04/17/2025 11:52 AM EDT - 04/17/2025 11:59 PM EDT Hospital Encounter XRAY - [facility] [address] [place] [address] Chronic pain of both knees Discharge Disposition: Home or Self Care 03/23/2025 3:30 PM EDT Office Visit Internal Medicine - [address] [place] [phone] Zeeshan Wang MD Chronic systolic congestive heart failure (CMS/HCC V24, CMS/HCC V28) (Primary Dx); Stage 2 chronic kidney disease; Diabetes mellitus type 1.5, managed as type 2 (CMS/HCC V24, CMS/HCC V28); Memory loss; Pain in both knees, unspecified chronicity; Primary hypertension from Last 3 Months Surgical History Surgery Date Site/Laterality Comments OTHER SURGICAL HISTORY PROCEDURE: VT COLECTOMY PARTIAL W/ANASTOMOSIS COLONOSCOPY 01/02/2018 PROCEDURE: HISTORICAL COLONOSCOPY; COMMENT: polyp, repeat 5 yrs TOTAL KNEE ARTHROPLASTY Right PROCEDURE: HISTORICAL TOTAL KNEE REPLACE THYROIDECTOMY 1994 PROCEDURE: HISTORICAL TOTAL THYROIDECTOMY OTHER SURGICAL HISTORY Right PROCEDURE: VT EXC B9 LES MRGN XCP SK TG F/E/E/N/L/M 1.1-2.0CM; COMMENT: Cheek excision inclusion cyst Medical History Medical History Date Comments Hypertension 09/28/2017 DX:Hypertension Recurrent deep vein thrombos is (DVT) ([facility] V24, [facility] V28) 09/28/2017 DX:Recurrent deep vein thro mbosis (DVT) (HCC); COMMENT: Since age 62 left; on coumadin. DM (diabetes mellitus), type 2 with peripheral vascular complications ([facility] V24, [facility] V28) 09/28/2017 DX:DM (diabetes mellitus), type 2 with peripheral vascular complications (HCC); COMMENT: Diabetic ulcer LLE History of colon cancer 09/28/2017 DX:Histo ry of colon cancer; COMMENT: Diagnosed age 57, s/p partial colectomy, and adjuvent chemoradiation History of tobacco abuse 09/28/2017 DX:Hist ory of tobacco abuse Obesity (BMI 30-39.9) 09/28/2017 DX:Obesity (BMI 30-39.9) History of thyroid cancer 10/01/2017 DX:His tory of thyroid cancer; COMMENT: S/o thyroidectomy 1994, follows with endocrinology. Recent US with no pathologic lymphnodes 08/2017 Microalbuminuria 10/02/2017 DX:Microalbumin uria Type 2 diabetes mellitus wit h renal manifestations ([facility] V24, [facility] V28) 10/09/2017 DX:Type 2 diabetes mellitus with renal manifestations ([facility]) Hypothyroidism 09/28/2017 DX:Hypothyroidis m BPH (benign prostatic hyperplasia) 09/28/2017 DX:BPH (benign prostatic hyperplasia); COMMENT: Follows with urology OA (osteoarthritis) of knee 04/17/2018 DX:O A (osteoarthritis) of knee; COMMENT: Left; follows with orthopedics. TKR pending Obstructive sleep apnea 07/22/2018 DX:Obstr uctive sleep apnea; COMMENT: [facility] Home Polysomnogram: Date 07/16/2018; AHI 27, Unclassified apneas 50; Obstructive apneas 72; Central apneas 13; Mixed apneas 2; hypopneas 6; average oxygen saturation 99% (lowest 89% without saturations <88% for 5% or more of study) - Obstructive Sleep Apnea - moderate; mostly obstructive and unclassified apneas; without sleep related hypoventilation by 201* S/P knee replacement 09/19/2018 DX:S/P knee replacement; COMMENT: Right Allergic rhinitis 03/16/2016 DX:Allergic rh initis Erectile dysfunction 09/19/2018 DX:Erectile dysfunction Diverticulosis 09/19/2018 DX:Diverticulosi s Colon polyps 09/19/2018 DX:Colon polyps Diabetic ulcer of lower extr emity ([facility] V24, [facility] V28) 09/19/2018 DX:Diabetic ulcer of lower extremity ([facility]); COMMENT: Left Recurrent cellulitis of lowe r extremity 10/09/2017 DX:Recurrent cellulitis of l ower extremity; COMMENT: Left: IP 09/2017, previous cellulitis episode-06/2017 CHF (congestive heart failur e) ([facility] V24, [facility] V28) 10/11/2018 DX:CHF (congestive heart fa ilure) ([facility]); COMMENT: Combined diastolic and systolic. EF 40-45 % last TTE 10/2018 Osteoarthritis 04/17/2018 DX:Osteoarthriti s; COMMENT: Left Knee; follows with orthopedics. S/p TKR 09/2018, OA of shoulders, Thoracic & Lumbar spine SVT (supraventricular tachyc ardia) ([facility] V24) 05/07/2019 DX:SVT (supraventricular tachycardia) ([facility]); COMMENT: S/p loop recorder 05/2019 Referred to cardiology Family History Medical History Relation Name Comments Other: Unknown Father Hypertension Mother Relation Name Status Comments Father Mother Social History Tobacco Use Types Packs/Day Years [...] on file Sexual Orientation Not on file Obstetrics History Last Filed Vital Signs Vital Sign Reading Time Taken Comments Blood Pressure 134/78 03/23/2025 3:19 PM EDT Pulse 68 03/23/2025 3:19 PM EDT Temperature 36.2 C (97.1 F) 03/23/2025 3:19 PM EDT Respiratory Rate 18 03/23/2025 3:19 PM EDT Oxygen Saturation 96% 03/23/2025 3:19 PM EDT Inhaled Oxygen Concentration - - Weight 118 kg (261 lb) 03/23/2025 3:19 PM EDT Height 177.8 cm (5' 10 ) 03/23/2025 3:19 PM EDT Body Mass Index 37.45 03/23/2025 3:19 PM EDT Plan of Treatment Upcoming Encounters Date Type Department Care Team (Late st Contact Info) Description 08/18/2025 1:15 PM EST Office Visit Internal Medicine - [place] [address] [facility] [address] [place] [address] Zeeshan Wang MD [address] [place] [phone] Health Maintenance Due Date Last Done Comments Diabetes: Annual Foot Exam 1957 Diabetes: Annual Retina Eye Exam 1955 Zoster Vaccines (1 of 2) 1966 Pneumococcal Vaccine: 50+ Years (2 of 2 - PCV) 08/03/2016 08/03/2015 RSV Immunization Adult Patients (1 - 1-dose 75+ series) 2022 Colorectal Cancer Screening: Colonoscopy 08/12/2022 Falls Risk Assessment 08/12/2022 Medicare Annual Wellness Visit 08/12/2022 Social Influencers of Health Screening 08/12/2022 Diabetes: Annual Urine Albumin-Creatinine Ratio (uACR) 08/16/2022 COVID-19 Vaccine ( season) 2024 08/15/2021, 12/08/2020, 11/11/2020 Depression Screening 09/03/2024 Influenza Vaccine (#1) 2025 3, 05/10/2022, 08/15/2021, Additional history exists Diabetes: Blood Sugar Control Test (HGBA1C) 09/24/2025 03/24/2025, 04/06/2020 Diabetes: Annual GFR (Glomerular Filtration Rate) 03/24/2026 03/24/2025, 01/24/2025, 04/30/2020 Hypertension/CHF/CAD Annual BMP Blood Test 03/24/2026 03/24/2025, 01/24/2025, 04/30/2020 DTaP,Tdap,and Td Vaccines (3 - Td or Tdap) 12/08/2027 12/07/2017, 08/03/2015 Cholesterol Screening (Lipid Panel) 03/24/2030 03/24/2025 Hepatitis C Screening Completed 04/23/2019 HIB Vaccines Aged Out No longer eligi ble based on patient's age to complete this topic HPV Vaccines Aged Out No longer eligi ble based on patient's age to complete this topic Hepatitis A Vaccines Aged Out No long er eligible based on patient's age to complete this topic Hepatitis B Vaccines Aged Out No long er eligible based on patient's age to complete this topic IPV Vaccines Aged Out No longer eligi ble based on patient's age to complete this topic MMR Vaccines Aged Out No longer eligi ble based on patient's age to complete this topic Meningococcal ACWY Vaccine Aged Out N o longer eligible based on patient's age to complete this topic Meningococcal B Vaccine Aged Out No l onger eligible based on patient's age to complete this topic RSV Immunization Patients Under 20 months Aged Out No longer eligible based on patient's age to complete this topic Varicella Vaccines Aged Out No longer eligible based on patient's age to complete this topic Procedures Procedure Name Priority Date/Time Associated Diagnosis Comments XR KNEE 4+ VIEWS BILAT Routine 04/17/2025 12:03 PM EDT Chronic pain of both knees CBC WITH AUTO DIFFERENTIAL Routine 03/24/2025 12:29 PM EDT Chronic systolic congestive heart failure (CMS/HCC V24, CMS/HCC V28) 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, managed as type 2 (CMS/HCC V24, CMS/HCC V28) Memory loss Pain in both knees, unspecified chronicity Primary hypertension CBC AND DIFFERENTIAL Routine 03/24/2025 12:29 PM EDT Chronic systolic congestive heart failure (CMS/HCC V24, CMS/HCC V28) 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, managed as type 2 (CMS/HCC V24, CMS/HCC V28) Memory loss Pain in both knees, unspecified chronicity Primary hypertension COMPREHENSIVE METABOLIC PANEL Routine 03/24/2025 12:29 PM EDT Chronic systolic congestive heart failure (CMS/HCC V24, CMS/HCC V28) 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, managed as type 2 (CMS/HCC V24, CMS/HCC V28) Memory loss Pain in both knees, unspecified chronicity Primary hypertension LIPID PANEL WITH REFLEX TO DIRECT LDL Routine 03/24/2025 12:29 PM EDT Chronic systolic congestive heart failure (CMS/HCC V24, CMS/HCC V28) 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, managed as type 2 (CMS/HCC V24, CMS/HCC V28) Memory loss Pain in both knees, unspecified chronicity Primary hypertension THYROID STIMULATING HORMONE Routine 03/24/2025 12:29 PM EDT Chronic systolic congestive heart failure (CMS/HCC V24, CMS/HCC V28) 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, managed as type 2 (CMS/HCC V24, CMS/HCC V28) Memory loss Pain in both knees, unspecified chronicity Primary hypertension HEMOGLOBIN A1C Routine 03/24/2025 12:29 PM EDT Chronic systolic congestive heart failure (CMS/HCC V24, CMS/HCC V28) 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, managed as type 2 (CMS/HCC V24, CMS/HCC V28) Memory loss Pain in both knees, unspecified chronicity Primary hypertension VITAMIN B12 Routine 03/24/2025 12:29 PM EDT Chronic systolic congestive heart failure (CMS/HCC V24, CMS/HCC V28) 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, managed as type 2 (CMS/HCC V24, CMS/HCC V28) Memory loss Pain in both knees, unspecified chronicity Primary hypertension ECG ANNOTATED 01/28/2025 from Last 3 Months Results * XR Knee 4+ Views bilat (04/17/2025 12:03 PM EDT) Anatomical Region Laterality Modality Lower Extremities, Knee Bilateral Radiogra phic Imaging 04/24/2025 4:39 PM EDT Impressions 04/24/2025 4:47 PM EDT 1. Intact right orthopedic hardware 2. Severe osteoarthritic degenerative changes of the left knee -------- FINAL REPORT -------- Dictated By: Gloria Humphries Dictated Date: 04/24/2025 16:39 ET Assigned Physician: Gloria Humphries Reviewed and Electronically Signed By: Gloria Humphries Signed Date: 04/24/2025 16:47 ET Workstation ID: [id number] Transcribed By: Self Edit Transcribed Date: 04/24/2025 16:39 ET Narrative 04/24/2025 4:47 PM EDT HISTORY: JOINT PAIN, KNEE TECHNIQUE: 4 views of the bilateral knees COMPARISON: Left knee radiograph from 01/25/2023 FINDINGS: Right: The patient is status post total knee arthroplasty. The femoral and tibial components are grossly intact. No perihardware lucencies or periprosthetic fractures are identified. Extensive osteoarthritic degenerative changes are identified at the knee. There is moderate patellofemoral joint space narrowing. No suprapatellar joint effusion. Left: No acute fracture or dislocation. There are severe medial and lateral compartmental joint space narrowing with subchondral sclerosis. Moderate-sized osteophytes are present at the femoral condyles and tibial plateaus. A trace suprapatellar joint effusion is identified. Mild patellofemoral joint space narrowing is present. Enthesopathy of the patella. Vascular calcifications are present. Procedure Note Gloria Humphries MD - 04/24/2025 HISTORY: JOINT PAIN, KNEE TECHNIQUE: 4 views of the bilateral knees COMPARISON: Left knee radiograph from 01/25/2023 FINDINGS: Right: The patient is status post total knee arthroplasty. The femoral and tibialcomponents are grossly intact. No perihardware lucencies or periprostheticfractures are identified. Extensive osteoarthritic degenerative changesare identified at the knee. There is moderate patellofemoral joint spacenarrowing. No suprapatellar joint effusion. Left: No acute fracture or dislocation. There are severe medial and lateralcompartmental joint space narrowing with subchondral sclerosis.Moderate-sized osteophytes are present at the femoral condyles and tibialplateaus. A trace suprapatellar joint effusion is identified. Mildpatellofemoral joint space narrowing is present. Enthesopathy of thepatella. Vascular calcifications are present. IMPRESSION: 1. Intact right orthopedic hardware 2. Severe osteoarthritic degenerative changes of the left knee -------- FINAL REPORT -------- Dictated By: Gloria Humphries Dictated Date: 04/24/2025 16:39 ET Assigned Physician: Gloria Humphries Reviewed and Electronically Signed By: Gloria Humphries Signed Date: 04/24/2025 16:47 ET Workstation ID: [id number] Transcribed By: Self Edit Transcribed Date: 04/24/2025 16:39 ET Rian MATHEWS IMG XR PROCEDURES Final Result * Lipid panel with reflex to direct LDL (03/24/2025 12:29 PM EDT) Cholesterol 157 0 - 200 mg/dL LAB CHEMISTRY METHOD 03/24/2025 5:19 PM EDT [facility] Triglycerides 81 0 - 150 mg/dL LAB CHEMISTRY METHOD 03/24/2025 5:19 PM EDT [facility] HDL 73 >=40 mg/dL LAB CHEMISTRY METHOD 03/24/2025 5:19 PM EDT [facility] LDL Calculated 68 0 - 100 mg/dL LAB CHEMISTRY METHOD 03/24/2025 5:19 PM EDT [facility] VLDL Cholesterol Rigo 16.2 mg/dL LAB CHEMISTRY METHOD 03/24/2025 5:19 PM EDT [facility] Non HDL Chol. (LDL+VLDL) 84 <145 mg/dL LAB CHEMISTRY METHOD 03/24/2025 5:19 PM EDT [facility] Chol/HDL Ratio 2.2 0.0 - 4.4 LAB CHEMISTRY METHOD 03/24/2025 5:19 PM [facility] Blood Venous blood specimen / Unknown Venipuncture / Unknown 03/24/2025 12:29 PM EDT 03/24/2025 12:29 PM EDT us Zeeshan Wang MD LAB BLOOD ORDERABLES Final Resul t [facility] [address] [place] [address], * (ABNORMAL) CBC auto differential (03/24/2025 12:29 PM EDT) WBC 4.1(L) 4.8 - 10.8 K/mcL LAB HEMETOLOGY METHOD 03/24/2025 2:17 PM EDT [facility] RBC 5.00 4.50 - 5.50 M/mcL LAB HEMETOLOGY METHOD 03/24/2025 2:17 PM EDT [facility] Hemoglobin 13.8 13.5 - 17.5 g/dL LAB HEMETOLOGY METHOD 03/24/2025 2:17 PM EDT [facility] Hematocrit 43.3 42.0 - 54.0 % LAB HEMETOLOGY METHOD 03/24/2025 2:17 PM EDT [facility] MCV 86.1 79.0 - 98.0 FL LAB HEMETOLOGY METHOD 03/24/2025 2:17 PM EDT [facility] MCH 27.4 27.0 - 32.0 pcg LAB HEMETOLOGY METHOD 03/24/2025 2:17 PM EDT [facility] MCHC 31.9(L) 32.0 - 37.0 g/dL LAB HEMETOLOGY METHOD 03/24/2025 2:17 PM EDT [facility] RDW 14.8 11.0 - 15.0 % LAB HEMETOLOGY METHOD 03/24/2025 2:17 PM EDT [facility] Platelets 190 130 - 400 K/mcL LAB HEMETOLOGY METHOD 03/24/2025 2:17 PM EDT [facility] MPV 11.6(H) 7.0 - 11.0 FL LAB HEMETOLOGY METHOD 03/24/2025 2:17 PM EDT [facility] NRBC 0.0 <1.0 % LAB [facility]OLOGY [facility] NR[facility] Absolute 0.00 <0.10 K/mcL LAB HEMETOLOGY METHOD 03/24/2025 2:17 PM [facility] Neutrophils Relative 53.8 % LAB HEMETOLOGY METHOD 03/24/2025 2:17 PM [facility] Lymphocytes Relative 36.0 % LAB HEMETOLOGY METHOD 03/24[facility]25 2:[facility] Monocytes Relative 6.8 % LAB HEMETOLOGY METHOD 03/24/2025 2:17 PM [facility] Eosinophils Relative 2.2 % LAB HEMETOLOGY METHOD 03/24/2025 2:17 PM [facility] Basophils Relative 1.0 % LAB HEMETOLOGY METHOD 03/24/2025 2:17 PM [facility] Immature Granulocytes Relative 0.2 % LAB HEMETOLOGY METHOD 03/24/2025 2:17 PM [facility] Neutrophils Absolute 2.23 1.50 - 7.00 K/mcL LAB HEMETOLOGY METHOD 03/24/2025 2:17 PM [facility] Lymphocytes Absolute 1.49 1.00 - 5.00 K/mcL LAB HEMETOLOGY METHOD 03/24/2025 2:17 PM [facility] Monocytes Absolute 0.28 0.20 - 1.00 K/mcL LAB HEMETOLOGY METHOD 03/24/2025 2:17 PM [facility] Eosinophils Absolute 0.09 0.00 - 0.50 K/mcL LAB HEMETOLOGY METHOD 03/24/2025 2:17 PM [facility] Basophils Absolute 0.04 0.00 - 0.20 K/mcL LAB HEMETOLOGY METHOD 03/24/2025 2:17 PM EDT [facility] Immature Granulocytes Absolute 0.01 0.00 - 0.03 K/mcL LAB HEMETOLOGY METHOD 03/24/2025 2:17 PM EDT [facility] Blood Venous blood specimen / Unknown Venipuncture / Unknown 03/24/2025 12:29 PM EDT 03/24/2025 12:29 PM EDT us Zeeshan Wang MD LAB BLOOD ORDERABLES Final Resul t Performing Organization Address City/[facility]/ZIP Co de Phone Number [facility] [address] [place] [address], [place] [phone] * (ABNORMAL) Thyroid stimulating hormone (03/24/2025 12:29 PM EDT) TSH 45.06(H) 0.40 - 4.00 mcIU/mL LAB CHEMISTRY METHOD 03/24/2025 5:09 PM EDT [facility] Blood Venous blood specimen / Unknown Venipuncture / Unknown 03/24/2025 12:29 PM EDT 03/24/2025 12:29 PM EDT us Zeeshan Wang MD LAB BLOOD ORDERABLES Final Resul t Performing Organization Address City/[facility]/ZIP Co de Phone Number [facility] [address] [place] [address], [place] [phone] * (ABNORMAL) Hemoglobin A1c (03/24/2025 12:29 PM EDT) Hemoglobin A1C 9.5(H) <6.5 % LAB CHEMISTRY METHOD 03/24/2025 5:58 PM EDT [facility] Mean Bld Glu Estim. 226 mg/dL LAB CHEMISTRY METHOD 03/24/2025 5:58 PM EDT [facility] Blood Venous blood specimen / Unknown Venipuncture / Unknown 03/24/2025 12:29 PM EDT 03/24/2025 12:29 PM EDT us Zeeshan Wang MD LAB BLOOD ORDERABLES Final Resul t Performing Organization Address City/[facility]/ZIP Co de Phone Number [facility] [address] [place] [address], [place] [phone] * Vitamin B12 (03/24/2025 12:29 PM EDT) [facility] Vitamin B-12 325 250 - 900 pcg/mL LAB CHEMISTRY METHOD 03/24/2025 5:19 PM EDT [facility] Blood Venous blood specimen / Unknown Venipuncture / Unknown 03/24/2025 12:29 PM EDT 03/24/2025 12:29 PM EDT us Zeeshan Wang MD LAB BLOOD ORDERABLES Final Resul t Performing Organization Address City/[facility]/ZIP Co de Phone Number [facility] [address] [place] [address], [place] [phone] * (ABNORMAL) Comprehensive metabolic panel (03/24/2025 12:29 PM EDT) [facility] Sodium 138 133 - 145 mmol/L LAB CHEMISTRY METHOD 03/24/2025 5:19 PM EDT [facility] Potassium 4.5 3.5 - 5.5 mmol/L LAB CHEMISTRY METHOD 03/24/2025 5:19 PM EDT [facility] Chloride 105 96 - 110 mmol/L LAB CHEMISTRY METHOD 03/24/2025 5:19 PM EDT [facility] CO2 30 21 - 32 mmol/L LAB CHEMISTRY METHOD 03/24/2025 5:19 PM EDT [facility] Anion Gap 3 3 - 11 LAB CHEMISTRY METHOD 03/24/2025 5:19 PM EDT [facility] Glucose 193(H) 70 - 100 mg/dL LAB CHEMISTRY METHOD 03/24/2025 5:19 PM [facility] BUN 22 5 - 25 mg/dL LAB CHEMISTRY METHOD 03/24/2025 5:19 PM [facility] Creatinine 1.59(H) 0.70 - 1.30 mg/dL LAB CHEMISTRY METHOD 03/24/2025 5:19 PM [facility] eGFR 44(L) >=60 mL/min/1. 73m2 LAB CHEMISTRY METHOD 03/24/2025 5:19 PM [facility] Comment:Calculation based on the Chronic Kidney Disease Epidemiology Collaboration (CKD-EPI) equation refit without adjustment for race. BUN/Creatinine Ratio 13.8 LAB CHEMISTRY METHOD 03/24/2025 5:19 PM [facility] Calcium 9.3 8.5 - 10.5 mg/dL LAB CHEMISTRY METHOD 03/24/2025 5:19 PM [facility] AST (SGOT) 45(H) 10 - 42 unit/L LAB CHEMISTRY METHOD 03/24/2025 5:19 PM [facility] ALT (SGPT) 26 10 - 60 unit/L LAB CHEMISTRY METHOD 03/24/2025 5:19 PM [facility] Alkaline Phosphatase 66 42 - 121 unit/L LAB CHEMISTRY METHOD 03/24/2025 5:19 PM [facility] Total Protein 7.3 6.0 - 8.0 g/dL LAB CHEMISTRY METHOD 03/24/2025 5:19 PM [facility] Albumin 4.1 3.2 - 5.0 g/dL LAB CHEMISTRY METHOD 03/24/2025 5:19 PM [facility] Total Bilirubin 0.5 0.0 - 1.4 mg/dL LAB CHEMISTRY METHOD 03/24/2025 5:19 PM [facility] Blood Venous blood specimen / Unknown Venipuncture / Unknown 03/24/2025 12:29 PM EDT 03/24/2025 12:29 PM EDT us Zeeshan Wang MD LAB BLOOD ORDERABLES Final Resul t [facility] [address] [place] [address], [place] [phone] * ECG-Annotated (01/28/2025) us Provider Onbase ECG ORDERABLES Final Result from Last 3 Months Additional Health Concerns Infection Onset Date Last Indicated Parainfluenza Virus 01/24/2025 01/24/2025 Insurance [facility] Member Subscriber Plan / Payer (Ef fective 2016-Present) Name:Timothy Westbrook Relation to Subscriber:Self Name:Timothy Westbrook Payer ID:[id number] Group ID:[id number] Type:Not on file Address: [place] [address] [phone] Advance Directives Documents on File Type Date Recorded Patient Chief Librarian Branch Or Department Expl anation Health Care Decision (hx) 02/17/2016 AD RAMOS DIRECTIVE Health Care Decision (hx) 02/17/2016 AD RAMOS DIRECTIVE Health Care Decision (hx) 02/17/2016 AD RAMOS DIRECTIVE Health Care Decision (hx) 02/17/2016 AD RAMOS DIRECTIVE Health Care Decision (hx) 02/17/2016 AD RAMOS DIRECTIVE Health Care Decision (hx) 02/17/2016 AD RAMOS DIRECTIVE Health Care Decision (hx) 02/17/2016 AD RAMOS DIRECTIVE Health Care Decision (hx) 02/17/2016 AD RAMOS DIRECTIVE Health Care Decision (hx) 02/17/2016 AD RAMOS DIRECTIVE Health Care Decision (hx) 02/17/2016 AD RAMOS DIRECTIVE Health Care Decision (hx) 02/16/2016 AD RAMOS DIRECTIVE Health Care Decision (hx) 02/16/2016 AD RAMOS DIRECTIVE Health Care Decision (hx) 02/16/2016 AD RAMOS DIRECTIVE Health Care Decision (hx) 02/16/2016 AD RAMOS DIRECTIVE Health Care Decision (hx) 02/16/2016 AD RAMOS DIRECTIVE Health Care Decision (hx) 02/16/2016 AD RAMOS DIRECTIVE Health Care Decision (hx) 02/16/2016 AD RAMOS DIRECTIVE Health Care Decision (hx) 02/16/2016 AD RAMOS DIRECTIVE Health Care Decision (hx) 02/16/2016 AD RAMOS DIRECTIVE Health Care Decision (hx) 02/16/2016 AD RAMOS DIRECTIVE Care Teams Band Splitter Relationship Specialty Start Date End Date Zeeshan Wang MD [address] [place] [id number] PCP - General 12/11/22
== END 2025-04-30 15:08 | disposition home or self-care (01) ==
LOC: HO.HKAS 14:11
PROVIDERS: PCP Internal Medicine; Visit Provider Internal Medicine Nephrology
DX: I10 Essential (primary) hypertension (principal); N18.31 Chronic kidney disease, stage 3a; R80.8 Other proteinuria
CPT/HCPCS: 99214

== ENCOUNTER → 2025-04-30 14:11 | Outpatient (BNVA) | payer OTHER, SELFPAY | PROVIDERS: PCP Internal Medicine; Visit Provider Internal Medicine Nephrology | DX: I10 Essential (primary) hypertension (principal); N18.31 Chronic kidney disease, stage 3a; R80.8 Other proteinuria | CPT/HCPCS: 99212 ==